=== PATIENT | male | born 1955 ===

== ENCOUNTER 2019-01-17 01:14 | Emergency (ER) | payer OTHER ==
--- NOTE | 2019-01-17 07:55 | RAD ---
EXAM: Chest PA and lateral: HISTORY: Cough COMPARISON: None FINDINGS: Sternotomy wires and vascular rings are noted. Heart: Normal cardiac silhouette Aorta: Unremarkable Pulmonary vessels: Normal Costophrenic angles: Costophrenic angles are clear. Lungs: No consolidation or masses. Pneumothorax: No pneumothorax Osseous structures: No osseous abnormalities IMPRESSION: No acute cardiopulmonary process.
== END 2019-01-17 02:23 | disposition home or self-care (01) ==
LOC: ERS 01:14
DX: R05 Cough (principal); E11.9 Type 2 diabetes mellitus without complications; Z79.4 Long term (current) use of insulin
CPT/HCPCS: 71046

== ENCOUNTER 2019-12-24 13:56 | Inpatient (IN) | payer MEDICARE, OTHER ==
[2019-12-24] MEDS ORDERED: Cefepime 2 GM VIAL ONE (14:29)
[2019-12-24] MEDS ORDERED: Piperacillin/Tazobactam 4.5 GM VIAL ONE ×2 (14:29→15:07)
[2019-12-24] MEDS ORDERED: Ibuprofen 600 MG TAB PO SCH (14:33)
[2019-12-24] MEDS ORDERED: Acetaminophen 500 MG TAB PO SCH (14:33)
[2019-12-24] MEDS ORDERED: Piperacillin/Tazobactam 4.5 GM in Sodium Chloride 0.9% 100 ML IVPB SCH (15:00)
[2019-12-24] MEDS ORDERED: Acetaminophen 500 MG TAB ONE (15:07)
[2019-12-24] MEDS ORDERED: Ibuprofen 200 MG TAB ONE (15:07)
[2019-12-24] MEDS ORDERED: Vancomycin 1 GM/200 ML BAG ONE (15:07)
[2019-12-24] MEDS ORDERED: Sodium Chloride 0.9% 2,000 ML IV SCH (15:15)
[2019-12-24 15:30] LABS: #Basophils 0.1 thou/uL (0.0-0.2); #Lymphocytes 1.4 thou/uL (1.20-3.40); #Monocytes 1.5 thou/uL (0.11-0.59); #Neutrophils 12.8 thou/uL (1.40-6.50); %Basophils 0.4 % (0.0-1.0); %Eosinophils 0.2 % (0.0-10.0); %Lymphocytes 8.7 % (21.0-51.0); %Monocytes 9.4 % (0.0-10.0); %Neutrophils 81.3 % (42.0-75.0); Hemoglobin 12.7 g/dL (14.0-18.0); Mean Corpuscular HGB CONC 31.8 g/dL (32.0-36.0); Mean Corpuscular Hemoglobin 28.9 pg (27.0-31.0); Mean Corpuscular Volume 90.7 fL (78.0-98.0); Mean Platelet Volume 7.3 fL (7.4-10.4); Platelet Count 387 thou/uL (130-400); RBC Distribution Width 11.7 % (11.5-14.5); Red Blood Cell (RBC) Count 4.41 mill/uL (4.70-6.10); White Blood Cell (WBC) Count 15.7 thou/uL (4.8-10.8)
--- NOTE | 2019-12-24 15:37 | RAD ---
Exam: Chest one view HISTORY:Hyperglycemia Comparison: 01/17/2019 FINDINGS: Cardiac silhouette:Normal cardiac silhouette. Stable epicardial pacer leads, vascular rings and landry otomy wires Aorta: Unremarkable Pulmonary vessels: Normal Costophrenic angles: Clear LUNGS: No masses or consolidation. Pneumothorax: None Osseous abnormalities: None IMPRESSION: No acute cardiopulmonary process.
[2019-12-24 15:49] LABS: ALT (SGPT) 10 U/L (8-55); AST (SGOT) 12 U/L (5-34); Albumin 2.9 g/dL (3.4-4.8); Alkaline Phosphatase 388 U/L (40-110); Anion Gap 16 mmol/L (10-20); BUN (Urea Nitrogen) 35 mg/dL (8.4-25.7); Bilirubin, Total 0.4 mg/dL (0.2-1.2); Calc. Creatinine Clearance 0 mL/min (70-130); Calcium 9.1 mg/dL (7.8-10.44); Carbon Dioxide 26 mmol/L (23-31); Chloride 90 mmol/L (98-107); Estimated GFR-MDRD 30; Globulin 4.2 g/dL (2.4-3.5); Lipase 81 U/L (8-78); Potassium 5.5 mmol/L (3.5-5.1); Protein, Total 7.1 g/dL (5.8-8.1); Sodium 126 mmol/L (136-145)
[2019-12-24 15:50] LABS: Hemoglobin A1c Greater than 14.0 % (4.0-6.0)
[2019-12-24 15:57] LABS: Glucose 869 mg/dL (80-115)
[2019-12-24 16:18] LABS: CKMB 1.8 ng/mL (0-6.6)
[2019-12-24] MEDS ORDERED: Senokot S 8.6-50 MG TAB PO PRN (16:36)
[2019-12-24] MEDS ORDERED: Bisacodyl 5 MG TAB PO PRN (16:36)
[2019-12-24] MEDS ORDERED: INSULIN REGULAR IN 0.9 % NACL 100 UNIT/100 ML BAG ONE (16:36)
[2019-12-24] MEDS ORDERED: Dextrose 5% in Water 1,000 ML IV PRN (16:41)
[2019-12-24] MEDS ORDERED: Dextrose 50% Abboject 50 ML SYRINGE SLOW IVP PRN (16:41)
--- NOTE | 2019-12-24 16:49 | PDOC.HHP ---
Hospitalist HPI - History of Present Illness Left foot pain History of Present Illness: The patient is a pleasant 64 years old gentleman who has significant past medical history of uncontrolled diabetes, CAD with history of CABG x4, who presented to ED with complaint of generalized fatigue, left foot pain. He was found to have a fever of 100.3. He is satting in low 90s on room air. Apparently his has been dealing with Covid for the past weeks. He also endorsed some nonproductive cough. Initial work-up in the ED, found the patient had a blood glucose of greater than 800. His white count was elevated. His lactic acid was normal. His hemoglobin A1c was greater than 14. Anion gap within normal limit, his bicarb was normal. His beta hydroxybutyric acid was elevated. Hospitalist was asked to admit the patient for DKA, and sepsis. However, it does not appear to be patient in full-blown DKA as his bicarb and anion gap were normal. No chest pain or sob. Hospitalist ROS - Review of Systems Other: Complete review of systems have been assessed and discussed with the patient. Negative and positive pertinent symptoms noted in the HPI; ALL other systems are reviewed and negative. Hospitalist History - Past Medical History Cardiac: reports: CAD, HTN Endocrine: reports: Diabetes - Past Surgical History Past Surgical History: reports: Cholecystectomy, CABG - Family History Family History: reports: cardiac disorder - Social History Alcohol: reports: None Living Situation: Alone Domestic Violence: Negative Activity level: uses cane/walker - Exam General Appearance: NAD Eye: PERRL ENT: normocephalic atraumatic Neck: supple Heart: RRR, no murmur Respiratory: CTAB, no wheezes Gastrointestinal: soft, non-tender Extremities: no cyanosis, no clubbing, no edema, 1+ LE edema Extremities - other findings: diabetic foot ulcer, medial aspect of left metatarsal. erythema. no draing Neurological: cranial nerve grossly intact Musculoskeletal: normal tone Psychiatric: normal affect, normal behavior, A&O x 3 Hospitalist Results - Labs Result Diagrams: 12/24/19 15:06 12/24/19 15:07 Lab results: WBC 15.7 thou/uL (4.8-10.8) H 12/24/19 15:06 Hgb 12.7 g/dL (14.0-18.0) L 12/24/19 15:06 Hct 40.0 % (42.0-52.0) L 12/24/19 15:06 MCV 90.7 fL (78.0-98.0) 12/24/19 15:06 Plt Count 387 thou/uL (130-400) 12/24/19 15:06 Neutrophils % 81.3 % (42.0-75.0) H 12/24/19 15:06 Sodium 126 mmol/L (136-145) L 12/24/19 15:07 Potassium 5.5 mmol/L (3.5-5.1) H 12/24/19 15:07 Chloride 90 mmol/L (98-107) L 12/24/19 15:07 Carbon Dioxide 26 mmol/L (23-31) 12/24/19 15:07 BUN 35 mg/dL (8.4-25.7) H 12/24/19 15:07 Creatinine 2.21 mg/dL (0.7-1.3) H 12/24/19 15:07 Glucose 869 mg/dL (80-115) H* 12/24/19 15:07 Lactic Acid 2.2 mmol/L (0.5-2.2) 12/24/19 15:06 Calcium 9.1 mg/dL (7.8-10.44) 12/24/19 15:07 Total Bilirubin 0.4 mg/dL (0.2-1.2) 12/24/19 15:07 AST 12 U/L (5-34) 12/24/19 15:07 ALT 10 U/L (8-55) 12/24/19 15:07 Alkaline Phosphatase 388 U/L (40-110) H 12/24/19 15:07 CK-MB (CK-2) 1.8 ng/mL (0-6.6) 12/24/19 15:22 Troponin I 0.048 ng/mL (< 0.028) H 12/24/19 15:22 B-Natriuretic Peptide 77.0 pg/mL (0-100) 12/24/19 15:22 Serum Total Protein 7.1 g/dL (5.8-8.1) 12/24/19 15:07 Albumin 2.9 g/dL (3.4-4.8) L 12/24/19 15:07 Lipase 81 U/L (8-78) H 12/24/19 15:07 - EKG Interpretation EKG: EKG reviewed by me, normal sinus rhythm. No ST changes or T wave inversion. Exam: Chest one view HISTORY:Hyperglycemia Comparison: 01/17/2019 FINDINGS: Cardiac silhouette:Normal cardiac silhouette. Stable epicardial pacer leads, vas cular rings and landry otomy wires Aorta: Unremarkable Pulmonary vessels: Normal Costophrenic angles: Clear LUNGS: No masses or consolidation. Pneumothorax: None Osseous abnormalities: None IMPRESSION: No acute cardiopulmonary process. Hospitalist H&P A/P - Plan Plan: This is a pleasant 64 years old gentleman who has significant past medical history of uncontrolled hypertension, CAD with history of CABG, who presented to the ED with 1-2 weeks history of generalized weakness, and left foot pain. Sepsis, present on admission - suspect left foot as possible source of infection --Patient is currently hemodynamically stable. Will admit him to telemetry for further management. --Continue broad-spectrum IV antibiotic with Zosyn, and vancomycin. Will request pharmacy to dose --Follow cultures Diabetes type 2, uncontrolled with hyperglycemia, A1C >14 --Does not appeared patient is in DKA, as his anion gap, and bicarb were within normal limits --We will continue with aggressive IV fluid hydration, insulin drip, will get his blood glucose under control. --Add insulin sliding scale Left diabetic foot ulcer with acute cellulitis - concerning for possible osteomyelitis --We will obtain left foot x-ray, may need MRI of his right left foot. --Empiric IV antibiotic as above CAD with history of CABG --Currently is no chest pain. Awaiting for his home medication Cough with history of Covid exposure --Since patient has had fevers on admission, and history of Covid exposure. Will keep patient in isolation, while waiting for Covid PCR --CXR reviewed, unremarkable DVT ppx: Lovenox GI ppx: Pepcid Code Status: Full code Anticipated Dispo: Home when medically stable
[2019-12-24] MEDS ORDERED: Piperacillin/Tazobactam 2.25 GM in Sodium Chloride 0.9% 100 ML IVPB SCH ×2 (17:00→18:00)
[2019-12-24] MEDS ORDERED: Vancomycin 1 GM in Premix Bag 1 BAG IVPB SCH (17:00)
[2019-12-24 18:05] LABS: Bacteria/HPF None Seen HPF (None Seen); Bilirubin Negative (Negative); Blood, Urine 1+ (Negative); Clarity Clear (Clear); Glucose, Urine (Dipstick) Greater than 1000 mg/dL (Negative); Ketone, Urine 20 mg/dL (Negative); Leukocyte Negative Leu/uL (Negative); Nitrite Negative (Negative); Protein, Urine (Dipstick) 100 mg/dL (Neg-Trace); RBC/HPF 0-3 HPF (0-3); Specific Gravity, Urine 1.027 (1.002-1.036); Squamous Epithelial None Seen HPF (0-3); Urobilinogen Normal mg/dL (Less than 2); WBC/HPF 0-3 HPF (0-3); pH, Urine 5.5 (5.0-9.0)
[2019-12-24 18:12] LABS: Lactic Acid 1.2 mmol/L (0.5-2.2)
[2019-12-24 18:41] LABS: Glucose 750 mg/dL (80-115)
[2019-12-24] MEDS: Sodium Chloride 0.9% 1,000 ML IV SCH ×2 (20:41→23:59)
[2019-12-24] MEDS: Famotidine 20 MG TAB PO SCH (20:57)
[2019-12-24] MEDS: HumaLOG 300 UNITS/3 ML VIAL SC PRN ×2 (20:58→22:37)
[2019-12-24 22:19] VITALS: BMI 36.6
[2019-12-24] MEDS ORDERED: HUMULIN R 100 UNITS in Sodium Chloride 0.9% 100 ML IVPB SCH (23:30)
[2019-12-24 23:48] LABS: Anion Gap 13 mmol/L (10-20); BUN (Urea Nitrogen) 33 mg/dL (8.4-25.7); Calc. Creatinine Clearance 68 mL/min (70-130); Carbon Dioxide 23 mmol/L (23-31); Chloride 100 mmol/L (98-107); Estimated GFR-MDRD 42; Sodium 132 mmol/L (136-145)
[2019-12-24 23:53] LABS: Troponin I 0.046 ng/mL (< 0.028)
[2019-12-24 23:56] LABS: Glucose 582 mg/dL (80-115)
[2019-12-25 04:21] LABS: Anion Gap 17 mmol/L (10-20); BUN (Urea Nitrogen) 31 mg/dL (8.4-25.7); Calc. Creatinine Clearance 76 mL/min (70-130); Calcium 8.8 mg/dL (7.8-10.44); Carbon Dioxide 21 mmol/L (23-31); Chloride 102 mmol/L (98-107); Estimated GFR-MDRD 48; Glucose 247 mg/dL (80-115); Potassium 4.2 mmol/L (3.5-5.1); Sodium 136 mmol/L (136-145)
[2019-12-25 04:44] LABS: #Eosinphils 0.1 thou/uL (0.0-0.7); #Lymphocytes 2.2 thou/uL (1.20-3.40); #Monocytes 1.1 thou/uL (0.11-0.59); #Neutrophils 10.2 thou/uL (1.40-6.50); %Basophils 0.3 % (0.0-1.0); %Eosinophils 0.7 % (0.0-10.0); %Monocytes 8.3 % (0.0-10.0); %Neutrophils 74.7 % (42.0-75.0); Hemoglobin 11.9 g/dL (14.0-18.0); Mean Corpuscular HGB CONC 34.4 g/dL (32.0-36.0); Mean Corpuscular Hemoglobin 29.9 pg (27.0-31.0); Mean Corpuscular Volume 87.1 fL (78.0-98.0); Platelet Count 332 thou/uL (130-400); RBC Distribution Width 11.6 % (11.5-14.5); Red Blood Cell (RBC) Count 3.97 mill/uL (4.70-6.10); White Blood Cell (WBC) Count 13.6 thou/uL (4.8-10.8)
[2019-12-25] MEDS: Enoxaparin Sodium 30 MG/0.3 ML SYRINGE SC SCH (07:54)
[2019-12-25] MEDS: Sodium Chloride 0.9% 1,000 ML IV SCH ×3 (07:54→21:46)
[2019-12-25] MEDS: Famotidine 20 MG TAB PO SCH ×2 (07:54→21:41)
[2019-12-25 08:14] LABS: Anion Gap 12 mmol/L (10-20); BUN (Urea Nitrogen) 31 mg/dL (8.4-25.7); Calc. Creatinine Clearance 83 mL/min (70-130); Calcium 8.4 mg/dL (7.8-10.44); Carbon Dioxide 26 mmol/L (23-31); Chloride 103 mmol/L (98-107); Estimated GFR-MDRD 52; Glucose 223 mg/dL (80-115); Potassium 4.2 mmol/L (3.5-5.1); Sodium 137 mmol/L (136-145)
--- NOTE | 2019-12-25 10:45 | RAD ---
Radiograph left foot 3 views: 12/25/2019 HISTORY: 64-year-old male with diabetic foot ulcer. Concern for osteomyelitis. COMPARISON: None FINDINGS: There is subcutaneous emphysema in the dorsum of the foot, overlying the third, fourth, and fifth met atarsals, from the shafts to the heads, and in the spaces between them. Numerous reticular lucencies overlying these portions of the bones, as well as bases of the corresponding proximal phala nges, could represent just the overlying soft tissue gas, on the AP and oblique views, although it is difficult to completely rule out permeative lesions involving these bones. No periostitis. No frac ture or dislocation. IMPRESSION: 1.) Subcutaneous emphysema of the left foot dorsal and deep soft tissues: Evidence for gangrene. 2) indeterminate for osteomyelitis.
[2019-12-25] MEDS ORDERED: Ondansetron PF 4 MG/2 ML Vial IVP PRN (10:46)
[2019-12-25] MEDS: HYDROcodone/Acetaminophen 5/325 mg Tablet PO PRN (11:42)
[2019-12-25 11:46] LABS: Anion Gap 13 mmol/L (10-20); BUN (Urea Nitrogen) 31 mg/dL (8.4-25.7); Calc. Creatinine Clearance 77 mL/min (70-130); Calcium 7.8 mg/dL (7.8-10.44); Carbon Dioxide 23 mmol/L (23-31); Chloride 104 mmol/L (98-107); Estimated GFR-MDRD 48; Glucose 286 mg/dL (80-115); Potassium 3.8 mmol/L (3.5-5.1); Sodium 136 mmol/L (136-145)
[2019-12-25 12:50] LABS: SARS-CoV-2 MS2 Positive; SARS-CoV-2 N Gene Negative; SARS-CoV-2 S Gene Negative; SARS-CoV-2 by NAA Not Detected (NotDetected); SARS-CoV-2 orf1ab Negative
--- NOTE | 2019-12-25 16:01 | PDOC.HOSPP ---
- Subjective Subjective: Patient was seen examined at bedside. Patient stated he is feeling a lot better. His blood sugar has been well controlled. Renal functions improve. Blood culture came back positive for gram-positive cocci's on preliminary report. He is currently is on empiric IV antibiotic with Zosyn and vancomycin. X-rays of the left foot is indeterminate, will obtain MRI - Objective Vital Signs & Weight: Vital Signs (12 hours) Temp Pulse Ox 12/25/19 08:00 101.3 F H 98 Weight Admit Weight 233 lb 8 oz Weight 233 lb 8 oz I&O: 12/24/19 12/25/19 12/26/19 06:59 06:59 06:59 Intake Total 1980 Output Total 800 Balance 1180 Result Diagrams: 12/25/19 03:40 12/25/19 11:13 Additional Labs: Accuchecks 12/25/19 12/25/19 12/25/19 11:39 10:05 09:22 POC Glucose 250 H 251 H 102 H 12/25/19 12/25/19 12/25/19 05:10 04:16 03:41 POC Glucose 189 H 172 H 226 H 12/25/19 01:40 POC Glucose 286 H Radiology Reviewed by me: Yes EKG Reviewed by me: Yes Hospitalist ROS - Medication Medications: Active Medications Generic Name Dose Route Start Last Admin Trade Name Freq PRN Reason Stop Dose Admin Hydrocodone Bitart/Acetaminophen 1 tab 12/24/19 16:36 12/25/19 11:42 Hydrocodone/Acetaminophen 5/325 Mg Tablet PO 1 tab Q4H PRN Administration Moderate Pain (4-6) Enoxaparin Sodium 30 mg 12/25/19 09:00 12/25/19 07:54 Enoxaparin Sodium 30 Mg/0.3 Ml Syringe SC 30 mg 0900 MASSIEL Administration Famotidine 20 mg 12/24/19 21:00 12/25/19 07:54 Famotidine 20 Mg Tab PO 20 mg BID MASSIEL Administration Insulin Human Lispro 0 units 12/24/19 16:41 12/24/19 20:58 Humalog 300 Units/3 Ml Vial SC 13 unit .AGGRESSIVE SLIDING PRN Administration Aggressive Correctional Scale Ondansetron HCl 4 mg 12/25/19 10:46 12/25/19 11:42 Ondansetron Pf 4 Mg/2 Ml Vial IVP 4 mg Q6H PRN Administration Nausea/Vomiting Sodium Chloride 10 ml 12/25/19 09:00 12/25/19 07:54 Flush - Normal Saline 10 Ml Syringe IVF 10 ml Q12HR MASSIEL Administration - Exam General Appearance: NAD Eye: PERRL ENT: normocephalic atraumatic Neck: supple Heart: RRR Respiratory: CTAB, no wheezes Gastrointestinal: soft Extremities: no cyanosis Extremities - other findings: left foot ulcer with gangrene and erythema Skin: normal turgor Neurological: cranial nerve grossly intact Musculoskeletal: normal tone Psychiatric: normal affect Hosp A/P - Plan This is a pleasant 64 years old gentleman who has significant past medical history of uncontrolled hypertension, CAD with history of CABG, who presented to the ED with 1-2 weeks history of generalized weakness, and left foot pain. Sepsis, present on admission - suspect left foot as possible source of infection --Patient is currently hemodynamically stable. --Continue broad-spectrum IV antibiotic with Zosyn, and vancomycin. Pharmacy is dosing vanc --Follow cultures GPC Bacteremia - on prelim culture reports --cont IV abx, follow sensitivity Left diabetic foot ulcer with acute cellulitis - concerning for possible osteomyelitis --XR inderminate, check MRI of his right left foot. --cont local wound --Surgery consult --cont IV abx as above Diabetes type 2, uncontrolled with hyperglycemia, A1C >14 --d/c insulin gtt, transition to SQ, monitor BG and adjust prn CAD with history of CABG --Currently is no chest pain. Resumed home meds Cough with history of Covid exposure --Since patient has had fevers on admission, and history of Covid exposure. Will keep patient in isolation, while waiting for Covid PCR - pending --CXR reviewed, unremarkable TOSHIA on CKD3 --suspect Cr probably at baseline --Monitor, avoid nephrotoxic agent DVT ppx: Lovenox GI ppx: Pepcid Code Status: Full code Anticipated Dispo: Home when medically stable
[2019-12-25] MEDS: HumaLOG 300 UNITS/3 ML VIAL SC PRN ×2 (17:21→21:46)
[2019-12-25] MEDS ORDERED: FLU VACC QS2020-21(6MOS UP)/PF 60 MCG/0.5 ML SYRINGE IM ONE (21:00)
[2019-12-25] MEDS ORDERED: Atorvastatin Calcium 40 MG TAB PO SCH (21:00)
[2019-12-25] MEDS ORDERED: Gabapentin 100 MG CAP PO SCH (21:00)
[2019-12-25] MEDS ORDERED: Carvedilol 6.25 MG TAB PO SCH (21:00)
[2019-12-25] MEDS ORDERED: Insulin Glargine 25 UNITS in Pre-Filled Syringe 1 EACH SC SCH (21:00)
[2019-12-25] MEDS ORDERED: Non-Formulary Item 1 EACH (Fluticasone Propionate [Flonase Allergy Relief] 9.9 ML Bottle) INH SCH (21:00)
[2019-12-25] MEDS: traMADol HCl 50 MG TAB PO PRN (21:40)
[2019-12-25] MEDS: Gabapentin 300 MG CAP PO SCH (21:41)
[2019-12-25] MEDS: Acetaminophen 500 MG TAB PO PRN (21:42)
[2019-12-25] MEDS: Gabapentin 100 MG CAP PO SCH (21:42)
[2019-12-25] MEDS: Carvedilol 6.25 MG TAB PO SCH (21:42)
[2019-12-25] MEDS: Atorvastatin Calcium 40 MG TAB PO SCH (21:42)
--- NOTE | 2019-12-26 01:02 | CON ---
DATE OF CONSULTATION: HISTORY OF PRESENT ILLNESS: Khanh Ross is a 64-year-old male, obese, 5 feet 7 inches, 233 pounds, 36 BMI, diabetic; has 3 weeks of left foot problems, progressive. He was admitted by the hospitalist. His white count is 13,000 , hemoglobin 11.9. BUN is slightly elevated. Glucose is elevated. Hemoglobin A1c of 14. I have been asked to see him regarding his left foot. He has x-rays of his left foot performed revealing questionable changes of osteomyelitis and some subcutaneous gas. The patient has cellulitis of his left foot to the ankle. He has necrotic skin in the lateral aspect of the dorsum of his foot proximally. He has purulent blistering of the distal dorsum of the foot. He has a wound over his metatarsophalangeal joint of his right foot with 3 cm diameter eschar. He has a small wound over the medial aspect of his metatarsophalangeal joint of the right great toe medially without cellulitis. There is some thickened skin here without evidence of , although some slight redness. The patient has palpable popliteal pulses. I cannot feel pulses in his foot. He has a remote history of smoking. Recommendation at this time is guillotine amputation of left lower leg tomorrow. He understands risks and benefits. We will then plan formal left BKA early next week. He will need rehab postoperatively for transfers and mobility next week. ALLERGIES: LISTED CODEINE. THIS CAUSES GI UPSET WITHOUT ANY ALLERGIC REACTIONS. SOCIAL HISTORY: Tobacco cessation many years ago. Alcohol rarely. MEDICATIONS: At home: 1. Bilberry. 2. Potassium. 3. Metformin. 4. Gabapentin. 5. Plavix. 6. Lipitor. 7. Benadryl. 8. Coreg. 9. Aspirin. 10. Insulin. PAST SURGICAL HISTORY: Laparoscopic cholecystectomy; coronary artery bypass grafting in [place] 5 years ago, has not seen a stator tester since. PAST MEDICAL HISTORY: Diabetes mellitus, stable coronary artery disease, hypertension, COVID negative. The patient lives with his . His is not in good health. MRI scan ordered for the left foot pending. Job ID: [id number]
[2019-12-26 03:52] LABS: #Basophils 0.1 thou/uL (0.0-0.2); #Eosinphils 0.1 thou/uL (0.0-0.7); #Lymphocytes 3.2 thou/uL (1.20-3.40); #Monocytes 1.5 thou/uL (0.11-0.59); #Neutrophils 7.9 thou/uL (1.40-6.50); %Basophils 0.6 % (0.0-1.0); %Eosinophils 0.5 % (0.0-10.0); %Lymphocytes 24.8 % (21.0-51.0); %Monocytes 11.8 % (0.0-10.0); %Neutrophils 62.3 % (42.0-75.0); Hemoglobin 10.1 g/dL (14.0-18.0); Mean Corpuscular HGB CONC 33.3 g/dL (32.0-36.0); Mean Corpuscular Hemoglobin 29.4 pg (27.0-31.0); Mean Corpuscular Volume 88.3 fL (78.0-98.0); Mean Platelet Volume 7.3 fL (7.4-10.4); Platelet Count 317 thou/uL (130-400); RBC Distribution Width 11.7 % (11.5-14.5); Red Blood Cell (RBC) Count 3.45 mill/uL (4.70-6.10); White Blood Cell (WBC) Count 12.7 thou/uL (4.8-10.8)
[2019-12-26 04:14] LABS: Anion Gap 14 mmol/L (10-20); BUN (Urea Nitrogen) 29 mg/dL (8.4-25.7); Calc. Creatinine Clearance 64 mL/min (70-130); Calcium 7.8 mg/dL (7.8-10.44); Carbon Dioxide 19 mmol/L (23-31); Chloride 103 mmol/L (98-107); Estimated GFR-MDRD 39; Glucose 445 mg/dL (80-115); Potassium 4.3 mmol/L (3.5-5.1); Sodium 132 mmol/L (136-145)
[2019-12-26] MEDS: traMADol HCl 50 MG TAB PO PRN ×3 (05:26→23:50)
[2019-12-26] MEDS: Fluticasone Propionate Nasal Spray 16 gm Bottle NASAL SCH ×2 (05:30→17:33)
[2019-12-26] MEDS: HumaLOG 300 UNITS/3 ML VIAL SC PRN ×4 (06:17→23:56)
[2019-12-26] MEDS: Enoxaparin Sodium 30 MG/0.3 ML SYRINGE SC SCH (08:33)
[2019-12-26] MEDS: Aspirin Chewable 81 MG TAB PO SCH (08:33)
[2019-12-26] MEDS: Gabapentin 300 MG CAP PO SCH ×3 (08:34→21:06)
[2019-12-26] MEDS: Famotidine 20 MG TAB PO SCH ×2 (08:34→21:07)
--- NOTE | 2019-12-26 08:56 | RAD ---
RIGHT FOOT 3 VIEWS: Date: 12/26/2019 HISTORY: Right great toe metatarsophalangeal ulcer. FINDINGS: Mild osteoarthrosis and degenerative change. Bandage material over the great toe. No focal bony erosi ve or destructive changes. Evidence for vascular calcifications. Minimal soft tissue swelling of the forefoot and great toe. IMPRESSION: Minimal nonspecific soft tissue swelling of the great toe and forefoot. No over bony erosive or destr uctive changes. If there is concern for osteomyelitis, follow-up MRI suggested. POS: RRE
[2019-12-26] MEDS ORDERED: Insulin Glargine 25 UNITS in Pre-Filled Syringe 1 EACH SC SCH (09:00)
[2019-12-26] MEDS ORDERED: Aspirin Chewable 81 MG TAB PO SCH (09:00)
[2019-12-26] MEDS ORDERED: Fentanyl 100 MCG/2 ML VIAL ONE ×2 (12:06→13:45)
[2019-12-26] MEDS ORDERED: Insulin Regular 300 UNITS/3 ML VIAL ONE (12:06)
[2019-12-26] MEDS ORDERED: PROPOFOL 200 MG/20 ML VIAL ONE (12:09)
[2019-12-26] MEDS ORDERED: Lidocaine 1% PF 5 ML VIAL ONE (12:09)
[2019-12-26] MEDS ORDERED: Ondansetron PF 4 MG/2 ML Vial ONE (12:09)
[2019-12-26] MEDS ORDERED: Promethazine HCl 25 MG/ML VIAL IM PRN (13:04)
[2019-12-26] MEDS ORDERED: Promethazine HCl 25 MG/ML VIAL SLOW IVP PRN (13:04)
[2019-12-26] MEDS ORDERED: Ondansetron HCl/PF 4 MG/2 ML Vial IVP PRN (13:04)
[2019-12-26] MEDS ORDERED: Acetaminophen 500 MG TAB PO PRN (13:26)
[2019-12-26] MEDS: Sodium Chloride 0.9% 1,000 ML IV SCH (15:49)
--- NOTE | 2019-12-26 17:24 | OP ---
DATE OF PROCEDURE: 12/26/2019 PREOPERATIVE DIAGNOSES: Diabetic gangrene and gas gangrene, left foot; septic foot, neglected for 3 weeks; peripheral artery disease. POSTOPERATIVE DIAGNOSES: Diabetic gangrene and gas gangrene, left foot; septic foot, neglected for 3 weeks; peripheral artery disease. PROCEDURE PERFORMED: Left leg amputation guillotine above the ankle, very little bleeding. ANESTHESIA: General. DESCRIPTION OF PROCEDURE: The patient was taken to the operating room, where under general anesthesia, the left lower extremity was prepared with Betadine and draped in routine fashion. Circumferential incision was made above the ankle, carried down skin and subcutaneous tissue, connective tissue to the bone, transecting the bone with a Gigli saw, and gained hemostasis with cautery. Anterior tibial vascular complex ligated with 2-0 silk ties. It had some venous bleeding, but no arterial. There was only small vessel bleeding. No large major vessel bleeding. The patient tolerated the procedure well. PLAN: Return to the operating room next week for formal BKA. Job ID: [id number]
[2019-12-26] MEDS: Piperacillin/Tazobactam 2.25 GM in Sodium Chloride 0.9% 100 ML IVPB SCH ×2 (17:35→23:49)
--- NOTE | 2019-12-26 17:57 | PDOC.HOSPP ---
- Subjective Subjective: s/p left leg guillotine above ankle, somnolent. d/w Dr. Vega back to OR for formal BKA on Sunday - Objective Vital Signs & Weight: Vital Signs (12 hours) Temp Pulse Ox 12/26/19 15:30 98.2 F 12/26/19 08:00 92 L 12/26/19 07:16 97.7 F Weight Admit Weight 233 lb 8 oz Weight 233 lb 8 oz Most Recent Monitor Data Heart Rate from ECG 87 NIBP 154/84 NIBP BP-Mean 107 Respiration from ECG 20 SpO2 96 I&O: 12/25/19 12/26/19 12/27/19 06:59 06:59 06:59 Intake Total 1980 2820 Output Total 800 950 Balance 1180 1870 Result Diagrams: 12/26/19 03:22 12/26/19 03:22 Additional Labs: Accuchecks 12/26/19 12/26/19 12/26/19 17:19 13:08 11:05 POC Glucose 335 H 288 H 317 H 12/26/19 12/25/19 12/25/19 05:51 21:45 08:10 POC Glucose 400 H 298 H 203 H 12/25/19 12/24/19 12/24/19 06:25 22:17 20:06 POC Glucose 218 H Greater than 500 H Greater than 500 H 12/24/19 12/24/19 12/24/19 18:36 17:24 14:12 POC Glucose Greater than 500 H Greater than 500 H Greater than 500 H Radiology Reviewed by me: Yes EKG Reviewed by me: Yes Hospitalist ROS - Medication Medications: Active Medications Generic Name Dose Route Start Last Admin Trade Name Freq PRN Reason Stop Dose Admin Acetaminophen 1,000 mg 12/25/19 19:08 12/25/19 21:42 Acetaminophen 500 Mg Tab PO 1,000 mg Q6H PRN Administration Moderate to Severe Pain (6-10) Hydrocodone Bitart/Acetaminophen 1 tab 12/24/19 16:36 12/25/19 11:42 Hydrocodone/Acetaminophen 5/325 Mg Tablet PO 1 tab Q4H PRN Administration Moderate Pain (4-6) Aspirin 81 mg 12/26/19 09:00 12/26/19 08:33 Aspirin Chewable 81 Mg Tab PO Not Given DAILY MASSIEL Atorvastatin Calcium 40 mg 12/25/19 21:00 12/25/19 21:42 Atorvastatin Calcium 40 Mg Tab PO 40 mg HS MASSIEL Administration Carvedilol 6.25 mg 12/25/19 21:00 12/25/19 21:42 Carvedilol 6.25 Mg Tab PO 6.25 mg HS MASSIEL Administration Enoxaparin Sodium 30 mg 12/25/19 09:00 12/26/19 08:33 Enoxaparin Sodium 30 Mg/0.3 Ml Syringe SC Not Given 0900 MASSIEL Famotidine 20 mg 12/24/19 21:00 12/26/19 08:34 Famotidine 20 Mg Tab PO Not Given BID MASSIEL Fluticasone Propionate 0 gm 12/26/19 06:30 12/26/19 17:33 Fluticasone Propionate Nasal Briggs 16 Gm Bottle NASAL 1 spr BID-RT MASSIEL Administration Gabapentin 100 mg 12/25/19 21:00 12/25/19 21:42 Gabapentin 100 Mg Cap PO 100 mg HS MASSIEL Administration Gabapentin 300 mg 12/25/19 21:00 12/26/19 15:45 Gabapentin 300 Mg Cap PO 300 mg TID MASSIEL Administration Sodium Chloride 1,000 mls @ 75 mls/hr 12/25/19 12:42 12/26/19 15:49 Normal Saline 0.9% IV 1,000 mls .[id number] MASSIEL Administration Insulin Glargine 25 units/ 0.25 mls @ 0 mls/hr 12/25/19 21:00 12/25/19 21:43 Miscellaneous Medication SC 0.25 mls HS MASSIEL Administration Insulin Glargine 25 units/ 0.25 mls @ 0 mls/hr 12/26/19 09:00 12/26/19 08:34 Miscellaneous Medication SC Not Given QAM MASSIEL Piperacillin Sod/Tazobactam 100 mls @ 200 mls/hr 12/26/19 16:00 12/26/19 17:35 Sod 2.25 gm/ Sodium Chloride IVPB 100 mls 0800,1600,2359 MASSIEL Administration Insulin Human Lispro 0 units 12/24/19 16:41 12/26/19 17:37 Humalog 300 Units/3 Ml Vial SC 11 unit .AGGRESSIVE SLIDING PRN Administration Aggressive Correctional Scale Insulin Human Lispro 0 units 12/25/19 20:33 10/15/20 21:46 Humalog 300 Units/3 Ml Vial SC 3 unit .BEDTIME SLIDING SC PRN Administration Bedtime Correctional Scale Ondansetron HCl 4 mg 12/25/19 10:46 12/25/19 11:42 Ondansetron Pf 4 Mg/2 Ml Vial IVP 4 mg Q6H PRN Administration Nausea/Vomiting Sertraline HCl 25 mg 12/25/19 21:00 12/26/19 08:34 Sertraline Hcl 25 Mg Tab PO Not Given BID MASSIEL Sodium Chloride 10 ml 12/25/19 09:00 12/26/19 08:41 Flush - Normal Saline 10 Ml Syringe IVF 10 ml Q12HR MASSIEL Administration Tramadol HCl 50 mg 12/25/19 19:08 12/26/19 15:45 Tramadol Hcl 50 Mg Tab PO 50 mg Q4H PRN Administration Mild Pain (1-3) - Exam General Appearance: NAD Eye: PERRL, anicteric sclera ENT: normocephalic atraumatic Neck: supple, symmetric, no JVD Heart: RRR, no murmur Respiratory: CTAB, no wheezes Gastrointestinal: soft, non-tender Extremities - other findings: s/p left above ankle amputation-dressing intact Skin: normal turgor Neurological: cranial nerve grossly intact Musculoskeletal: normal tone Psychiatric: somnolent Hosp A/P - Plan This is a pleasant 64 years old gentleman who has significant past medical history of uncontrolled hypertension, CAD with history of CABG, who presented to the ED with 1-2 weeks history of generalized weakness, and left foot pain. Sepsis, present on admission - secondary to left foot infection --Patient is currently hemodynamically stable. --Continue broad-spectrum IV antibiotic with Zosyn, and vancomycin. Pharmacy is dosing vanc --Follow cultures GPC Bacteremia - on prelim culture reports --cont IV abx, follow sensitivity Left diabetic foot ulcer with acute cellulitis - concerning for possible osteomyelitis --s/p left leg guillotine amputation above ankle --cont IV abx over the weekend --back to OR on Sunday for formal left BKA Diabetes type 2, uncontrolled with hyperglycemia, A1C >14 --d/c insulin gtt, transitioned to SQ, dose adjusted, monitor BG and adjust prn CAD with history of CABG --Currently is no chest pain. Resumed home meds Cough with history of Covid exposure --Since patient has had fevers on admission, and history of Covid exposure. Will keep patient in isolation, while waiting for Covid PCR - pending --CXR reviewed, unremarkable TOSHIA on CKD3 --suspect Cr probably at baseline --Monitor, avoid nephrotoxic agent DVT ppx: Lovenox GI ppx: Pepcid Code Status: Full code Anticipated Dispo: Home when medically stable
[2019-12-26] MEDS: Gabapentin 100 MG CAP PO SCH (21:06)
[2019-12-26] MEDS: Carvedilol 6.25 MG TAB PO SCH (21:07)
[2019-12-26] MEDS: Atorvastatin Calcium 40 MG TAB PO SCH (21:08)
[2019-12-26] MEDS: Insulin Glargine 40 UNITS in Pre-Filled Syringe SC SCH (21:10)
[2019-12-27 04:18] LABS: Anion Gap 13 mmol/L (10-20); BUN (Urea Nitrogen) 32 mg/dL (8.4-25.7); Calc. Creatinine Clearance 61 mL/min (70-130); Calcium 7.4 mg/dL (7.8-10.44); Carbon Dioxide 18 mmol/L (23-31); Chloride 107 mmol/L (98-107); Estimated GFR-MDRD 37; Glucose 293 mg/dL (80-115); Potassium 4.5 mmol/L (3.5-5.1); Sodium 133 mmol/L (136-145)
[2019-12-27] MEDS: Sodium Chloride 0.9% 1,000 ML IV SCH ×3 (04:18→23:26)
[2019-12-27] MEDS: HumaLOG 300 UNITS/3 ML VIAL SC PRN ×4 (05:58→21:04)
[2019-12-27] MEDS: Fluticasone Propionate Nasal Spray 16 gm Bottle NASAL SCH ×2 (05:58→20:56)
[2019-12-27 07:31] LABS: Hemoglobin 11.3 g/dL (14.0-18.0); Mean Corpuscular HGB CONC 32.9 g/dL (32.0-36.0); Mean Corpuscular Hemoglobin 29.5 pg (27.0-31.0); Mean Corpuscular Volume 89.9 fL (78.0-98.0); RBC Distribution Width 11.9 % (11.5-14.5); Red Blood Cell (RBC) Count 3.83 mill/uL (4.70-6.10)
[2019-12-27 08:38] LABS: #Basophils 0.1 thou/uL (0.0-0.2); #Eosinphils 0.3 thou/uL (0.0-0.7); #Lymphocytes 4.4 thou/uL (1.20-3.40); #Monocytes 1.2 thou/uL (0.11-0.59); #Neutrophils 6.7 thou/uL (1.40-6.50); %Basophils 0.6 % (0.0-1.0); %Eosinophils 2.5 % (0.0-10.0); %Lymphocytes 34.8 % (21.0-51.0); %Monocytes 9.3 % (0.0-10.0); %Neutrophils 52.7 % (42.0-75.0); Mean Platelet Volume 8.1 fL (7.4-10.4); Platelet Count 237 thou/uL (130-400); Platelet Morphology Comment PLT clumps seen-ADEQ; White Blood Cell (WBC) Count 12.8 thou/uL (4.8-10.8)
[2019-12-27] MEDS: Clopidogrel Bisulfate 75 MG TAB PO SCH (08:57)
[2019-12-27] MEDS: Famotidine 20 MG TAB PO SCH ×2 (08:57→20:53)
[2019-12-27] MEDS: Enoxaparin Sodium 30 MG/0.3 ML SYRINGE SC SCH (08:57)
[2019-12-27] MEDS: Gabapentin 300 MG CAP PO SCH ×3 (08:58→20:52)
[2019-12-27] MEDS: Aspirin Chewable 81 MG TAB PO SCH (08:58)
[2019-12-27] MEDS: Piperacillin/Tazobactam 2.25 GM in Sodium Chloride 0.9% 100 ML IVPB SCH ×3 (08:58→23:25)
[2019-12-27] MEDS: Insulin Glargine 40 UNITS in Pre-Filled Syringe SC SCH ×2 (09:01→20:55)
[2019-12-27] MEDS: Vancomycin 1.5 GRAM/300 ML BAG 1.5 GM in Premix Bag 1 BAG IVPB SCH (09:01)
--- NOTE | 2019-12-27 15:40 | PDOC.HOSPP ---
- Subjective Encounter Date: 12/27/19 Subjective: The patient was seen and examined. He appears to be comfortable and did not complain of any excessive pain today. - Objective Vital Signs & Weight: Vital Signs (12 hours) Temp Pulse Ox 12/27/19 12:00 97.4 F L 12/27/19 07:33 98 12/27/19 07:28 97.6 F 12/27/19 03:48 97.0 F L Weight Admit Weight 233 lb 8 oz Weight 233 lb 8 oz Most Recent Monitor Data Heart Rate from ECG 75 NIBP 124/73 NIBP BP-Mean 90 Respiration from ECG 23 SpO2 93 I&O: 12/26/19 12/27/19 12/28/19 06:59 06:59 06:59 Intake Total 2820 2356 240 Output Total 950 451 Balance 1870 1905 240 Result Diagrams: 12/27/19 06:57 12/27/19 03:27 Additional Labs: Accuchecks 12/27/19 12/27/19 12/26/19 10:57 05:54 23:56 POC Glucose 280 H 296 H 375 H 12/26/19 12/26/19 20:44 17:19 POC Glucose 454 H 335 H Hospitalist ROS - Medication Medications: Active Medications Generic Name Dose Route Start Last Admin Trade Name Freq PRN Reason Stop Dose Admin Acetaminophen 1,000 mg 12/25/19 19:08 12/25/19 21:42 Acetaminophen 500 Mg Tab PO 1,000 mg Q6H PRN Administration Moderate to Severe Pain (6-10) Hydrocodone Bitart/Acetaminophen 1 tab 12/24/19 16:36 12/25/19 11:42 Hydrocodone/Acetaminophen 5/325 Mg Tablet PO 1 tab Q4H PRN Administration Moderate Pain (4-6) Aspirin 81 mg 12/26/19 09:00 12/27/19 08:58 Aspirin Chewable 81 Mg Tab PO 81 mg DAILY MASSIEL Administration Atorvastatin Calcium 40 mg 12/25/19 21:00 12/26/19 21:08 Atorvastatin Calcium 40 Mg Tab PO 40 mg HS MASSIEL Administration Carvedilol 6.25 mg 12/25/19 21:00 12/26/19 21:07 Carvedilol 6.25 Mg Tab PO 6.25 mg HS MASSIEL Administration Clopidogrel Bisulfate 75 mg 12/27/19 09:00 12/27/19 08:57 Clopidogrel Bisulfate 75 Mg Tab PO 75 mg DAILY MASSIEL Administration Enoxaparin Sodium 30 mg 12/25/19 09:00 12/27/19 08:57 Enoxaparin Sodium 30 Mg/0.3 Ml Syringe SC 30 mg 0900 MASSIEL Administration Famotidine 20 mg 12/24/19 21:00 12/27/19 08:57 Famotidine 20 Mg Tab PO 20 mg BID MASSIEL Administration Fluticasone Propionate 0 gm 12/26/19 06:30 12/27/19 05:58 Fluticasone Propionate Nasal [place] 16 Gm Bottle NASAL 1 spr BID-RT MASSIEL Administration Gabapentin 100 mg 12/25/19 21:00 12/26/19 21:06 Gabapentin 100 Mg Cap PO 100 mg HS MASSIEL Administration Gabapentin 300 mg 12/25/19 21:00 12/27/19 08:58 Gabapentin 300 Mg Cap PO 300 mg TID MASSIEL Administration Sodium Chloride 1,000 mls @ 75 mls/hr 12/25/19 12:42 12/27/19 04:18 Normal Saline 0.9% IV 1,000 mls .[id number] MASSIEL Administration Vancomycin HCl 1.5 gm/ Device 300 mls @ 200 mls/hr 12/27/19 09:00 12/27/19 09:01 IVPB 300 mls 0900 MASSIEL Administration Piperacillin Sod/Tazobactam 100 mls @ 200 mls/hr 12/26/19 16:00 12/27/19 08:58 Sod 2.25 gm/ Sodium Chloride IVPB 100 mls 0800,1600,2359 MASSIEL Administration Insulin Glargine 40 units/ 0.4 mls @ 0 mls/hr 12/26/19 21:00 12/26/19 21:10 Miscellaneous Medication SC 0.4 mls HS MASSIEL Administration Insulin Glargine 40 units/ 0.4 mls @ 0 mls/hr 12/27/19 09:00 12/27/19 09:01 Miscellaneous Medication SC 0.4 mls QAM MASSIEL Administration Insulin Human Lispro 0 units 12/24/19 16:41 12/27/19 11:58 Humalog 300 Units/3 Ml Vial SC 9 unit .AGGRESSIVE SLIDING PRN Administration Aggressive Correctional Scale Insulin Human Lispro 0 units 12/25/19 20:33 12/26/19 23:56 Humalog 300 Units/3 Ml Vial SC 5 unit .BEDTIME SLIDING SC PRN Administration Bedtime Correctional Scale Ondansetron HCl 4 mg 12/25/19 10:46 12/25/19 11:42 Ondansetron Pf 4 Mg/2 Ml Vial IVP 4 mg Q6H PRN Administration Nausea/Vomiting Sertraline HCl 25 mg 12/25/19 21:00 12/27/19 08:58 Sertraline Hcl 25 Mg Tab PO 25 mg BID MASSIEL Administration Sodium Chloride 10 ml 12/25/19 09:00 12/27/19 09:01 Flush - Normal Saline 10 Ml Syringe IVF 10 ml Q12HR MASSIEL Administration Tramadol HCl 50 mg 12/25/19 19:08 12/26/19 23:50 Tramadol Hcl 50 Mg Tab PO 50 mg Q4H PRN Administration Mild Pain (1-3) - Exam General Appearance: awake alert ENT: normocephalic atraumatic Neck: supple, no JVD Heart: RRR, no murmur, no gallops, no rubs Respiratory: normal chest expansion, no tachypnea Extremities: no cyanosis, no clubbing Neurological: cranial nerve grossly intact, no new deficit Hosp A/P - Plan 12/25: This is a pleasant 64 years old gentleman who has significant past medical history of uncontrolled hypertension, CAD with history of CABG, who p resented to the ED with 1-2 weeks history of generalized weakness, and left foot pain. Sepsis, present on admission - secondary to left foot infection --Patient is currently hemodynamically stable. --Continue broad-spectrum IV antibiotic with Zosyn, and vancomycin. Pharmacy is dosing vanc --Follow cultures GPC Bacteremia - on prelim culture reports --cont IV abx, follow sensitivity Left diabetic foot ulcer with acute cellulitis - concerning for possible osteomyelitis --s/p left leg guillotine amputation above ankle --cont IV abx over the weekend --back to OR on Sunday for formal left BKA Diabetes type 2, uncontrolled with hyperglycemia, A1C >14 --d/c insulin gtt, transitioned to SQ, dose adjusted, monitor BG and adjust prn CAD with history of CABG --Currently is no chest pain. Resumed home meds Cough with history of Covid exposure --Since patient has had fevers on admission, and history of Covid exposure. Will keep patient in isolation, while waiting for Covid PCR - pending --CXR reviewed, unremarkable TOSHIA on CKD3 --suspect Cr probably at baseline --Monitor, avoid nephrotoxic agent DVT ppx: Lovenox GI ppx: Pepcid Code Status: Full code Anticipated Dispo: Home when medically stable 12/26: The patient is clinically stable. Remains on broad-spectrum antibiotics. Plan for BKA on Sunday. Sugar levels are better controlled since Lantus dosage was increased yesterday. Continue to monitor.
[2019-12-27] MEDS: Gabapentin 100 MG CAP PO SCH (20:52)
[2019-12-27] MEDS: Carvedilol 6.25 MG TAB PO SCH (20:54)
[2019-12-27] MEDS: Atorvastatin Calcium 40 MG TAB PO SCH (20:54)
[2019-12-27] MEDS: HYDROcodone/Acetaminophen 5/325 mg Tablet PO PRN (23:33)
[2019-12-27] MEDS: traMADol HCl 50 MG TAB PO PRN (23:38)
[2019-12-28 04:01] LABS: #Basophils 0.1 thou/uL (0.0-0.2); #Eosinphils 0.3 thou/uL (0.0-0.7); #Lymphocytes 3.7 thou/uL (1.20-3.40); #Monocytes 0.9 thou/uL (0.11-0.59); #Neutrophils 4.8 thou/uL (1.40-6.50); %Basophils 1.3 % (0.0-1.0); %Eosinophils 2.8 % (0.0-10.0); %Lymphocytes 38.1 % (21.0-51.0); %Monocytes 8.8 % (0.0-10.0); Hemoglobin 9.9 g/dL (14.0-18.0); Mean Corpuscular HGB CONC 33.5 g/dL (32.0-36.0); Mean Corpuscular Hemoglobin 29.3 pg (27.0-31.0); Mean Corpuscular Volume 87.5 fL (78.0-98.0); Mean Platelet Volume 7.2 fL (7.4-10.4); Platelet Count 316 thou/uL (130-400); RBC Distribution Width 11.8 % (11.5-14.5); Red Blood Cell (RBC) Count 3.37 mill/uL (4.70-6.10); White Blood Cell (WBC) Count 9.7 thou/uL (4.8-10.8)
[2019-12-28 04:18] LABS: Anion Gap 12 mmol/L (10-20); BUN (Urea Nitrogen) 33 mg/dL (8.4-25.7); Calc. Creatinine Clearance 62 mL/min (70-130); Calcium 7.1 mg/dL (7.8-10.44); Carbon Dioxide 20 mmol/L (23-31); Chloride 106 mmol/L (98-107); Estimated GFR-MDRD 38; Glucose 380 mg/dL (80-115); Potassium 3.8 mmol/L (3.5-5.1); Sodium 134 mmol/L (136-145)
[2019-12-28] MEDS: Fluticasone Propionate Nasal Spray 16 gm Bottle NASAL SCH ×2 (05:07→16:55)
[2019-12-28] MEDS: HumaLOG 300 UNITS/3 ML VIAL SC PRN ×2 (06:04→11:58)
[2019-12-28] MEDS: Aspirin Chewable 81 MG TAB PO SCH (07:49)
[2019-12-28] MEDS: Piperacillin/Tazobactam 2.25 GM in Sodium Chloride 0.9% 100 ML IVPB SCH ×2 (07:49→16:54)
[2019-12-28] MEDS: traMADol HCl 50 MG TAB PO PRN ×3 (07:50→16:57)
[2019-12-28] MEDS: Famotidine 20 MG TAB PO SCH ×2 (07:51→21:07)
[2019-12-28] MEDS: Enoxaparin Sodium 30 MG/0.3 ML SYRINGE SC SCH (07:51)
[2019-12-28] MEDS: Clopidogrel Bisulfate 75 MG TAB PO SCH (07:51)
[2019-12-28] MEDS: Vancomycin 1.5 GRAM/300 ML BAG 1.5 GM in Premix Bag 1 BAG IVPB SCH (07:52)
[2019-12-28] MEDS: Gabapentin 300 MG CAP PO SCH ×3 (07:52→21:07)
[2019-12-28] MEDS: Insulin Glargine 40 UNITS in Pre-Filled Syringe SC SCH (07:52)
[2019-12-28 08:40] LABS: Vancomycin, Trough 18.5 ug/mL
[2019-12-28] MEDS ORDERED: Tamsulosin HCl 0.4 MG CAP PO SCH (10:40)
--- NOTE | 2019-12-28 13:48 | PDOC.HOSPP ---
- Subjective Encounter Date: 12/28/19 Subjective: Patient complained of uncontrolled leg pain today. - Objective Vital Signs & Weight: Vital Signs (12 hours) Temp Pulse Ox 12/28/19 11:56 97.2 F L 12/28/19 08:00 97 12/28/19 07:02 97.0 F L 12/28/19 04:00 98.0 F Weight Admit Weight 233 lb 8 oz Weight 233 lb 8 oz Most Recent Monitor Data Heart Rate from ECG 78 NIBP 152/73 NIBP BP-Mean 99 Respiration from ECG 14 SpO2 99 I&O: 12/27/19 12/28/19 12/29/19 06:59 06:59 06:59 Intake Total 2356 2840 Output Total 451 Balance 1905 2840 Result Diagrams: 12/28/19 03:22 12/28/19 03:22 Additional Labs: Accuchecks 12/28/19 12/28/19 12/27/19 11:14 05:31 21:00 POC Glucose 202 H 301 H 307 H 12/27/19 17:21 POC Glucose 302 H Hospitalist ROS - Medication Medications: Active Medications Generic Name Dose Route Start Last Admin Trade Name Freq PRN Reason Stop Dose Admin Acetaminophen 1,000 mg 12/25/19 19:08 12/25/19 21:42 Acetaminophen 500 Mg Tab PO 1,000 mg Q6H PRN Administration Moderate to Severe Pain (6-10) Hydrocodone Bitart/Acetaminophen 1 tab 12/24/19 16:36 12/25/19 11:42 Hydrocodone/Acetaminophen 5/325 Mg Tablet PO 1 tab Q4H PRN Administration Moderate Pain (4-6) Aspirin 81 mg 12/26/19 09:00 12/28/19 07:49 Aspirin Chewable 81 Mg Tab PO 81 mg DAILY MASSIEL Administration Atorvastatin Calcium 40 mg 12/25/19 21:00 12/27/19 20:54 Atorvastatin Calcium 40 Mg Tab PO 40 mg HS MASSIEL Administration Carvedilol 6.25 mg 12/25/19 21:00 12/27/19 20:54 Carvedilol 6.25 Mg Tab PO 6.25 mg HS MASSIEL Administration Clopidogrel Bisulfate 75 mg 12/27/19 09:00 12/28/19 07:51 Clopidogrel Bisulfate 75 Mg Tab PO 75 mg DAILY MASSIEL Administration Enoxaparin Sodium 30 mg 12/25/19 09:00 12/28/19 07:51 Enoxaparin Sodium 30 Mg/0.3 Ml Syringe SC 30 mg 0900 MASSIEL Administration Famotidine 20 mg 12/24/19 21:00 12/28/19 07:51 Famotidine 20 Mg Tab PO 20 mg BID MASSIEL Administration Fluticasone Propionate 0 gm 12/26/19 06:30 12/28/19 05:07 Fluticasone Propionate Nasal [place] 16 Gm Bottle NASAL 1 spr BID-RT MASSIEL Administration Gabapentin 100 mg 12/25/19 21:00 12/27/19 20:52 Gabapentin 100 Mg Cap PO 100 mg HS MASSIEL Administration Gabapentin 300 mg 12/25/19 21:00 12/28/19 07:52 Gabapentin 300 Mg Cap PO 300 mg TID MASSIEL Administration Sodium Chloride 1,000 mls @ 75 mls/hr 12/25/19 12:42 12/27/19 23:26 Normal Saline 0.9% IV 1,000 mls .[id number] MASSIEL Administration Vancomycin HCl 1.5 gm/ Device 300 mls @ 200 mls/hr 12/27/19 09:00 12/28/19 07:52 IVPB 300 mls 0900 MASSIEL Administration Piperacillin Sod/Tazobactam 100 mls @ 200 mls/hr 12/26/19 16:00 12/28/19 07:49 Sod 2.25 gm/ Sodium Chloride IVPB 100 mls 0800,1600,2359 MASSIEL Administration Insulin Glargine 40 units/ 0.4 mls @ 0 mls/hr 12/26/19 21:00 12/27/19 20:55 Miscellaneous Medication SC 0.4 mls HS MASSIEL Administration Insulin Glargine 40 units/ 0.4 mls @ 0 mls/hr 12/27/19 09:00 12/28/19 07:52 Miscellaneous Medication SC 0.4 mls QAM MASSIEL Administration Insulin Human Lispro 0 units 12/24/19 16:41 12/28/19 11:58 Humalog 300 Units/3 Ml Vial SC 6 unit .AGGRESSIVE SLIDING PRN Administration Aggressive Correctional Scale Insulin Human Lispro 0 units 12/25/19 20:33 12/27/19 21:04 Humalog 300 Units/3 Ml Vial SC 4 unit .BEDTIME SLIDING SC PRN Administration Bedtime Correctional Scale Ondansetron HCl 4 mg 12/25/19 10:46 12/25/19 11:42 Ondansetron Pf 4 Mg/2 Ml Vial IVP 4 mg Q6H PRN Administration Nausea/Vomiting Sertraline HCl 25 mg 12/25/19 21:00 12/28/19 07:52 Sertraline Hcl 25 Mg Tab PO 25 mg BID MASSIEL Administration Sodium Chloride 10 ml 12/25/19 09:00 12/28/19 07:52 Flush - Normal Saline 10 Ml Syringe IVF 10 ml Q12HR MASSIEL Administration Tramadol HCl 50 mg 12/25/19 19:08 12/28/19 11:57 Tramadol Hcl 50 Mg Tab PO 50 mg Q4H PRN Administration Mild Pain (1-3) - Exam General Appearance: awake alert ENT: normocephalic atraumatic Neck: supple, no JVD Respiratory: normal chest expansion, no tachypnea Gastrointestinal: soft, non-tender, non-distended, normal bowel sounds Neurological: cranial nerve grossly intact, no focal deficits Hosp A/P - Plan This is a pleasant 64 years old gentleman who has significant past medical history of uncontrolled hypertension, CAD with history of CABG, who presented to the ED with 1-2 weeks history of generalized weakness, and left foot pain. Sepsis, present on admission - secondary to left foot infection --Patient is currently hemodynamically stable. --Continue broad-spectrum IV antibiotic with Zosyn, and vancomycin. Pharmacy is dosing vanc --Initial culture showing growth of Streptococcus agalactiae sensitive to current antibiotics. Left diabetic foot ulcer with acute cellulitis - concerning for possible osteomyelitis --s/p left leg guillotine amputation above ankle --cont IV abx. Plan to go back to OR on Sunday for formal left BKA Diabetes type 2, uncontrolled with hyperglycemia, A1C >14 Sugar levels are uncontrolled. Continue Lantus 40 units in the morning and add 10 units at night. . CAD with history of CABG --Currently is no chest pain. Resumed home meds Cough with history of Covid exposure --Since patient has had fevers on admission, and history of Covid exposure. Will keep patient in isolation, while waiting for Covid PCR - pending --CXR reviewed, unremarkable TOSHIA on CKD3 --suspect Cr probably at baseline --Monitor, avoid nephrotoxic agent DVT ppx: Lovenox GI ppx: Pepcid Code Status: Full code Anticipated Dispo: Home when medically stable
--- NOTE | 2019-12-28 20:56 | PRG ---
DATE OF SERVICE: 12/28/2019 SUBJECTIVE: Mr. Ross is doing well today. OBJECTIVE: GENERAL: He is stable. VITAL SIGNS: Temperature 97 degrees, heart rate 99. LABORATORY DATA: His hemoglobin is 9, white count 9.7. Basic metabolic profile normal. Mild chronic kidney disease, 33 and 1.83 of BUN and creatinine. Cultures, blood culture, Streptococcus, one of two. ASSESSMENT: Gangrene, left lower extremity. PLAN: Formal amputation closure. BKA tomorrow. Questions answered. The patient ambulates poorly, shuffles, probably is not a candidate for a prosthesis, but would benefit from rehab and have asked their evaluation to consider rehab transfer, strengthening, mobility, transfers, mid week. Job ID: [id number]
[2019-12-28] MEDS: Atorvastatin Calcium 40 MG TAB PO SCH (21:08)
[2019-12-28] MEDS: Carvedilol 6.25 MG TAB PO SCH (21:08)
[2019-12-28] MEDS: Gabapentin 100 MG CAP PO SCH (21:08)
[2019-12-28] MEDS: Insulin Glargine 10 UNITS in Pre-Filled Syringe 1 EACH SC SCH (21:08)
[2019-12-29] MEDS: Piperacillin/Tazobactam 2.25 GM in Sodium Chloride 0.9% 100 ML IVPB SCH ×4 (00:12→22:48)
[2019-12-29] MEDS: Sodium Chloride 0.9% 1,000 ML IV SCH ×3 (01:48→23:06)
[2019-12-29 03:43] LABS: #Basophils 0.1 thou/uL (0.0-0.2); #Eosinphils 0.3 thou/uL (0.0-0.7); #Lymphocytes 4.4 thou/uL (1.20-3.40); #Neutrophils 4.6 thou/uL (1.40-6.50); %Basophils 0.8 % (0.0-1.0); %Eosinophils 2.8 % (0.0-10.0); %Lymphocytes 42.4 % (21.0-51.0); %Monocytes 9.6 % (0.0-10.0); %Neutrophils 44.4 % (42.0-75.0); Mean Corpuscular HGB CONC 34.3 g/dL (32.0-36.0); Mean Corpuscular Hemoglobin 29.7 pg (27.0-31.0); Mean Corpuscular Volume 86.4 fL (78.0-98.0); Mean Platelet Volume 6.6 fL (7.4-10.4); Platelet Count 346 thou/uL (130-400); RBC Distribution Width 11.7 % (11.5-14.5); Red Blood Cell (RBC) Count 3.36 mill/uL (4.70-6.10); White Blood Cell (WBC) Count 10.3 thou/uL (4.8-10.8)
[2019-12-29 04:00] LABS: Anion Gap 12 mmol/L (10-20); BUN (Urea Nitrogen) 28 mg/dL (8.4-25.7); Calc. Creatinine Clearance 72 mL/min (70-130); Calcium 7.2 mg/dL (7.8-10.44); Carbon Dioxide 21 mmol/L (23-31); Chloride 109 mmol/L (98-107); Estimated GFR-MDRD 45; Glucose 134 mg/dL (80-115); Potassium 3.5 mmol/L (3.5-5.1); Sodium 138 mmol/L (136-145)
[2019-12-29] MEDS: traMADol HCl 50 MG TAB PO PRN (04:22)
[2019-12-29] MEDS: Fluticasone Propionate Nasal Spray 16 gm Bottle NASAL SCH ×3 (06:24→23:06)
[2019-12-29] MEDS ORDERED: Vancomycin 1.5 GRAM/300 ML BAG ONE (07:14)
[2019-12-29] MEDS ORDERED: Midazolam HCl 2 mg/2 ml Vial ONE ×2 (07:43→07:47)
[2019-12-29] MEDS ORDERED: Fentanyl 100 MCG/2 ML VIAL ONE ×2 (07:43→07:47)
[2019-12-29] MEDS ORDERED: Zolpidem Tartrate 5 MG TAB PO PRN (10:18)
[2019-12-29] MEDS ORDERED: diphenhydrAMINE 25 MG CAP PO PRN (10:18)
[2019-12-29] MEDS ORDERED: Promethazine HCl 25 MG/ML VIAL IM PRN ×2 (10:18)
[2019-12-29] MEDS ORDERED: PACU-Morphine 4MG/ML VIAL SLOW IVP PRN (10:18)
[2019-12-29] MEDS ORDERED: Naloxone HCl 0.4 mg/ml Vial IV PRN (10:18)
[2019-12-29] MEDS ORDERED: Ondansetron HCl/PF 4 MG/2 ML Vial IVP PRN (10:18)
[2019-12-29] MEDS ORDERED: Ondansetron PF 4 MG/2 ML Vial IVP PRN (10:18)
[2019-12-29] MEDS ORDERED: HYDROmorphone 2 MG/ML VIAL SLOW IVP PRN (10:18)
[2019-12-29] MEDS ORDERED: diphenhydrAMINE 50 MG/ML VIAL IM PRN (10:18)
[2019-12-29] MEDS ORDERED: fentaNYL Citrate/PF 2,000 MCG in Sodium Chloride 0.9% 60 ML IV PRN (10:18)
[2019-12-29] MEDS ORDERED: Promethazine HCl 25 MG/ML VIAL SLOW IVP PRN (10:18)
[2019-12-29] MEDS ORDERED: diphenhydrAMINE 50 MG/ML VIAL IVP PRN (10:18)
[2019-12-29] MEDS ORDERED: Communication Order-Pharmacy FS SCH (10:30)
--- NOTE | 2019-12-29 10:34 | OP ---
DATE OF PROCEDURE: 12/29/2019 PREOPERATIVE DIAGNOSES: Poorly controlled diabetes, hemoglobin A1c of 14, peripheral arterial disease, diabetic gangrene, gas gangrene of left foot, status post guillotine amputation. POSTOPERATIVE DIAGNOSES: Poorly controlled diabetes, hemoglobin A1c of 14, peripheral arterial disease, diabetic gangrene, gas gangrene of left foot, status post guillotine amputation. PROCEDURE PERFORMED: Left below-knee amputation closure. ANESTHESIA: Regional and general. ESTIMATED BLOOD LOSS: 150 mL. DESCRIPTION OF PROCEDURE: The patient was taken to the operating room, where under single-shot regional anesthesia and general anesthesia, left lower extremity was prepared with Betadine and draped in routine fashion. Incision was made for a long posterior flap below-knee amputation and carried down to skin subcutaneous tissue, fascia, dividing muscle with cautery and vascular bundles between clamps and ligated with 2-0 silk ties. Tibia cleared the periosteum proximally, transected with a Gigli saw, bevelling the anterior edge cephalad, smoothing the edges with a rasp. Fibula cut an inch above the cut edge of the tibia. Wound irrigated. Hemostasis obtained with cautery and 2-0 Vicryl. Fascia approximated with 2-0 Vicryl, skin with edgardo. Sterile dressing applied. Job ID: [id number]
--- NOTE | 2019-12-29 13:40 | PDOC.HOSPP ---
- Subjective Encounter Date: 12/29/19 Subjective: No new events overnight. - Objective Vital Signs & Weight: Vital Signs (12 hours) Temp 12/29/19 03:54 97.6 F Weight Admit Weight 233 lb 8 oz Weight 233 lb 8 oz Most Recent Monitor Data Heart Rate from ECG 73 NIBP 161/80 NIBP BP-Mean 107 Respiration from ECG 14 SpO2 93 I&O: 12/28/19 12/29/19 12/30/19 06:59 06:59 06:59 Intake Total 2840 3310 Output Total 1300 Balance 2840 2009 Result Diagrams: 12/29/19 03:30 12/29/19 03:30 Additional Labs: Accuchecks 12/29/19 12/29/19 12/28/19 12:36 06:13 20:33 POC Glucose 135 H 115 H 115 H 12/28/19 16:43 POC Glucose 129 H Hospitalist ROS - Medication Medications: Active Medications Generic Name Dose Route Start Last Admin Trade Name Freq PRN Reason Stop Dose Admin Acetaminophen 1,000 mg 12/25/19 19:08 12/25/19 21:42 Acetaminophen 500 Mg Tab PO 1,000 mg Q6H PRN Administration Moderate to Severe Pain (6-10) Aspirin 81 mg 12/26/19 09:00 12/28/19 07:49 Aspirin Chewable 81 Mg Tab PO 81 mg DAILY MASSIEL Administration Atorvastatin Calcium 40 mg 12/25/19 21:00 12/28/19 21:08 Atorvastatin Calcium 40 Mg Tab PO 40 mg HS MASSIEL Administration Carvedilol 6.25 mg 12/25/19 21:00 12/28/19 21:08 Carvedilol 6.25 Mg Tab PO 6.25 mg HS MASSIEL Administration Clopidogrel Bisulfate 75 mg 12/27/19 09:00 12/28/19 07:51 Clopidogrel Bisulfate 75 Mg Tab PO 75 mg DAILY MASSIEL Administration Enoxaparin Sodium 30 mg 12/25/19 09:00 12/28/19 07:51 Enoxaparin Sodium 30 Mg/0.3 Ml Syringe SC 30 mg 0900 MASSIEL Administration Famotidine 20 mg 12/24/19 21:00 12/28/19 21:07 Famotidine 20 Mg Tab PO 20 mg BID MASSIEL Administration Gabapentin 100 mg 12/25/19 21:00 12/28/19 21:08 Gabapentin 100 Mg Cap PO 100 mg HS MASSIEL Administration Gabapentin 300 mg 10/15/20 21:00 12/28/19 21:07 Gabapentin 300 Mg Cap PO 300 mg TID MASSIEL Administration Sodium Chloride 1,000 mls @ 75 mls/hr 12/25/19 12:42 12/29/19 01:48 Normal Saline 0.9% IV Not Given .[id number] MASSIEL Vancomycin HCl 1.5 gm/ Device 300 mls @ 200 mls/hr 12/27/19 09:00 12/28/19 07:52 IVPB 12/30/19 08:00 300 mls 0900 MASSIEL Administration Piperacillin Sod/Tazobactam 100 mls @ 200 mls/hr 12/26/19 16:00 12/29/19 13:31 Sod 2.25 gm/ Sodium Chloride IVPB 12/30/19 08:00 Not Given 0800,1600,2359 MASSIEL Insulin Glargine 40 units/ 0.4 mls @ 0 mls/hr 12/27/19 09:00 12/28/19 07:52 Miscellaneous Medication SC 0.4 mls QAM MASSIEL Administration Insulin Glargine 10 units/ 0.1 mls @ 0 mls/hr 12/28/19 21:00 12/28/19 21:08 Miscellaneous Medication SC 0.1 mls HS MASSIEL Administration Insulin Human Lispro 0 units 12/24/19 16:41 12/28/19 11:58 Humalog 300 Units/3 Ml Vial SC 6 unit .AGGRESSIVE SLIDING PRN Administration Aggressive Correctional Scale Insulin Human Lispro 0 units 12/25/19 20:33 12/27/19 21:04 Humalog 300 Units/3 Ml Vial SC 4 unit .BEDTIME SLIDING SC PRN Administration Bedtime Correctional Scale Sertraline HCl 25 mg 12/25/19 21:00 12/28/19 21:07 Sertraline Hcl 25 Mg Tab PO 25 mg BID MASSIEL Administration Sodium Chloride 10 ml 12/25/19 09:00 12/28/19 21:09 Flush - Normal Saline 10 Ml Syringe IVF 10 ml Q12HR MASSIEL Administration Hosp A/P - Plan This is a pleasant 64 years old gentleman who has significant past medical history of uncontrolled hypertension, CAD with history of CABG, who presented to the ED with 1-2 weeks history of generalized weakness, and left foot pain. Sepsis, present on admission - secondary to left foot infection --Patient is currently hemodynamically stable. --Continue broad-spectrum IV antibiotic with Zosyn, and vancomycin. Pharmacy is dosing vanc --Initial culture showing growth of Streptococcus agalactiae sensitive to current antibiotics. Left diabetic foot ulcer with acute cellulitis - concerning for possible osteomyelitis --s/p left leg guillotine amputation above ankle --Continue IV antibiotics. Plan for below-knee amputation today. Diabetes type 2, uncontrolled with hyperglycemia, A1C >14 Sugar levels are uncontrolled. Continue Lantus 40 units in the morning and add 10 units at night. . CAD with history of CABG --Currently is no chest pain. Resumed home meds Cough with history of Covid exposure --Since patient has had fevers on admission, and history of Covid exposure. Will keep patient in isolation, while waiting for Covid PCR - pending --CXR reviewed, unremarkable TOSHIA on CKD3 --suspect Cr probably at baseline --Monitor, avoid nephrotoxic agent DVT ppx: Lovenox GI ppx: Pepcid Code Status: Full code Anticipated Dispo: Home when medically stable
[2019-12-29] MEDS: Famotidine 20 MG TAB PO SCH ×3 (14:15→19:53)
[2019-12-29] MEDS: Aspirin Chewable 81 MG TAB PO SCH (14:15)
[2019-12-29] MEDS ORDERED: EPHEDRINE 25 MG/5 ML SYRINGE ONE (14:16)
[2019-12-29] MEDS: Insulin Glargine 40 UNITS in Pre-Filled Syringe SC SCH (14:16)
[2019-12-29] MEDS ORDERED: Lidocaine 1% PF 5 ML VIAL ONE (14:16)
[2019-12-29] MEDS ORDERED: Ondansetron PF 4 MG/2 ML Vial ONE (14:16)
[2019-12-29] MEDS ORDERED: PROPOFOL 200 MG/20 ML VIAL ONE (14:16)
[2019-12-29] MEDS: Gabapentin 300 MG CAP PO SCH ×3 (14:16→19:51)
[2019-12-29] MEDS ORDERED: Bupivacaine HCl 0.5%/Epinephrine 1:200,000/PF 30 ml Vial ONE (14:16)
[2019-12-29] MEDS ORDERED: PHENYLEPHRINE-NS 100 MCG/ML 10 ML SYRINGE ONE (14:16)
[2019-12-29] MEDS: Clopidogrel Bisulfate 75 MG TAB PO SCH (15:16)
[2019-12-29] MEDS: Enoxaparin Sodium 30 MG/0.3 ML SYRINGE SC SCH (15:16)
[2019-12-29] MEDS: HumaLOG 300 UNITS/3 ML VIAL SC PRN (15:29)
[2019-12-29] MEDS: Vancomycin 1.5 GRAM/300 ML BAG 1.5 GM in Premix Bag 1 BAG IVPB SCH (16:57)
[2019-12-29] MEDS ORDERED: Vancomycin 1.5 GRAM/300 ML BAG 1.5 GM in Premix Bag 1 BAG IVPB SCH (17:00)
[2019-12-29] MEDS: Acetaminophen 500 MG TAB PO PRN (17:00)
[2019-12-29] MEDS: Carvedilol 6.25 MG TAB PO SCH (19:52)
[2019-12-29] MEDS: Gabapentin 100 MG CAP PO SCH (19:54)
[2019-12-29] MEDS: Insulin Glargine 10 UNITS in Pre-Filled Syringe 1 EACH SC SCH (22:49)
[2019-12-29] MEDS: Atorvastatin Calcium 40 MG TAB PO SCH (22:54)
[2019-12-30 05:37] LABS: #Basophils 0.1 thou/uL (0.0-0.2); #Eosinphils 0.2 thou/uL (0.0-0.7); #Monocytes 1.8 thou/uL (0.11-0.59); #Neutrophils 6.8 thou/uL (1.40-6.50); %Basophils 0.5 % (0.0-1.0); %Eosinophils 1.6 % (0.0-10.0); %Monocytes 14.1 % (0.0-10.0); %Neutrophils 52.7 % (42.0-75.0); Hemoglobin 7.7 g/dL (14.0-18.0); Mean Corpuscular HGB CONC 33.1 g/dL (32.0-36.0); Mean Corpuscular Hemoglobin 29.1 pg (27.0-31.0); Mean Corpuscular Volume 87.9 fL (78.0-98.0); Mean Platelet Volume 6.8 fL (7.4-10.4); Platelet Count 361 thou/uL (130-400); Red Blood Cell (RBC) Count 2.65 mill/uL (4.70-6.10); White Blood Cell (WBC) Count 12.9 thou/uL (4.8-10.8)
[2019-12-30 05:59] LABS: Anion Gap 13 mmol/L (10-20); BUN (Urea Nitrogen) 30 mg/dL (8.4-25.7); Calc. Creatinine Clearance 53 mL/min (70-130); Calcium 6.5 mg/dL (7.8-10.44); Carbon Dioxide 18 mmol/L (23-31); Chloride 111 mmol/L (98-107); Estimated GFR-MDRD 32; Glucose 276 mg/dL (80-115); Potassium 3.8 mmol/L (3.5-5.1); Sodium 138 mmol/L (136-145)
[2019-12-30] MEDS: HumaLOG 300 UNITS/3 ML VIAL SC PRN ×2 (06:16→13:02)
[2019-12-30] MEDS: Enoxaparin Sodium 30 MG/0.3 ML SYRINGE SC SCH (09:00)
[2019-12-30] MEDS: Piperacillin/Tazobactam 2.25 GM in Sodium Chloride 0.9% 100 ML IVPB SCH (09:00)
[2019-12-30] MEDS: Insulin Glargine 40 UNITS in Pre-Filled Syringe SC SCH (09:00)
[2019-12-30] MEDS: Aspirin Chewable 81 MG TAB PO SCH (09:01)
[2019-12-30] MEDS: Gabapentin 300 MG CAP PO SCH ×3 (09:02→20:57)
[2019-12-30] MEDS: Fluticasone Propionate Nasal Spray 16 gm Bottle NASAL SCH ×2 (09:03→20:58)
[2019-12-30] MEDS: Clopidogrel Bisulfate 75 MG TAB PO SCH (09:04)
[2019-12-30] MEDS: Sodium Chloride 0.9% 1,000 ML IV SCH (11:17)
--- NOTE | 2019-12-30 14:56 | PDOC.HOSPP ---
- Subjective Encounter Date: 12/30/19 Subjective: The patient's pain is controlled today. Denies chest pain, shortness of breath, palpitations, or dizziness. - Objective Vital Signs & Weight: Vital Signs (12 hours) Temp Pulse Pulse Resp BP BP Pulse Ox 12/30/19 14:03 99.1 F 84 16 144/73 H 98 12/30/19 10:10 99.1 F 86 14 133/77 12/30/19 09:56 98 F 89 16 118/70 97 12/30/19 08:15 96 12/30/19 07:24 98.3 F 87 18 126/70 91 L 12/30/19 03:09 97.7 F 82 16 124/67 95 Weight Admit Weight 233 lb 8 oz Weight 233 lb 8 oz Most Recent Monitor Data Heart Rate from ECG 73 NIBP 161/80 NIBP BP-Mean 107 Respiration from ECG 14 SpO2 93 I&O: 12/29/19 12/30/19 12/31/19 06:59 06:59 06:59 Intake Total 3310 2074 590 Output Total 1300 Balance 2009 Result Diagrams: 12/30/19 05:20 12/30/19 05:20 Additional Labs: Accuchecks 12/30/19 12/29/19 12/29/19 11:26 21:00 15:24 POC Glucose 155 H 287 H 177 H Hospitalist ROS - Medication Medications: Active Medications Generic Name Dose Route Start Last Admin Trade Name Freq PRN Reason Stop Dose Admin Acetaminophen 1,000 mg 12/25/19 19:08 12/29/19 17:00 Acetaminophen 500 Mg Tab PO 1,000 mg Q6H PRN Administration Moderate to Severe Pain (6-10) Aspirin 81 mg 12/26/19 09:00 12/30/19 09:01 Aspirin Chewable 81 Mg Tab PO 81 mg DAILY MASSIEL Administration Atorvastatin Calcium 40 mg 12/25/19 21:00 12/29/19 22:54 Atorvastatin Calcium 40 Mg Tab PO Not Given HS MASSIEL Carvedilol 6.25 mg 12/25/19 21:00 12/29/19 19:52 Carvedilol 6.25 Mg Tab PO 6.25 mg HS MASSIEL Administration Clopidogrel Bisulfate 75 mg 12/27/19 09:00 12/30/19 09:04 Clopidogrel Bisulfate 75 Mg Tab PO 75 mg DAILY MASSIEL Administration Enoxaparin Sodium 30 mg 12/25/19 09:00 12/30/19 09:00 Enoxaparin Sodium 30 Mg/0.3 Ml Syringe SC 30 mg 0900 MASSIEL Administration Famotidine 20 mg 12/24/19 21:00 12/29/19 19:53 Famotidine 20 Mg Tab PO 20 mg BID MASSIEL Administration Fluticasone Propionate 0 gm 12/29/19 09:00 12/30/19 09:03 Fluticasone Propionate Nasal [place] 16 Gm Bottle NASAL 1 spr BID MASSIEL Administration Gabapentin 100 mg 12/25/19 21:00 12/29/19 19:54 Gabapentin 100 Mg Cap PO 100 mg HS MASSIEL Administration Gabapentin 300 mg 12/25/19 21:00 12/30/19 09:02 Gabapentin 300 Mg Cap PO 300 mg TID MASSIEL Administration Sodium Chloride 1,000 mls @ 75 mls/hr 12/25/19 12:42 12/30/19 11:17 Normal Saline 0.9% IV Not Given .[id number] MASSIEL Insulin Glargine 40 units/ 0.4 mls @ 0 mls/hr 12/27/19 09:00 12/30/19 09:00 Miscellaneous Medication SC 0.4 mls QAM MASSIEL Administration Insulin Glargine 10 units/ 0.1 mls @ 0 mls/hr 12/28/19 21:00 12/29/19 22:49 Miscellaneous Medication SC 0.1 mls HS MASSIEL Administration Insulin Human Lispro 0 units 12/24/19 16:41 12/30/19 13:02 Humalog 300 Units/3 Ml Vial SC 3 unit .AGGRESSIVE SLIDING PRN Administration Aggressive Correctional Scale Insulin Human Lispro 0 units 12/25/19 20:33 12/27/19 21:04 Humalog 300 Units/3 Ml Vial SC 4 unit .BEDTIME SLIDING SC PRN Administration Bedtime Correctional Scale Sertraline HCl 25 mg 12/25/19 21:00 12/30/19 09:02 Sertraline Hcl 25 Mg Tab PO 25 mg BID MASSIEL Administration Sodium Chloride 10 ml 12/25/19 09:00 12/30/19 09:03 Flush - Normal Saline 10 Ml Syringe IVF 10 ml Q12HR MASSIEL Administration - Exam General Appearance: awake alert ENT: normocephalic atraumatic Neck: supple, no JVD Heart: RRR Respiratory: normal chest expansion, no tachypnea Extremities: no cyanosis, no clubbing Neurological: cranial nerve grossly intact Hosp A/P - Plan This is a pleasant 64 years old gentleman who has significant past medical history of uncontrolled hypertension, CAD with history of CABG, who presented to the ED with 1-2 weeks history of generalized weakness, and left foot pain. Sepsis, present on admission - secondary to left foot infection --Patient is currently hemodynamically stable. --Continue broad-spectrum IV antibiotic with Zosyn, and vancomycin. Pharmacy is dosing vanc --Initial culture showing growth of Streptococcus agalactiae sensitive to current antibiotics. Left diabetic foot ulcer with acute cellulitis - concerning for possible osteomyelitis --s/p left leg guillotine amputation above ankle --Continue IV antibiotics. --Status post left BKA. --PT and OT evaluation. Postoperative anemia --Transfuse 1 unit of packed RBCs. --Check CBC in the morning. Diabetes type 2, uncontrolled with hyperglycemia, A1C >14 Sugar levels are uncontrolled. Continue Lantus 40 units in the morning and add 10 units at night. . CAD with history of CABG --Currently is no chest pain. Resumed home meds Cough with history of Covid exposure --Since patient has had fevers on admission, and history of Covid exposure. Will keep patient in isolation, while waiting for Covid PCR - pending --CXR reviewed, unremarkable TOSHIA on CKD3 --suspect Cr probably at baseline --Monitor, avoid nephrotoxic agent DVT ppx: Lovenox GI ppx: Pepcid Code Status: Full code Anticipated Dispo: Home when medically stable
--- NOTE | 2019-12-30 15:21 | PRG ---
DATE OF SERVICE: 12/30/2019 SUBJECTIVE: Khanh Ross is doing well today. Hemoglobin is 9.4. He has been given 1 unit of blood. The patient states that he feels pretty well. OBJECTIVE: VITAL SIGNS: Temperature 99.1 degrees, respirations 16, blood pressure 144/73. LUNGS: Clear to auscultation. CARDIAC: Regular rate and rhythm without murmur or gallop. ABDOMEN: Soft, nontender. Dressing is dry. ASSESSMENT AND PLAN: Below-knee amputation. Plan to remove dressing tomorrow. Can transfer to rehab at any time. Physical Therapy is working with him on transfers. We would recommend after dressing is removed, washing the stump with soap and water and apply antibiotic ointment, Telfa, and stump regulatory specialist. Job ID: [id number]
[2019-12-30] MEDS: Famotidine 20 MG TAB PO SCH (20:57)
[2019-12-30] MEDS: Gabapentin 100 MG CAP PO SCH (20:57)
[2019-12-30] MEDS: Atorvastatin Calcium 40 MG TAB PO SCH (20:57)
[2019-12-30] MEDS: Carvedilol 6.25 MG TAB PO SCH (20:58)
[2019-12-30] MEDS: Insulin Glargine 10 UNITS in Pre-Filled Syringe 1 EACH SC SCH (20:58)
[2019-12-31] MEDS: Sodium Chloride 0.9% 1,000 ML IV SCH (01:42)
[2019-12-31] MEDS: Clopidogrel Bisulfate 75 MG TAB PO SCH (09:02)
[2019-12-31] MEDS: Gabapentin 300 MG CAP PO SCH ×3 (09:02→20:13)
[2019-12-31] MEDS: Fluticasone Propionate Nasal Spray 16 gm Bottle NASAL SCH ×2 (09:02→20:12)
[2019-12-31] MEDS: Aspirin Chewable 81 MG TAB PO SCH (09:02)
[2019-12-31] MEDS: Acetaminophen 500 MG TAB PO PRN ×2 (09:02→15:19)
[2019-12-31] MEDS: Famotidine 20 MG TAB PO SCH ×2 (09:02→20:13)
[2019-12-31] MEDS: Enoxaparin Sodium 30 MG/0.3 ML SYRINGE SC SCH (09:18)
[2019-12-31] MEDS ORDERED: HYDROcodone/Acetaminophen 5/325 mg Tablet PO PRN (09:34)
[2019-12-31 09:39] LABS: #Basophils 0.1 thou/uL (0.0-0.2); #Eosinphils 0.2 thou/uL (0.0-0.7); #Lymphocytes 3.8 thou/uL (1.20-3.40); #Monocytes 1.7 thou/uL (0.11-0.59); #Neutrophils 7.6 thou/uL (1.40-6.50); %Basophils 0.4 % (0.0-1.0); %Eosinophils 1.7 % (0.0-10.0); %Lymphocytes 28.3 % (21.0-51.0); %Monocytes 12.5 % (0.0-10.0); %Neutrophils 57.1 % (42.0-75.0); Hemoglobin 9.4 g/dL (14.0-18.0); Mean Corpuscular HGB CONC 32.4 g/dL (32.0-36.0); Mean Corpuscular Hemoglobin 29.2 pg (27.0-31.0); Mean Corpuscular Volume 90.2 fL (78.0-98.0); Mean Platelet Volume 6.6 fL (7.4-10.4); Platelet Count 374 thou/uL (130-400); RBC Distribution Width 12.5 % (11.5-14.5); Red Blood Cell (RBC) Count 3.22 mill/uL (4.70-6.10); White Blood Cell (WBC) Count 13.3 thou/uL (4.8-10.8)
[2019-12-31] MEDS: Insulin Glargine 40 UNITS in Pre-Filled Syringe SC SCH (09:43)
--- NOTE | 2019-12-31 09:50 | PRG ---
DATE OF SERVICE: 12/31/2019 SUBJECTIVE: Khanh Ross is doing well today. He feels much better after transfusion of blood. Although his vital signs were stable and his heart rate was normal yesterday, he felt very weak. After the 1 unit of blood transfusion for hemoglobin of 7.4, he feels much better. As a baseline at home, the patient shovels and has poor balance and tendency to fall, he probably will. He may not be a good candidate for a prosthesis up the road, but hopefully he will benefit from therapy to learn how to transfer or mobilize. OBJECTIVE: VITAL SIGNS: Temperature 98.6 degrees, pulse 79, blood pressure 143/76. LUNGS: Clear to auscultation. CARDIAC: Regular rate and rhythm. No murmur or gallop. ABDOMEN: Soft. EXTREMITIES: Left BKA stump well healed. No wound problems. LABORATORY DATA: Laboratories this morning are pending. ASSESSMENT AND PLAN: Status post [id number]. Plan, washing the stump daily with soap and water and apply an antibiotic ointment and a stump it systems analyst. The patient will be transferred to rehab at any time. Antibiotics can be discontinued. I will see him in the office in 2 to 3 weeks to remove his edgardo. I will see him this hospitalization as indicated or requested. Job ID: [id number]
[2019-12-31 09:56] LABS: Anion Gap 15 mmol/L (10-20); BUN (Urea Nitrogen) 22 mg/dL (8.4-25.7); Calc. Creatinine Clearance 86 mL/min (70-130); Calcium 6.9 mg/dL (7.8-10.44); Carbon Dioxide 18 mmol/L (23-31); Chloride 113 mmol/L (98-107); Estimated GFR-MDRD 55; Glucose 105 mg/dL (80-115); Potassium 3.6 mmol/L (3.5-5.1); Sodium 142 mmol/L (136-145)
--- NOTE | 2019-12-31 17:18 | PDOC.HOSPP ---
- Subjective Encounter Date: 12/31/19 Subjective: The patient had no new complaints this morning. - Objective Vital Signs & Weight: Vital Signs (12 hours) Temp Pulse Resp BP Pulse Ox 12/31/19 16:05 95 12/31/19 15:44 98.5 F 78 18 149/74 H 98 12/31/19 11:40 98 F 79 18 110/60 94 L 12/31/19 08:55 99 12/31/19 07:44 98.6 F 79 16 143/76 H 93 L Weight Admit Weight 233 lb 8 oz Weight 233 lb 8 oz Most Recent Monitor Data Heart Rate from ECG 73 NIBP 161/80 NIBP BP-Mean 107 Respiration from ECG 14 SpO2 93 I&O: 12/30/19 12/31/19 01/01/20 06:59 06:59 06:59 Intake Total 2074 3110 400 Output Total 1950 Balance 2074 1160 400 Result Diagrams: 12/31/19 09:16 12/31/19 09:16 Additional Labs: Accuchecks 12/31/19 12/31/19 12/31/19 15:44 11:41 05:51 POC Glucose 128 H 136 H 87 12/30/19 12/30/19 23:19 20:22 POC Glucose 102 H 69 L Hospitalist ROS - Medication Medications: Active Medications Generic Name Dose Route Start Last Admin Trade Name Freq PRN Reason Stop Dose Admin Acetaminophen 1,000 mg 12/25/19 19:08 12/31/19 15:19 Acetaminophen 500 Mg Tab PO 1,000 mg Q6H PRN Administration Moderate to Severe Pain (6-10) Aspirin 81 mg 12/26/19 09:00 12/31/19 09:02 Aspirin Chewable 81 Mg Tab PO 81 mg DAILY MASSIEL Administration Atorvastatin Calcium 40 mg 12/25/19 21:00 12/30/19 20:57 Atorvastatin Calcium 40 Mg Tab PO 40 mg HS MASSIEL Administration Carvedilol 6.25 mg 12/25/19 21:00 12/30/19 20:58 Carvedilol 6.25 Mg Tab PO 6.25 mg HS MASSIEL Administration Clopidogrel Bisulfate 75 mg 12/27/19 09:00 12/31/19 09:02 Clopidogrel Bisulfate 75 Mg Tab PO 75 mg DAILY MASSIEL Administration Enoxaparin Sodium 30 mg 12/25/19 09:00 12/31/19 09:18 Enoxaparin Sodium 30 Mg/0.3 Ml Syringe SC 30 mg 0900 MASSIEL Administration Famotidine 20 mg 12/24/19 21:00 12/31/19 09:02 Famotidine 20 Mg Tab PO 20 mg BID MASSIEL Administration Fluticasone Propionate 0 gm 12/29/19 09:00 12/31/19 09:02 Fluticasone Propionate Nasal [place] 16 Gm Bottle NASAL 1 spr BID MASSIEL Administration Gabapentin 100 mg 12/25/19 21:00 12/30/19 20:57 Gabapentin 100 Mg Cap PO 100 mg HS MASSIEL Administration Gabapentin 300 mg 12/25/19 21:00 12/31/19 15:19 Gabapentin 300 Mg Cap PO 300 mg TID MASSIEL Administration Insulin Glargine 40 units/ 0.4 mls @ 0 mls/hr 12/27/19 09:00 12/31/19 09:43 Miscellaneous Medication SC Not Given QAM MASSIEL Insulin Glargine 10 units/ 0.1 mls @ 0 mls/hr 12/28/19 21:00 12/30/19 20:58 Miscellaneous Medication SC Not Given HS MASSIEL Insulin Human Lispro 0 units 12/24/19 16:41 12/30/19 13:02 Humalog 300 Units/3 Ml Vial SC 3 unit .AGGRESSIVE SLIDING PRN Administration Aggressive Correctional Scale Insulin Human Lispro 0 units 12/25/19 20:33 12/27/19 21:04 Humalog 300 Units/3 Ml Vial SC 4 unit .BEDTIME SLIDING SC PRN Administration Bedtime Correctional Scale Sertraline HCl 25 mg 12/25/19 21:00 12/31/19 09:02 Sertraline Hcl 25 Mg Tab PO 25 mg BID MASSIEL Administration Sodium Chloride 10 ml 12/25/19 09:00 12/31/19 09:05 Flush - Normal Saline 10 Ml Syringe IVF 10 ml Q12HR MASSIEL Administration - Exam General Appearance: awake alert ENT: normocephalic atraumatic Neck: supple, no JVD Heart: RRR, no murmur, no gallops, no rubs Respiratory: CTAB, no wheezes, no rales, no ronchi Hosp A/P - Plan This is a pleasant 64 years old gentleman who has significant past medical history of uncontrolled hypertension, CAD with history of CABG, who presented to the ED with 1-2 weeks history of generalized weakness, and left foot pain. Sepsis, present on admission - secondary to left foot infection --Patient is currently hemodynamically stable. --We will discontinue IV antibiotics since the patient has underwent successful BKA. --Initial culture showing growth of Streptococcus agalactiae sensitive to current antibiotics. Left diabetic foot ulcer with acute cellulitis - concerning for possible osteomyelitis --s/p left leg guillotine amputation above ankle --Continue IV antibiotics. --Status post left BKA. --Case management consulted for postacute placement Postoperative anemia --Transfuse 1 unit of packed RBCs. --Check CBC in the morning. Diabetes type 2, uncontrolled with hyperglycemia, A1C >14 Sugar levels are uncontrolled. Continue Lantus 40 units in the morning and add 10 units at night. . CAD with history of CABG --Currently is no chest pain. Resumed home meds Cough with history of Covid exposure --Since patient has had fevers on admission, and history of Covid exposure. Will keep patient in isolation, while waiting for Covid PCR - pending --CXR reviewed, unremarkable TOSHIA on CKD3 --suspect Cr probably at baseline --Monitor, avoid nephrotoxic agent DVT ppx: Lovenox GI ppx: Pepcid Code Status: Full code Anticipated Dispo: Home when medically stable
[2019-12-31] MEDS: Gabapentin 100 MG CAP PO SCH (20:13)
[2019-12-31] MEDS: Atorvastatin Calcium 40 MG TAB PO SCH (20:13)
[2019-12-31] MEDS: Carvedilol 6.25 MG TAB PO SCH (20:13)
[2019-12-31] MEDS: HYDROcodone/Acetaminophen 5/325 mg Tablet PO PRN (20:16)
[2019-12-31] MEDS: Insulin Glargine 10 UNITS in Pre-Filled Syringe 1 EACH SC SCH (21:32)
[2020-01-01] MEDS: HYDROcodone/Acetaminophen 5/325 mg Tablet PO PRN ×3 (03:21→12:09)
[2020-01-01] MEDS: Aspirin Chewable 81 MG TAB PO SCH (08:07)
[2020-01-01] MEDS: Gabapentin 300 MG CAP PO SCH ×2 (08:07→14:50)
[2020-01-01] MEDS: Famotidine 20 MG TAB PO SCH (08:07)
[2020-01-01] MEDS: Clopidogrel Bisulfate 75 MG TAB PO SCH (08:07)
[2020-01-01] MEDS: Fluticasone Propionate Nasal Spray 16 gm Bottle NASAL SCH (08:08)
[2020-01-01] MEDS: Enoxaparin Sodium 30 MG/0.3 ML SYRINGE SC SCH (08:08)
[2020-01-01] MEDS: Insulin Glargine 40 UNITS in Pre-Filled Syringe SC SCH (08:08)
[2020-01-01] MEDS ORDERED: Polyethylene Glycol 3350 17 GM Packet PO SCH (09:00)
[2020-01-01] MEDS ORDERED: Triple Antibiotic Oint 1 GM Packet TOP SCH (09:00)
[2020-01-01] MEDS ORDERED: traMADol HCl 50 MG TAB PO PRN ×2 (10:51)
[2020-01-01] MEDS: HumaLOG 300 UNITS/3 ML VIAL SC PRN (10:59)
[2020-01-01 18:37] VITALS: BP 145/75; TEMP 98.4
== END 2020-01-01 18:35 | disposition home or self-care (01) | DRG 853 ==
LOC: ERS 13:56 → IMCU/EMU 19:35 → SURG A 12-29 09:35 → SJJU 12-29 12:10
PROVIDERS: ADMIT Family Medicine; ATTEND Family Medicine
PROC: 8E0ZXY6 Isolation (ICD-10-PCS; 2019-12-24)
PROC: 0Y6J0Z3 Detachment at Left Lower Leg, Low, Open Approach (ICD-10-PCS; 2019-12-26)
PROC: 0Y6J0Z1 Detachment at Left Lower Leg, High, Open Approach (ICD-10-PCS; principal; 2019-12-29)
PROC: 30233N1 Transfusion of Nonautologous Red Blood Cells into Peripheral Vein, Percutaneous Approach (ICD-10-PCS; 2019-12-30)
DX: A40.1 Sepsis due to streptococcus, group B (principal); A48.0 Gas gangrene; M86.8X7 Other osteomyelitis, ankle and foot; L03.116 Cellulitis of left lower limb; N17.9 Acute kidney failure, unspecified; E11.52 Type 2 diabetes mellitus with diabetic peripheral angiopathy with gangrene; Z20.828 Contact with and (suspected) exposure to other viral communicable diseases; E11.621 Type 2 diabetes mellitus with foot ulcer; L97.529 Non-pressure chronic ulcer of other part of left foot with unspecified severity; E11.69 Type 2 diabetes mellitus with other specified complication; E11.628 Type 2 diabetes mellitus with other skin complications; N18.30 Chronic kidney disease, stage 3 unspecified; I10 Essential (primary) hypertension; E66.9 Obesity, unspecified; E11.65 Type 2 diabetes mellitus with hyperglycemia; R05 Cough; I25.10 Atherosclerotic heart disease of native coronary artery without angina pectoris; D64.9 Anemia, unspecified; Z95.1 Presence of aortocoronary bypass graft; Z90.49 Acquired absence of other specified parts of digestive tract; Z88.5 Allergy status to narcotic agent; Z68.36 Body mass index [BMI] 36.0-36.9, adult
CPT/HCPCS: 36415; 36416; 36430; 51701; 71045; 80048; 80053; 80202; 81003; 81015; 82010; 82553; 83036; 83605; 83690; 83880; 84484; 85025; 86850; 86900; 86901; 87040; 87077; 87086; 87149; 87186; 87635; 88305; 88307; 88311; 93005; 96361; 96365; 96366; 96367; J0692; J1650; J1815; J2250; J2405; J2543; J2704; J3010; J3370; J3490; J7030; P9016; U0003

== ENCOUNTER 2020-05-25 16:08 | Inpatient (IN) | payer MEDICARE ==
[~2020-05-25 16:08] MED LIST: Iopamidol-370 76% 500 ML 1 ML ONE
[2020-05-25] MEDS ORDERED: Aspirin Chewable 81 MG TAB ONE (16:52)
[2020-05-25 17:21] LABS: Hemoglobin 9.1 g/dL (14.0-18.0); Mean Corpuscular HGB CONC 32.3 g/dL (32.0-36.0); Mean Corpuscular Volume 86.6 fL (78.0-98.0); Mean Platelet Volume 7.6 fL (7.4-10.4); Platelet Count 211 thou/uL (130-400); RBC Distribution Width 14.1 % (11.5-14.5); Red Blood Cell (RBC) Count 3.24 mill/uL (4.70-6.10); White Blood Cell (WBC) Count 5.2 thou/uL (4.8-10.8)
[2020-05-25 17:24] LABS: Actual Bicarbonate (HCO3v) 22 mEq/L (22-28); Analyzer IN Cardio ER; Calcium, Ionized (venous) 0.96 mmol/L (1.16-1.32); Chloride (VBG) 110 mmol/L (98-106); Hemoglobin (Hb) 10.4 g/dL (13.1-17.2); Potassium (VBG) 3.94 mmol/L (3.70-5.30); Sodium 134.8 mmol/L (133-146); pH (venous) 7.55 (7.32-7.43)
[2020-05-25 17:41] LABS: ALT (SGPT) 18 U/L (8-55); AST (SGOT) 25 U/L (5-34); Albumin 3.2 g/dL (3.4-4.8); Alkaline Phosphatase 243 U/L (40-110); Anion Gap 15 mmol/L (10-20); BUN (Urea Nitrogen) 25 mg/dL (8.4-25.7); Bilirubin, Total 0.5 mg/dL (0.2-1.2); Calc. Creatinine Clearance 0 mL/min (70-130); Calcium 7.9 mg/dL (7.8-10.44); Carbon Dioxide 21 mmol/L (23-31); Chloride 109 mmol/L (98-107); Globulin 2.7 g/dL (2.4-3.5); Protein, Total 5.9 g/dL (5.8-8.1); Sodium 141 mmol/L (136-145)
[2020-05-25] MEDS ORDERED: cefTRIAXone\\ROCEPHIN 2 GM VIAL ONE (17:41)
[2020-05-25 17:45] LABS: Band 15 % (5-11); Lymphocytes 26 % (21-51); MDiff Complete? YES; Monocytes 13 % (0-10); Neutrophil 42 % (42-75); Platelet Morphology Comment Appears Adequate; RBC Morphology Normal; Reactive Lymphocytes 3 % (0-10)
[2020-05-25 17:51] LABS: Glucose 58 mg/dL (80-115)
[2020-05-25 17:55] LABS: CKMB 1.3 ng/mL (0-6.6)
[2020-05-25] MEDS ORDERED: VANCOMYCIN 2 GRAM/400 ML BAG 2 GM in Premix Bag 1 BAG IVPB SCH (18:15)
[2020-05-25 18:24] LABS: SARS-CoV-2 NAA Rapid Test DETECTED (NotDetected)
[2020-05-25] MEDS ORDERED: Dexamethasone 4 mg/ml Vial ONE (18:35)
[2020-05-25] MEDS ORDERED: Enoxaparin Sodium 30 MG/0.3 ML SYRINGE ONE (19:00)
[2020-05-25] MEDS ORDERED: Enoxaparin Sodium 100 MG/ML SYRINGE ONE (19:00)
[2020-05-25] MEDS ORDERED: Enoxaparin Sodium 40 MG/0.4 ML SYRINGE ONE (19:02)
[2020-05-25] MEDS ORDERED: Enoxaparin Sodium 60 MG/0.6 ML SYRINGE ONE (19:02)
[2020-05-25] MEDS ORDERED: Furosemide 40 MG/4 ML VIAL ONE (19:30)
[2020-05-25 19:36] LABS: Troponin I 0.046 ng/mL (< 0.028)
[2020-05-25] MEDS ORDERED: Acetaminophen 325 MG TAB PO PRN (20:54)
[2020-05-25] MEDS ORDERED: Ondansetron ODT 4 MG TAB PO PRN (20:54)
[2020-05-25] MEDS ORDERED: Calcium Carbonate 500 MG ChewTAB PO PRN (20:54)
[2020-05-25] MEDS ORDERED: Dextrose 5% in Water 1,000 ML IV PRN (20:54)
[2020-05-25 21:57] LABS: INR-International Normal Ratio 1.2; Prothrombin Time 15.7 sec (12.0-14.7)
[2020-05-25 21:58] LABS: PTT 55.2 sec (22.9-36.1)
[2020-05-25 22:17] LABS: Troponin I 0.059 ng/mL (< 0.028)
[2020-05-26] MEDS ORDERED: HumaLOG 300 UNITS/3 ML VIAL SC PRN ×2 (01:05)
[2020-05-26 01:25] LABS: Troponin I 0.066 ng/mL (< 0.028)
[2020-05-26] MEDS ORDERED: HYDROcodone/Acetaminophen 5/325 mg Tablet PO PRN (01:46)
[2020-05-26] MEDS: traMADol HCl 50 MG TAB PO PRN ×2 (03:14→16:05)
[2020-05-26 05:40] LABS: #Lymphocytes 0.7 thou/uL (1.20-3.40); #Monocytes 0.2 thou/uL (0.11-0.59); #Neutrophils 1.5 thou/uL (1.40-6.50); %Eosinophils 0.1 % (0.0-10.0); %Lymphocytes 27.6 % (21.0-51.0); %Monocytes 8.3 % (0.0-10.0); %Neutrophils 64.1 % (42.0-75.0); Hemoglobin 8.2 g/dL (14.0-18.0); Mean Corpuscular HGB CONC 33.1 g/dL (32.0-36.0); Mean Corpuscular Volume 87.5 fL (78.0-98.0); Mean Platelet Volume 7.7 fL (7.4-10.4); Platelet Count 174 thou/uL (130-400); RBC Distribution Width 13.8 % (11.5-14.5); Red Blood Cell (RBC) Count 2.82 mill/uL (4.70-6.10); White Blood Cell (WBC) Count 2.4 thou/uL (4.8-10.8)
[2020-05-26 05:58] LABS: Iron 13 ug/dL (65-175); Iron Binding Capacity, Total 179 mcg/dL (261-462)
[2020-05-26 06:00] LABS: ALT (SGPT) 25 U/L (8-55); AST (SGOT) 38 U/L (5-34); Albumin 2.7 g/dL (3.4-4.8); Alkaline Phosphatase 259 U/L (40-110); Anion Gap 17 mmol/L (10-20); BUN (Urea Nitrogen) 27 mg/dL (8.4-25.7); Bilirubin, Total 0.4 mg/dL (0.2-1.2); Calc. Creatinine Clearance 80 mL/min (70-130); Calcium 7.6 mg/dL (7.8-10.44); Carbon Dioxide 18 mmol/L (23-31); Chloride 107 mmol/L (98-107); Globulin 2.8 g/dL (2.4-3.5); Glucose 186 mg/dL (80-115); Potassium 4.1 mmol/L (3.5-5.1); Protein, Total 5.5 g/dL (5.8-8.1); Sodium 138 mmol/L (136-145)
[2020-05-26 06:02] LABS: Troponin I 0.048 ng/mL (< 0.028)
[2020-05-26] MEDS: HumaLOG 300 UNITS/3 ML VIAL SC PRN ×3 (06:31→17:26)
[2020-05-26] MEDS: Lisinopril 20 MG TAB PO SCH (08:46)
[2020-05-26] MEDS: Dexamethasone 4 MG TAB PO SCH (08:47)
[2020-05-26] MEDS: Aspirin Chewable 81 MG TAB PO SCH (08:47)
[2020-05-26] MEDS: Ascorbic Acid 500 mg Chewable Tablet PO SCH (08:47)
[2020-05-26] MEDS: Carvedilol 6.25 MG TAB PO SCH ×3 (08:48→20:11)
[2020-05-26] MEDS: Azelastine 137 MCG/Spray 30 ML NS SCH ×2 (08:48→20:10)
[2020-05-26] MEDS: Cholecalciferol (Vitamin D3) 400 UNITS TAB PO SCH (08:49)
[2020-05-26] MEDS: Fluticasone Propionate Nasal Spray 16 gm Bottle NASAL SCH ×2 (08:49→20:11)
[2020-05-26] MEDS: Clopidogrel Bisulfate 75 MG TAB PO SCH (08:49)
[2020-05-26] MEDS: Enoxaparin Sodium 40 MG/0.4 ML SYRINGE SC SCH (08:49)
[2020-05-26] MEDS: HumuLIN 70/30 (300 UNITS/3 ML VIAL) SC SCH ×2 (08:52→20:14)
[2020-05-26] MEDS: metFORMIN 500 MG TAB PO SCH ×2 (08:54→20:13)
[2020-05-26] MEDS: Potassium Chloride 8 MEQ TAB PO SCH (08:56)
[2020-05-26] MEDS: Niacin 500 MG TAB PO SCH ×2 (08:56→20:13)
[2020-05-26] MEDS: Zinc Sulfate 220 MG CAP PO SCH (08:57)
[2020-05-26] MEDS ORDERED: Dexamethasone 4 mg/ml Vial IM SCH ×2 (09:00)
[2020-05-26] MEDS ORDERED: Iron Sucrose Complex 200 MG in Sodium Chloride 0.9% 100 ML IVPB SCH (09:45)
[2020-05-26] MEDS ORDERED: Furosemide 40 MG/4 ML VIAL SLOW IVP SCH (09:45)
[2020-05-26] MEDS: Mometasone 100 MCG/Formoterol 5 MCG 120 PUFF INHALER INH SCH ×4 (10:30→17:24)
[2020-05-26 11:37] LABS: Iron 15 ug/dL (65-175); Iron Binding Capacity, Total 176 mcg/dL (261-462)
[2020-05-26] MEDS: Atorvastatin Calcium 40 MG TAB PO SCH (20:11)
[2020-05-26] MEDS: Gabapentin 100 MG CAP PO SCH (20:12)
[2020-05-26] MEDS ORDERED: BILBERRY FRUIT EXTRACT PO SCH (21:00)
[2020-05-27 07:48] LABS: #Lymphocytes 1.6 thou/uL (1.20-3.40); #Monocytes 0.6 thou/uL (0.11-0.59); %Basophils 0.2 % (0.0-1.0); %Eosinophils 0.1 % (0.0-10.0); %Lymphocytes 37.7 % (21.0-51.0); %Monocytes 14.7 % (0.0-10.0); %Neutrophils 47.3 % (42.0-75.0); Hemoglobin 8.4 g/dL (14.0-18.0); Mean Corpuscular HGB CONC 33.2 g/dL (32.0-36.0); Mean Corpuscular Hemoglobin 29.1 pg (27.0-31.0); Mean Corpuscular Volume 87.7 fL (78.0-98.0); Mean Platelet Volume 7.9 fL (7.4-10.4); Platelet Count 198 thou/uL (130-400); RBC Distribution Width 13.8 % (11.5-14.5); Red Blood Cell (RBC) Count 2.89 mill/uL (4.70-6.10); White Blood Cell (WBC) Count 4.3 thou/uL (4.8-10.8)
[2020-05-27 08:05] LABS: ALT (SGPT) 20 U/L (8-55); AST (SGOT) 23 U/L (5-34); Albumin 2.7 g/dL (3.4-4.8); Alkaline Phosphatase 240 U/L (40-110); Anion Gap 13 mmol/L (10-20); BUN (Urea Nitrogen) 34 mg/dL (8.4-25.7); Bilirubin, Total 0.3 mg/dL (0.2-1.2); Calc. Creatinine Clearance 75 mL/min (70-130); Calcium 7.5 mg/dL (7.8-10.44); Carbon Dioxide 22 mmol/L (23-31); Chloride 108 mmol/L (98-107); Globulin 2.6 g/dL (2.4-3.5); Glucose 162 mg/dL (80-115); Potassium 4.2 mmol/L (3.5-5.1); Protein, Total 5.3 g/dL (5.8-8.1); Sodium 139 mmol/L (136-145)
[2020-05-27] MEDS: Lisinopril 20 MG TAB PO SCH (08:32)
[2020-05-27] MEDS: Dexamethasone 4 MG TAB PO SCH (08:33)
[2020-05-27] MEDS: Ascorbic Acid 500 mg Chewable Tablet PO SCH (08:33)
[2020-05-27] MEDS: Clopidogrel Bisulfate 75 MG TAB PO SCH (08:34)
[2020-05-27] MEDS: Azelastine 137 MCG/Spray 30 ML NS SCH ×2 (08:34→22:10)
[2020-05-27] MEDS: Aspirin Chewable 81 MG TAB PO SCH (08:34)
[2020-05-27] MEDS: Carvedilol 6.25 MG TAB PO SCH ×3 (08:34→22:08)
[2020-05-27] MEDS: Enoxaparin Sodium 40 MG/0.4 ML SYRINGE SC SCH (08:35)
[2020-05-27] MEDS: metFORMIN 500 MG TAB PO SCH ×2 (08:36→22:08)
[2020-05-27] MEDS: Potassium Chloride 8 MEQ TAB PO SCH (08:37)
[2020-05-27] MEDS: Zinc Sulfate 220 MG CAP PO SCH (08:38)
[2020-05-27] MEDS: Mometasone 100 MCG/Formoterol 5 MCG 120 PUFF INHALER INH SCH (08:38)
[2020-05-27] MEDS: HumuLIN 70/30 (300 UNITS/3 ML VIAL) SC SCH ×2 (08:39→21:50)
[2020-05-27] MEDS: Cholecalciferol (Vitamin D3) 400 UNITS TAB PO SCH (08:39)
[2020-05-27] MEDS: Niacin 500 MG TAB PO SCH ×2 (08:43→22:09)
[2020-05-27] MEDS: Fluticasone Propionate Nasal Spray 16 gm Bottle NASAL SCH ×2 (09:16→22:10)
[2020-05-27] MEDS: Ferrous Fumarate 324 MG TAB PO SCH (09:16)
[2020-05-27] MEDS ORDERED: Furosemide 20 MG/2 ML VIAL SLOW IVP SCH (09:30)
[2020-05-27] MEDS: HumaLOG 300 UNITS/3 ML VIAL SC PRN ×2 (12:06→17:20)
[2020-05-27] MEDS: Atorvastatin Calcium 40 MG TAB PO SCH (22:08)
[2020-05-27] MEDS: Gabapentin 100 MG CAP PO SCH (22:08)
[2020-05-27] MEDS: traMADol HCl 50 MG TAB PO PRN (22:37)
[2020-05-28 05:27] LABS: #Lymphocytes 2.2 thou/uL (1.20-3.40); #Monocytes 0.7 thou/uL (0.11-0.59); #Neutrophils 3.2 thou/uL (1.40-6.50); %Basophils 0.6 % (0.0-1.0); %Eosinophils 0.1 % (0.0-10.0); %Lymphocytes 36.1 % (21.0-51.0); %Monocytes 10.8 % (0.0-10.0); %Neutrophils 52.4 % (42.0-75.0); Hemoglobin 8.9 g/dL (14.0-18.0); Mean Corpuscular HGB CONC 32.7 g/dL (32.0-36.0); Mean Corpuscular Hemoglobin 28.5 pg (27.0-31.0); Mean Corpuscular Volume 87.1 fL (78.0-98.0); Mean Platelet Volume 7.9 fL (7.4-10.4); Platelet Count 232 thou/uL (130-400); RBC Distribution Width 14.1 % (11.5-14.5); Red Blood Cell (RBC) Count 3.14 mill/uL (4.70-6.10); White Blood Cell (WBC) Count 6.1 thou/uL (4.8-10.8)
[2020-05-28 05:40] LABS: ALT (SGPT) 17 U/L (8-55); AST (SGOT) 21 U/L (5-34); Albumin 2.8 g/dL (3.4-4.8); Alkaline Phosphatase 236 U/L (40-110); Anion Gap 15 mmol/L (10-20); BUN (Urea Nitrogen) 40 mg/dL (8.4-25.7); Bilirubin, Total 0.3 mg/dL (0.2-1.2); Calc. Creatinine Clearance 75 mL/min (70-130); Calcium 7.7 mg/dL (7.8-10.44); Carbon Dioxide 22 mmol/L (23-31); Chloride 108 mmol/L (98-107); Globulin 2.9 g/dL (2.4-3.5); Glucose 138 mg/dL (80-115); Potassium 4.1 mmol/L (3.5-5.1); Protein, Total 5.7 g/dL (5.8-8.1); Sodium 141 mmol/L (136-145)
[2020-05-28] MEDS: Mometasone 100 MCG/Formoterol 5 MCG 120 PUFF INHALER INH SCH ×2 (06:23→18:19)
[2020-05-28] MEDS ORDERED: Amlodipine 5 MG TAB PO SCH (09:00)
[2020-05-28] MEDS ORDERED: Furosemide 20 MG/2 ML VIAL SLOW IVP SCH (09:15)
[2020-05-28] MEDS: Cholecalciferol (Vitamin D3) 400 UNITS TAB PO SCH (09:49)
[2020-05-28] MEDS: Aspirin Chewable 81 MG TAB PO SCH (09:49)
[2020-05-28] MEDS: Amlodipine 10 MG TAB PO SCH (09:50)
[2020-05-28] MEDS: Clopidogrel Bisulfate 75 MG TAB PO SCH (09:50)
[2020-05-28] MEDS: Carvedilol 6.25 MG TAB PO SCH (09:50)
[2020-05-28] MEDS: Ferrous Fumarate 324 MG TAB PO SCH (09:50)
[2020-05-28] MEDS: Ascorbic Acid 500 mg Chewable Tablet PO SCH (09:51)
[2020-05-28] MEDS: Zinc Sulfate 220 MG CAP PO SCH (09:51)
[2020-05-28] MEDS: Potassium Chloride 8 MEQ TAB PO SCH (09:51)
[2020-05-28] MEDS: Enoxaparin Sodium 40 MG/0.4 ML SYRINGE SC SCH (09:51)
[2020-05-28] MEDS: HumuLIN 70/30 (300 UNITS/3 ML VIAL) SC SCH ×2 (09:52→23:32)
[2020-05-28] MEDS: Fluticasone Propionate Nasal Spray 16 gm Bottle NASAL SCH ×2 (09:52→23:30)
[2020-05-28] MEDS: Azelastine 137 MCG/Spray 30 ML NS SCH ×2 (09:53→23:27)
[2020-05-28] MEDS: Niacin 500 MG TAB PO SCH (09:59)
[2020-05-28] MEDS: traMADol HCl 50 MG TAB PO PRN (14:24)
[2020-05-28] MEDS ORDERED: Carvedilol 6.25 MG TAB PO SCH (21:00)
[2020-05-28] MEDS: Dextrose 50% Abboject 50 ML SYRINGE SLOW IVP PRN (23:20)
[2020-05-28] MEDS: Atorvastatin Calcium 40 MG TAB PO SCH (23:27)
[2020-05-28] MEDS: Carvedilol 25 MG TAB PO SCH (23:27)
[2020-05-28] MEDS: Gabapentin 100 MG CAP PO SCH (23:27)
[2020-05-28] MEDS: guaiFENesin ER 600 MG TAB PO SCH (23:30)
[2020-05-29 05:18] LABS: #Lymphocytes 1.6 thou/uL (1.20-3.40); #Monocytes 0.5 thou/uL (0.11-0.59); #Neutrophils 2.4 thou/uL (1.40-6.50); %Basophils 0.3 % (0.0-1.0); %Eosinophils 0.2 % (0.0-10.0); %Lymphocytes 35.1 % (21.0-51.0); %Monocytes 11.2 % (0.0-10.0); %Neutrophils 53.2 % (42.0-75.0); Hemoglobin 8.3 g/dL (14.0-18.0); Mean Corpuscular HGB CONC 31.4 g/dL (32.0-36.0); Mean Corpuscular Hemoglobin 27.2 pg (27.0-31.0); Mean Corpuscular Volume 86.5 fL (78.0-98.0); Mean Platelet Volume 7.5 fL (7.4-10.4); Platelet Count 205 thou/uL (130-400); Red Blood Cell (RBC) Count 3.05 mill/uL (4.70-6.10); White Blood Cell (WBC) Count 4.6 thou/uL (4.8-10.8)
[2020-05-29 05:41] LABS: ALT (SGPT) 16 U/L (8-55); AST (SGOT) 22 U/L (5-34); Albumin 2.5 g/dL (3.4-4.8); Alkaline Phosphatase 218 U/L (40-110); Anion Gap 12 mmol/L (10-20); BUN (Urea Nitrogen) 40 mg/dL (8.4-25.7); Bilirubin, Total 0.3 mg/dL (0.2-1.2); Calc. Creatinine Clearance 72 mL/min (70-130); Calcium 7.3 mg/dL (7.8-10.44); Carbon Dioxide 22 mmol/L (23-31); Chloride 108 mmol/L (98-107); Globulin 2.8 g/dL (2.4-3.5); Glucose 101 mg/dL (80-115); Potassium 4.1 mmol/L (3.5-5.1); Protein, Total 5.3 g/dL (5.8-8.1); Sodium 138 mmol/L (136-145)
[2020-05-29] MEDS: Mometasone 100 MCG/Formoterol 5 MCG 120 PUFF INHALER INH SCH ×2 (06:11→19:03)
[2020-05-29] MEDS: Cholecalciferol (Vitamin D3) 400 UNITS TAB PO SCH (09:46)
[2020-05-29] MEDS: Carvedilol 25 MG TAB PO SCH ×2 (09:47→21:31)
[2020-05-29] MEDS: guaiFENesin ER 600 MG TAB PO SCH ×2 (09:47→21:31)
[2020-05-29] MEDS: Ascorbic Acid 500 mg Chewable Tablet PO SCH (09:47)
[2020-05-29] MEDS: Amlodipine 10 MG TAB PO SCH (09:47)
[2020-05-29] MEDS: Aspirin Chewable 81 MG TAB PO SCH (09:47)
[2020-05-29] MEDS: Zinc Sulfate 220 MG CAP PO SCH (09:47)
[2020-05-29] MEDS: Clopidogrel Bisulfate 75 MG TAB PO SCH (09:47)
[2020-05-29] MEDS: Potassium Chloride 8 MEQ TAB PO SCH (09:47)
[2020-05-29] MEDS: Ferrous Fumarate 324 MG TAB PO SCH (09:48)
[2020-05-29] MEDS: HumuLIN 70/30 (300 UNITS/3 ML VIAL) SC SCH ×2 (09:49→19:16)
[2020-05-29] MEDS: Fluticasone Propionate Nasal Spray 16 gm Bottle NASAL SCH (09:52)
[2020-05-29] MEDS: Azelastine 137 MCG/Spray 30 ML NS SCH ×2 (09:52→21:37)
[2020-05-29] MEDS: Enoxaparin Sodium 40 MG/0.4 ML SYRINGE SC SCH (09:52)
[2020-05-29] MEDS ORDERED: Dexamethasone 4 MG TAB PO SCH (12:45)
[2020-05-29] MEDS: Ondansetron PF 4 MG/2 ML Vial IVP PRN (13:50)
[2020-05-29] MEDS: Atorvastatin Calcium 40 MG TAB PO SCH (21:31)
[2020-05-29] MEDS: Gabapentin 100 MG CAP PO SCH (21:31)
[2020-05-30] MEDS: Fluticasone Propionate Nasal Spray 16 gm Bottle NASAL SCH ×3 (02:19→20:47)
[2020-05-30 07:00] LABS: #Lymphocytes 0.6 thou/uL (1.20-3.40); #Monocytes 0.3 thou/uL (0.11-0.59); #Neutrophils 1.1 thou/uL (1.40-6.50); %Basophils 0.6 % (0.0-1.0); %Eosinophils 0.6 % (0.0-10.0); %Lymphocytes 31.1 % (21.0-51.0); %Monocytes 12.6 % (0.0-10.0); Hemoglobin 8.7 g/dL (14.0-18.0); Mean Corpuscular Hemoglobin 28.8 pg (27.0-31.0); Mean Corpuscular Volume 87.1 fL (78.0-98.0); Mean Platelet Volume 7.8 fL (7.4-10.4); Platelet Count 196 thou/uL (130-400); RBC Distribution Width 13.9 % (11.5-14.5); Red Blood Cell (RBC) Count 3.01 mill/uL (4.70-6.10)
[2020-05-30 07:18] LABS: ALT (SGPT) 20 U/L (8-55); AST (SGOT) 28 U/L (5-34); Albumin 2.6 g/dL (3.4-4.8); Alkaline Phosphatase 264 U/L (40-110); Anion Gap 17 mmol/L (10-20); BUN (Urea Nitrogen) 50 mg/dL (8.4-25.7); Bilirubin, Total 0.3 mg/dL (0.2-1.2); Calc. Creatinine Clearance 62 mL/min (70-130); Calcium 7.2 mg/dL (7.8-10.44); Carbon Dioxide 18 mmol/L (23-31); Chloride 108 mmol/L (98-107); Globulin 2.7 g/dL (2.4-3.5); Glucose 186 mg/dL (80-115); Potassium 4.9 mmol/L (3.5-5.1); Protein, Total 5.3 g/dL (5.8-8.1); Sodium 138 mmol/L (136-145)
[2020-05-30] MEDS ORDERED: Furosemide 20 MG/2 ML VIAL SLOW IVP SCH (08:45)
[2020-05-30] MEDS: HumuLIN 70/30 (300 UNITS/3 ML VIAL) SC SCH ×2 (09:52→17:28)
[2020-05-30] MEDS: Enoxaparin Sodium 40 MG/0.4 ML SYRINGE SC SCH (09:55)
[2020-05-30] MEDS: Cholecalciferol (Vitamin D3) 400 UNITS TAB PO SCH (09:55)
[2020-05-30] MEDS: Aspirin Chewable 81 MG TAB PO SCH (09:55)
[2020-05-30] MEDS: Zinc Sulfate 220 MG CAP PO SCH (09:55)
[2020-05-30] MEDS: Potassium Chloride 8 MEQ TAB PO SCH (09:56)
[2020-05-30] MEDS: Ascorbic Acid 500 mg Chewable Tablet PO SCH (09:56)
[2020-05-30] MEDS: Amlodipine 10 MG TAB PO SCH (09:56)
[2020-05-30] MEDS: Clopidogrel Bisulfate 75 MG TAB PO SCH (09:57)
[2020-05-30] MEDS: Dexamethasone 4 MG TAB PO SCH (09:57)
[2020-05-30] MEDS: guaiFENesin ER 600 MG TAB PO SCH ×2 (09:57→20:22)
[2020-05-30] MEDS: Carvedilol 25 MG TAB PO SCH ×2 (09:57→20:22)
[2020-05-30] MEDS: Ferrous Fumarate 324 MG TAB PO SCH (09:58)
[2020-05-30] MEDS: Azelastine 137 MCG/Spray 30 ML NS SCH ×2 (10:14→20:47)
[2020-05-30] MEDS: Mometasone 100 MCG/Formoterol 5 MCG 120 PUFF INHALER INH SCH ×2 (10:15→17:33)
[2020-05-30] MEDS: traMADol HCl 50 MG TAB PO PRN (11:55)
[2020-05-30] MEDS: Atorvastatin Calcium 40 MG TAB PO SCH (20:22)
[2020-05-30] MEDS: Gabapentin 100 MG CAP PO SCH (20:23)
[2020-05-30] MEDS: HumaLOG 300 UNITS/3 ML VIAL SC PRN (20:49)
[2020-05-31 05:24] LABS: #Lymphocytes 0.9 thou/uL (1.20-3.40); #Monocytes 0.3 thou/uL (0.11-0.59); #Neutrophils 1.8 thou/uL (1.40-6.50); %Eosinophils 0.1 % (0.0-10.0); %Lymphocytes 29.6 % (21.0-51.0); %Monocytes 9.9 % (0.0-10.0); %Neutrophils 59.5 % (42.0-75.0); Hemoglobin 8.7 g/dL (14.0-18.0); Mean Corpuscular HGB CONC 32.4 g/dL (32.0-36.0); Mean Corpuscular Hemoglobin 27.9 pg (27.0-31.0); Mean Corpuscular Volume 85.9 fL (78.0-98.0); Mean Platelet Volume 7.9 fL (7.4-10.4); Platelet Count 238 thou/uL (130-400); RBC Distribution Width 14.1 % (11.5-14.5); Red Blood Cell (RBC) Count 3.11 mill/uL (4.70-6.10); White Blood Cell (WBC) Count 3.1 thou/uL (4.8-10.8)
[2020-05-31 05:47] LABS: ALT (SGPT) 17 U/L (8-55); AST (SGOT) 26 U/L (5-34); Albumin 2.7 g/dL (3.4-4.8); Alkaline Phosphatase 239 U/L (40-110); Anion Gap 14 mmol/L (10-20); BUN (Urea Nitrogen) 66 mg/dL (8.4-25.7); Bilirubin, Total 0.3 mg/dL (0.2-1.2); Calc. Creatinine Clearance 59 mL/min (70-130); Calcium 7.2 mg/dL (7.8-10.44); Carbon Dioxide 22 mmol/L (23-31); Chloride 106 mmol/L (98-107); Globulin 2.9 g/dL (2.4-3.5); Glucose 319 mg/dL (80-115); Potassium 5.2 mmol/L (3.5-5.1); Protein, Total 5.6 g/dL (5.8-8.1); Sodium 137 mmol/L (136-145)
[2020-05-31] MEDS: Mometasone 100 MCG/Formoterol 5 MCG 120 PUFF INHALER INH SCH ×2 (07:46→17:56)
[2020-05-31] MEDS: Dexamethasone 4 MG TAB PO SCH (07:47)
[2020-05-31] MEDS: Ferrous Fumarate 324 MG TAB PO SCH (07:48)
[2020-05-31] MEDS: Ascorbic Acid 500 mg Chewable Tablet PO SCH (07:49)
[2020-05-31] MEDS: Amlodipine 10 MG TAB PO SCH (07:49)
[2020-05-31] MEDS: Azelastine 137 MCG/Spray 30 ML NS SCH (07:50)
[2020-05-31] MEDS: Carvedilol 25 MG TAB PO SCH (07:50)
[2020-05-31] MEDS: Aspirin Chewable 81 MG TAB PO SCH (07:50)
[2020-05-31] MEDS: Cholecalciferol (Vitamin D3) 400 UNITS TAB PO SCH (07:50)
[2020-05-31] MEDS: Clopidogrel Bisulfate 75 MG TAB PO SCH (07:51)
[2020-05-31] MEDS: Enoxaparin Sodium 40 MG/0.4 ML SYRINGE SC SCH (07:51)
[2020-05-31] MEDS: guaiFENesin ER 600 MG TAB PO SCH (07:52)
[2020-05-31] MEDS: Zinc Sulfate 220 MG CAP PO SCH (07:54)
[2020-05-31] MEDS: HumuLIN 70/30 (300 UNITS/3 ML VIAL) SC SCH (07:54)
[2020-05-31] MEDS ORDERED: Furosemide 20 MG/2 ML VIAL SLOW IVP SCH (10:00)
[2020-05-31] MEDS: Fluticasone Propionate Nasal Spray 16 gm Bottle NASAL SCH (10:10)
[2020-05-31] MEDS: Potassium Chloride 8 MEQ TAB PO SCH (11:24)
[2020-05-31] MEDS: HumaLOG 300 UNITS/3 ML VIAL SC PRN ×2 (11:25→17:57)
[2020-05-31 14:45] LABS: Anion Gap 15 mmol/L (10-20); BUN (Urea Nitrogen) 67 mg/dL (8.4-25.7); Calc. Creatinine Clearance 59 mL/min (70-130); Calcium 7.1 mg/dL (7.8-10.44); Carbon Dioxide 20 mmol/L (23-31); Chloride 106 mmol/L (98-107); Glucose 369 mg/dL (80-115); Potassium 5.2 mmol/L (3.5-5.1); Sodium 136 mmol/L (136-145)
[2020-05-31] MEDS: traMADol HCl 50 MG TAB PO PRN (18:10)
[2020-05-31] MEDS ORDERED: Insulin Glargine 15 UNITS in Pre-Filled Syringe 1 EACH SC SCH (21:00)
[2020-06-01] MEDS: guaiFENesin ER 600 MG TAB PO SCH ×3 (00:22→21:40)
[2020-06-01] MEDS: Gabapentin 100 MG CAP PO SCH ×2 (00:22→21:39)
[2020-06-01] MEDS: Atorvastatin Calcium 40 MG TAB PO SCH ×2 (00:22→21:38)
[2020-06-01] MEDS: Carvedilol 25 MG TAB PO SCH ×3 (00:24→21:39)
[2020-06-01] MEDS: Azelastine 137 MCG/Spray 30 ML NS SCH ×3 (00:25→21:38)
[2020-06-01] MEDS: HumaLOG 300 UNITS/3 ML VIAL SC PRN ×5 (00:27→18:05)
[2020-06-01] MEDS: Lantus 1000 UNITS/10 ML VIAL SC SCH ×2 (00:28→21:41)
[2020-06-01] MEDS: Fluticasone Propionate Nasal Spray 16 gm Bottle NASAL SCH ×3 (00:40→21:41)
[2020-06-01 05:16] LABS: #Lymphocytes 1.2 thou/uL (1.20-3.40); #Monocytes 0.4 thou/uL (0.11-0.59); #Neutrophils 3.8 thou/uL (1.40-6.50); %Basophils 0.3 % (0.0-1.0); %Eosinophils 0.2 % (0.0-10.0); %Lymphocytes 21.6 % (21.0-51.0); %Monocytes 7.8 % (0.0-10.0); %Neutrophils 70.1 % (42.0-75.0); Mean Corpuscular HGB CONC 32.7 g/dL (32.0-36.0); Mean Corpuscular Hemoglobin 28.1 pg (27.0-31.0); Mean Platelet Volume 7.9 fL (7.4-10.4); Platelet Count 278 thou/uL (130-400); RBC Distribution Width 14.2 % (11.5-14.5); White Blood Cell (WBC) Count 5.4 thou/uL (4.8-10.8)
[2020-06-01 05:42] LABS: ALT (SGPT) 18 U/L (8-55); AST (SGOT) 19 U/L (5-34); Albumin 2.6 g/dL (3.4-4.8); Alkaline Phosphatase 217 U/L (40-110); Anion Gap 14 mmol/L (10-20); BUN (Urea Nitrogen) 72 mg/dL (8.4-25.7); Bilirubin, Total 0.3 mg/dL (0.2-1.2); Calc. Creatinine Clearance 61 mL/min (70-130); Carbon Dioxide 21 mmol/L (23-31); Chloride 106 mmol/L (98-107); Globulin 2.7 g/dL (2.4-3.5); Glucose 367 mg/dL (80-115); Potassium 5.1 mmol/L (3.5-5.1); Protein, Total 5.3 g/dL (5.8-8.1); Sodium 136 mmol/L (136-145)
[2020-06-01] MEDS: Mometasone 100 MCG/Formoterol 5 MCG 120 PUFF INHALER INH SCH ×2 (07:41→16:53)
[2020-06-01] MEDS: Amlodipine 10 MG TAB PO SCH (08:16)
[2020-06-01] MEDS: Aspirin Chewable 81 MG TAB PO SCH (08:17)
[2020-06-01] MEDS: Cholecalciferol (Vitamin D3) 400 UNITS TAB PO SCH (08:17)
[2020-06-01] MEDS: Clopidogrel Bisulfate 75 MG TAB PO SCH (08:17)
[2020-06-01] MEDS: Ascorbic Acid 500 mg Chewable Tablet PO SCH (08:17)
[2020-06-01] MEDS: Enoxaparin Sodium 40 MG/0.4 ML SYRINGE SC SCH (08:18)
[2020-06-01] MEDS: Zinc Sulfate 220 MG CAP PO SCH (08:19)
[2020-06-01] MEDS: Potassium Chloride 8 MEQ TAB PO SCH (08:19)
[2020-06-01] MEDS: Ferrous Fumarate 324 MG TAB PO SCH (08:23)
[2020-06-01] MEDS ORDERED: Benzonatate 100 MG CAP PO PRN (15:27)
[2020-06-01] MEDS: traMADol HCl 50 MG TAB PO PRN (18:23)
[2020-06-02] MEDS: Azelastine 137 MCG/Spray 30 ML NS SCH ×3 (02:11→22:20)
[2020-06-02] MEDS: Fluticasone Propionate Nasal Spray 16 gm Bottle NASAL SCH ×3 (02:12→22:20)
[2020-06-02] MEDS: Mometasone 100 MCG/Formoterol 5 MCG 120 PUFF INHALER INH SCH ×2 (06:29→19:58)
[2020-06-02] MEDS: traMADol HCl 50 MG TAB PO PRN (06:30)
[2020-06-02] MEDS ORDERED: Furosemide 40 MG/4 ML VIAL SLOW IVP SCH ×2 (08:00→22:15)
[2020-06-02] MEDS ORDERED: HumaLOG 300 UNITS/3 ML VIAL SC SCH ×2 (08:00)
[2020-06-02 08:51] LABS: Anion Gap 15 mmol/L (10-20); BUN (Urea Nitrogen) 76 mg/dL (8.4-25.7); Calc. Creatinine Clearance 71 mL/min (70-130); Calcium 7.3 mg/dL (7.8-10.44); Carbon Dioxide 20 mmol/L (23-31); Chloride 110 mmol/L (98-107); Glucose 125 mg/dL (80-115); Potassium 4.6 mmol/L (3.5-5.1); Sodium 140 mmol/L (136-145)
[2020-06-02] MEDS: Clopidogrel Bisulfate 75 MG TAB PO SCH (09:03)
[2020-06-02] MEDS: Cholecalciferol (Vitamin D3) 400 UNITS TAB PO SCH (09:03)
[2020-06-02] MEDS: Carvedilol 25 MG TAB PO SCH ×2 (09:03→21:55)
[2020-06-02] MEDS: Zinc Sulfate 220 MG CAP PO SCH (09:03)
[2020-06-02] MEDS: Aspirin Chewable 81 MG TAB PO SCH (09:03)
[2020-06-02] MEDS: Potassium Chloride 8 MEQ TAB PO SCH (09:04)
[2020-06-02] MEDS: Enoxaparin Sodium 40 MG/0.4 ML SYRINGE SC SCH (09:04)
[2020-06-02] MEDS: guaiFENesin ER 600 MG TAB PO SCH ×2 (09:05→21:55)
[2020-06-02] MEDS: Ascorbic Acid 500 mg Chewable Tablet PO SCH (09:05)
[2020-06-02] MEDS: Amlodipine 10 MG TAB PO SCH (09:05)
[2020-06-02] MEDS: Ferrous Fumarate 324 MG TAB PO SCH (09:06)
[2020-06-02] MEDS ORDERED: Potassium Chloride 20 MEQ in Premix Bag 1 BAG IVPB SCH ×2 (10:15)
[2020-06-02] MEDS: Furosemide 40 MG/4 ML VIAL SLOW IVP SCH (17:09)
[2020-06-02] MEDS: Lantus 1000 UNITS/10 ML VIAL SC SCH (20:49)
[2020-06-02] MEDS ORDERED: Furosemide 40 MG/4 ML VIAL ONE (21:54)
[2020-06-02] MEDS: Atorvastatin Calcium 40 MG TAB PO SCH (21:56)
[2020-06-02] MEDS: Gabapentin 100 MG CAP PO SCH (21:56)
[2020-06-03] MEDS: Furosemide 40 MG/4 ML VIAL SLOW IVP SCH (05:05)
[2020-06-03] MEDS: Mometasone 100 MCG/Formoterol 5 MCG 120 PUFF INHALER INH SCH ×2 (05:06→18:05)
[2020-06-03] MEDS: Ondansetron PF 4 MG/2 ML Vial IVP PRN (06:46)
[2020-06-03] MEDS: Azelastine 137 MCG/Spray 30 ML NS SCH ×2 (07:55→21:04)
[2020-06-03] MEDS: Fluticasone Propionate Nasal Spray 16 gm Bottle NASAL SCH ×2 (07:55→21:04)
[2020-06-03] MEDS: Enoxaparin Sodium 40 MG/0.4 ML SYRINGE SC SCH (07:55)
[2020-06-03] MEDS: guaiFENesin ER 600 MG TAB PO SCH ×2 (07:56→20:37)
[2020-06-03] MEDS: Cholecalciferol (Vitamin D3) 400 UNITS TAB PO SCH (07:56)
[2020-06-03] MEDS: Aspirin Chewable 81 MG TAB PO SCH (07:56)
[2020-06-03] MEDS: Ascorbic Acid 500 mg Chewable Tablet PO SCH ×2 (07:56→20:35)
[2020-06-03] MEDS: Clopidogrel Bisulfate 75 MG TAB PO SCH (07:57)
[2020-06-03] MEDS: Amlodipine 10 MG TAB PO SCH (07:57)
[2020-06-03] MEDS: Potassium Chloride 8 MEQ TAB PO SCH (07:57)
[2020-06-03] MEDS: Zinc Sulfate 220 MG CAP PO SCH (07:58)
[2020-06-03] MEDS: Carvedilol 25 MG TAB PO SCH ×2 (07:58→20:36)
[2020-06-03] MEDS ORDERED: HumaLOG 300 UNITS/3 ML VIAL SC SCH (08:00)
[2020-06-03] MEDS: Ferrous Fumarate 324 MG TAB PO SCH (08:08)
[2020-06-03 09:56] LABS: Anion Gap 13 mmol/L (10-20); BUN (Urea Nitrogen) 70 mg/dL (8.4-25.7); Calc. Creatinine Clearance 71 mL/min (70-130); Calcium 7.6 mg/dL (7.8-10.44); Carbon Dioxide 23 mmol/L (23-31); Chloride 107 mmol/L (98-107); Glucose 157 mg/dL (80-115); Potassium 4.4 mmol/L (3.5-5.1); Sodium 139 mmol/L (136-145)
[2020-06-03 10:34] LABS: Actual Bicarbonate (HCO3a) 21.5 mEq/L (22-28); Base Excess (BEa) -2.5 mEq/L (-2.0 to +3.0); CO2 Tension 33.6 mmHg (35.0-45.0); Calcium, Ionized (arterial) 1.08 mmol/L (1.12-1.30); Carboxyhemoglobin (COHb) 0.3 gm% (0.0-3.0); Hemoglobin (Hb) 9.2 g/dL (14.0-18.0); O2 Tension (PaO2), arterial 84.2 mmHg (> 80.0); Potassium - ABG Lab 4.33 mmol/L (3.70-5.30); pH, Arterial 7.42 (7.35-7.45)
[2020-06-03 10:37] LABS: Puncture Site LRA
[2020-06-03] MEDS ORDERED: Furosemide 20 MG/2 ML VIAL SLOW IVP SCH (12:00)
[2020-06-03] MEDS ORDERED: Furosemide 40 MG/4 ML VIAL SLOW IVP SCH (16:00)
[2020-06-03] MEDS ORDERED: SODIUM CHLORIDE 0.45% IVPB SCH (18:00)
[2020-06-03] MEDS ORDERED: HYDROCORTISONE SOD SUCC IVPB SCH (18:00)
[2020-06-03] MEDS: Melatonin 3 MG TAB PO SCH (20:35)
[2020-06-03] MEDS: Gabapentin 100 MG CAP PO SCH (20:36)
[2020-06-03] MEDS: Atorvastatin Calcium 40 MG TAB PO SCH (20:36)
[2020-06-03] MEDS: Lantus 1000 UNITS/10 ML VIAL SC SCH (21:04)
[2020-06-04] MEDS: HumaLOG 300 UNITS/3 ML VIAL SC PRN ×4 (05:44→23:53)
[2020-06-04] MEDS ORDERED: Furosemide 100 MG/10 ML VIAL SLOW IVP SCH (06:00)
[2020-06-04] MEDS: Mometasone 100 MCG/Formoterol 5 MCG 120 PUFF INHALER INH SCH ×2 (06:40→19:16)
[2020-06-04 07:00] LABS: Anion Gap 25 mmol/L (10-20); BUN (Urea Nitrogen) 78 mg/dL (8.4-25.7); Calc. Creatinine Clearance 56 mL/min (70-130); Calcium 7.6 mg/dL (7.8-10.44); Carbon Dioxide 15 mmol/L (23-31); Chloride 107 mmol/L (98-107); Glucose 324 mg/dL (80-115); Sodium 142 mmol/L (136-145)
[2020-06-04] MEDS ORDERED: Potassium Chloride 10 MEQ TAB PO SCH (08:00)
[2020-06-04] MEDS ORDERED: Potassium Chloride 8 MEQ TAB PO SCH (09:00)
[2020-06-04] MEDS ORDERED: Lantus 1000 UNITS/10 ML VIAL SC SCH (09:00)
[2020-06-04] MEDS: Aspirin Chewable 81 MG TAB PO SCH (09:11)
[2020-06-04] MEDS: Amlodipine 10 MG TAB PO SCH (09:11)
[2020-06-04] MEDS: Clopidogrel Bisulfate 75 MG TAB PO SCH (09:11)
[2020-06-04] MEDS: Thiamine 100 MG TAB PO SCH (09:11)
[2020-06-04] MEDS: Ascorbic Acid 500 mg Chewable Tablet PO SCH ×2 (09:11→20:47)
[2020-06-04] MEDS: Zinc Sulfate 220 MG CAP PO SCH (09:11)
[2020-06-04] MEDS: Enoxaparin Sodium 40 MG/0.4 ML SYRINGE SC SCH (09:12)
[2020-06-04] MEDS: Cholecalciferol (Vitamin D3) 400 UNITS TAB PO SCH (09:12)
[2020-06-04] MEDS: guaiFENesin ER 600 MG TAB PO SCH ×2 (09:12→20:47)
[2020-06-04] MEDS: Carvedilol 25 MG TAB PO SCH ×2 (09:12→20:47)
[2020-06-04] MEDS: Ferrous Fumarate 324 MG TAB PO SCH (09:13)
[2020-06-04] MEDS: Azelastine 137 MCG/Spray 30 ML NS SCH ×2 (09:13→20:47)
[2020-06-04] MEDS: Fluticasone Propionate Nasal Spray 16 gm Bottle NASAL SCH ×2 (09:13→22:05)
[2020-06-04] MEDS: methylPREDNISolone Sod Succ/PF 110 MG in Sodium Chloride 0.9% 250 ML 250 ML IVPB SCH (14:30)
[2020-06-04] MEDS: Atorvastatin Calcium 40 MG TAB PO SCH (20:47)
[2020-06-04] MEDS: Gabapentin 100 MG CAP PO SCH (20:47)
[2020-06-04] MEDS: Melatonin 3 MG TAB PO SCH (20:47)
[2020-06-05 04:05] LABS: Anion Gap 17 mmol/L (10-20); BUN (Urea Nitrogen) 91 mg/dL (8.4-25.7); CRP (Inflammatory) 11.23 mg/dL (= or < 0.5); Calc. Creatinine Clearance 55 mL/min (70-130); Calcium 7.4 mg/dL (7.8-10.44); Carbon Dioxide 21 mmol/L (23-31); Chloride 108 mmol/L (98-107); Glucose 412 mg/dL (80-115); Potassium 4.6 mmol/L (3.5-5.1); Sodium 141 mmol/L (136-145)
[2020-06-05] MEDS: Lantus 1000 UNITS/10 ML VIAL SC SCH (05:30)
[2020-06-05] MEDS: HumaLOG 300 UNITS/3 ML VIAL SC PRN ×4 (05:54→16:15)
[2020-06-05] MEDS: Cholecalciferol (Vitamin D3) 400 UNITS TAB PO SCH (09:09)
[2020-06-05] MEDS: Enoxaparin Sodium 40 MG/0.4 ML SYRINGE SC SCH (09:09)
[2020-06-05] MEDS: Aspirin Chewable 81 MG TAB PO SCH (09:09)
[2020-06-05] MEDS: Zinc Sulfate 220 MG CAP PO SCH (09:10)
[2020-06-05] MEDS: Carvedilol 25 MG TAB PO SCH ×2 (09:10→20:20)
[2020-06-05] MEDS: Ascorbic Acid 500 mg Chewable Tablet PO SCH ×2 (09:10→20:19)
[2020-06-05] MEDS: guaiFENesin ER 600 MG TAB PO SCH ×2 (09:10→20:20)
[2020-06-05] MEDS: Ferrous Fumarate 324 MG TAB PO SCH (09:10)
[2020-06-05] MEDS: Clopidogrel Bisulfate 75 MG TAB PO SCH (09:10)
[2020-06-05] MEDS: Amlodipine 10 MG TAB PO SCH (09:10)
[2020-06-05] MEDS: Fluticasone Propionate Nasal Spray 16 gm Bottle NASAL SCH ×2 (09:11→21:37)
[2020-06-05] MEDS: Mometasone 100 MCG/Formoterol 5 MCG 120 PUFF INHALER INH SCH ×2 (09:11→18:11)
[2020-06-05] MEDS: Thiamine 100 MG TAB PO SCH (09:11)
[2020-06-05] MEDS: Azelastine 137 MCG/Spray 30 ML NS SCH ×2 (09:11→21:38)
[2020-06-05 13:15] LABS: #Lymphocytes 0.4 thou/uL (1.20-3.40); #Monocytes 0.3 thou/uL (0.11-0.59); #Neutrophils 7.1 thou/uL (1.40-6.50); %Lymphocytes 5.4 % (21.0-51.0); %Monocytes 3.6 % (0.0-10.0); %Neutrophils 90.9 % (42.0-75.0); Hemoglobin 8.9 g/dL (14.0-18.0); Mean Corpuscular HGB CONC 32.5 g/dL (32.0-36.0); Mean Corpuscular Hemoglobin 27.9 pg (27.0-31.0); Mean Platelet Volume 7.7 fL (7.4-10.4); Platelet Count 311 thou/uL (130-400); RBC Distribution Width 14.3 % (11.5-14.5); Red Blood Cell (RBC) Count 3.17 mill/uL (4.70-6.10); White Blood Cell (WBC) Count 7.8 thou/uL (4.8-10.8)
[2020-06-05] MEDS: methylPREDNISolone Sod Succ/PF 110 MG in Sodium Chloride 0.9% 250 ML 250 ML IVPB SCH (13:46)
[2020-06-05] MEDS: Melatonin 3 MG TAB PO SCH (20:19)
[2020-06-05] MEDS: Atorvastatin Calcium 40 MG TAB PO SCH (20:20)
[2020-06-05] MEDS: Gabapentin 100 MG CAP PO SCH (20:20)
[2020-06-06 04:18] LABS: Anion Gap 15 mmol/L (10-20); BUN (Urea Nitrogen) 97 mg/dL (8.4-25.7); CRP (Inflammatory) 6.18 mg/dL (= or < 0.5); Calc. Creatinine Clearance 61 mL/min (70-130); Calcium 7.7 mg/dL (7.8-10.44); Carbon Dioxide 23 mmol/L (23-31); Chloride 109 mmol/L (98-107); Glucose 212 mg/dL (80-115); Potassium 4.6 mmol/L (3.5-5.1); Sodium 142 mmol/L (136-145)
[2020-06-06] MEDS: Lantus 1000 UNITS/10 ML VIAL SC SCH (05:20)
[2020-06-06] MEDS ORDERED: traMADol HCl 50 MG TAB PO PRN (07:43)
[2020-06-06] MEDS ORDERED: HYDROcodone/Acetaminophen 5/325 mg Tablet PO PRN (07:45)
[2020-06-06] MEDS: Ascorbic Acid 500 mg Chewable Tablet PO SCH ×2 (08:53→20:53)
[2020-06-06] MEDS: Enoxaparin Sodium 40 MG/0.4 ML SYRINGE SC SCH (08:53)
[2020-06-06] MEDS: Cholecalciferol (Vitamin D3) 400 UNITS TAB PO SCH (08:54)
[2020-06-06] MEDS: Aspirin Chewable 81 MG TAB PO SCH (08:54)
[2020-06-06] MEDS: Ferrous Fumarate 324 MG TAB PO SCH (08:54)
[2020-06-06] MEDS: Thiamine 100 MG TAB PO SCH (08:54)
[2020-06-06] MEDS: Mometasone 100 MCG/Formoterol 5 MCG 120 PUFF INHALER INH SCH ×2 (08:54→18:13)
[2020-06-06] MEDS: Zinc Sulfate 220 MG CAP PO SCH (08:54)
[2020-06-06] MEDS: Clopidogrel Bisulfate 75 MG TAB PO SCH (08:54)
[2020-06-06] MEDS: guaiFENesin ER 600 MG TAB PO SCH ×2 (08:54→20:55)
[2020-06-06] MEDS: Amlodipine 10 MG TAB PO SCH (08:54)
[2020-06-06] MEDS: Azelastine 137 MCG/Spray 30 ML NS SCH ×2 (08:54→20:56)
[2020-06-06] MEDS: Carvedilol 25 MG TAB PO SCH ×2 (08:54→20:55)
[2020-06-06] MEDS: Fluticasone Propionate Nasal Spray 16 gm Bottle NASAL SCH ×2 (08:55→20:56)
[2020-06-06] MEDS: HumaLOG 300 UNITS/3 ML VIAL SC PRN ×2 (08:58→12:16)
[2020-06-06] MEDS: methylPREDNISolone Sod Succ/PF 110 MG in Sodium Chloride 0.9% 250 ML 250 ML IVPB SCH (15:11)
[2020-06-06] MEDS: Melatonin 3 MG TAB PO SCH (20:53)
[2020-06-06] MEDS: Atorvastatin Calcium 40 MG TAB PO SCH (20:55)
[2020-06-06] MEDS: Gabapentin 100 MG CAP PO SCH (20:55)
[2020-06-07] MEDS: Ascorbic Acid 500 mg Chewable Tablet PO SCH ×2 (08:10→20:25)
[2020-06-07] MEDS: Zinc Sulfate 220 MG CAP PO SCH (08:10)
[2020-06-07] MEDS: Aspirin Chewable 81 MG TAB PO SCH (08:10)
[2020-06-07] MEDS: Enoxaparin Sodium 40 MG/0.4 ML SYRINGE SC SCH (08:10)
[2020-06-07] MEDS: Cholecalciferol (Vitamin D3) 400 UNITS TAB PO SCH (08:10)
[2020-06-07] MEDS: Mometasone 100 MCG/Formoterol 5 MCG 120 PUFF INHALER INH SCH ×2 (08:10→17:57)
[2020-06-07] MEDS: Clopidogrel Bisulfate 75 MG TAB PO SCH (08:10)
[2020-06-07] MEDS: Ferrous Fumarate 324 MG TAB PO SCH (08:11)
[2020-06-07] MEDS: Fluticasone Propionate Nasal Spray 16 gm Bottle NASAL SCH ×2 (08:11→20:51)
[2020-06-07] MEDS: Carvedilol 25 MG TAB PO SCH ×2 (08:11→20:24)
[2020-06-07] MEDS: Azelastine 137 MCG/Spray 30 ML NS SCH ×2 (08:11→20:51)
[2020-06-07] MEDS: Amlodipine 10 MG TAB PO SCH (08:11)
[2020-06-07] MEDS: guaiFENesin ER 600 MG TAB PO SCH ×2 (08:11→20:26)
[2020-06-07] MEDS: Thiamine 100 MG TAB PO SCH (08:12)
[2020-06-07] MEDS: HumaLOG 300 UNITS/3 ML VIAL SC PRN (08:14)
[2020-06-07] MEDS ORDERED: Lantus 1000 UNITS/10 ML VIAL SC SCH (09:00)
[2020-06-07] MEDS ORDERED: Ivermectin 3 MG TAB PO SCH (09:15)
[2020-06-07 09:35] LABS: Anion Gap 15 mmol/L (10-20); Calcium 7.7 mg/dL (7.8-10.44); Carbon Dioxide 24 mmol/L (23-31); Chloride 114 mmol/L (98-107); Potassium 4.6 mmol/L (3.5-5.1); Sodium 148 mmol/L (136-145)
[2020-06-07 09:42] LABS: BUN (Urea Nitrogen) 97 mg/dL (8.4-25.7); Calc. Creatinine Clearance 66 mL/min (70-130); Glucose 193 mg/dL (80-115)
[2020-06-07] MEDS ORDERED: Sodium Chloride 0.9% 1,000 ML IV SCH (12:45)
[2020-06-07] MEDS: methylPREDNISolone Sod Succ/PF 110 MG in Sodium Chloride 0.9% 250 ML 250 ML IVPB SCH (15:08)
[2020-06-07] MEDS: Melatonin 3 MG TAB PO SCH (20:24)
[2020-06-07] MEDS: Gabapentin 100 MG CAP PO SCH (20:26)
[2020-06-07] MEDS: Atorvastatin Calcium 40 MG TAB PO SCH (20:26)
[2020-06-08 04:17] LABS: Anion Gap 12 mmol/L (10-20); BUN (Urea Nitrogen) 88 mg/dL (8.4-25.7); CRP (Inflammatory) 4.27 mg/dL (= or < 0.5); Calc. Creatinine Clearance 79 mL/min (70-130); Calcium 7.6 mg/dL (7.8-10.44); Carbon Dioxide 25 mmol/L (23-31); Chloride 118 mmol/L (98-107); Glucose 123 mg/dL (80-115); Potassium 4.1 mmol/L (3.5-5.1); Sodium 151 mmol/L (136-145)
[2020-06-08 06:54] LABS: Hemoglobin 8.7 g/dL (14.0-18.0); Mean Corpuscular HGB CONC 32.7 g/dL (32.0-36.0); Mean Corpuscular Volume 85.8 fL (78.0-98.0); Mean Platelet Volume 8.2 fL (7.4-10.4); Platelet Count 209 thou/uL (130-400); RBC Distribution Width 14.5 % (11.5-14.5); Red Blood Cell (RBC) Count 3.11 mill/uL (4.70-6.10); White Blood Cell (WBC) Count 3.1 thou/uL (4.8-10.8)
[2020-06-08 07:00] LABS: Band 5 % (5-11); Lymphocytes 23 % (21-51); MDiff Complete? YES; Monocytes 13 % (0-10); Neutrophil 59 % (42-75)
[2020-06-08] MEDS ORDERED: Sodium Chloride 0.45% 1,000 ML IV SCH (08:30)
[2020-06-08] MEDS: Ferrous Fumarate 324 MG TAB PO SCH (08:58)
[2020-06-08] MEDS: Carvedilol 25 MG TAB PO SCH ×2 (08:58→20:28)
[2020-06-08] MEDS: Thiamine 100 MG TAB PO SCH (08:58)
[2020-06-08] MEDS: guaiFENesin ER 600 MG TAB PO SCH ×2 (08:58→20:26)
[2020-06-08] MEDS: Aspirin Chewable 81 MG TAB PO SCH (08:58)
[2020-06-08] MEDS: Zinc Sulfate 220 MG CAP PO SCH (08:58)
[2020-06-08] MEDS: Cholecalciferol (Vitamin D3) 400 UNITS TAB PO SCH (08:58)
[2020-06-08] MEDS: Azelastine 137 MCG/Spray 30 ML NS SCH ×2 (08:59→20:28)
[2020-06-08] MEDS: Clopidogrel Bisulfate 75 MG TAB PO SCH (08:59)
[2020-06-08] MEDS: Amlodipine 10 MG TAB PO SCH (08:59)
[2020-06-08] MEDS: Ascorbic Acid 500 mg Chewable Tablet PO SCH ×2 (08:59→20:26)
[2020-06-08] MEDS: Fluticasone Propionate Nasal Spray 16 gm Bottle NASAL SCH ×2 (09:00→20:28)
[2020-06-08] MEDS ORDERED: Lantus 1000 UNITS/10 ML VIAL SC SCH (09:00)
[2020-06-08] MEDS: Enoxaparin Sodium 40 MG/0.4 ML SYRINGE SC SCH (09:00)
[2020-06-08] MEDS: Lantus 1000 UNITS/10 ML VIAL SC SCH (09:01)
[2020-06-08] MEDS: Mometasone 100 MCG/Formoterol 5 MCG 120 PUFF INHALER INH SCH ×2 (09:55→20:00)
[2020-06-08] MEDS: HumaLOG 300 UNITS/3 ML VIAL SC PRN ×2 (12:22→16:01)
[2020-06-08] MEDS: methylPREDNISolone Sod Succ/PF 110 MG in Sodium Chloride 0.9% 250 ML 250 ML IVPB SCH (15:42)
[2020-06-08] MEDS: Gabapentin 100 MG CAP PO SCH (20:27)
[2020-06-08] MEDS: Atorvastatin Calcium 40 MG TAB PO SCH (20:28)
[2020-06-08] MEDS: Melatonin 3 MG TAB PO SCH (20:28)
[2020-06-09 06:28] LABS: Anion Gap 12 mmol/L (10-20); BUN (Urea Nitrogen) 85 mg/dL (8.4-25.7); CRP (Inflammatory) 2.87 mg/dL (= or < 0.5); Calc. Creatinine Clearance 82 mL/min (70-130); Calcium 7.5 mg/dL (7.8-10.44); Carbon Dioxide 25 mmol/L (23-31); Chloride 117 mmol/L (98-107); Glucose 172 mg/dL (80-115); Potassium 4.1 mmol/L (3.5-5.1); Sodium 150 mmol/L (136-145)
[2020-06-09] MEDS: Mometasone 100 MCG/Formoterol 5 MCG 120 PUFF INHALER INH SCH ×2 (08:35→18:53)
[2020-06-09 10:17] LABS: Hemoglobin 8.9 g/dL (14.0-18.0); Mean Corpuscular HGB CONC 32.2 g/dL (32.0-36.0); Mean Corpuscular Hemoglobin 27.8 pg (27.0-31.0); Mean Corpuscular Volume 86.1 fL (78.0-98.0); Mean Platelet Volume 8.4 fL (7.4-10.4); Platelet Count 189 thou/uL (130-400); RBC Distribution Width 14.2 % (11.5-14.5); White Blood Cell (WBC) Count 4.4 thou/uL (4.8-10.8)
[2020-06-09] MEDS: Sodium Chloride 0.45% 1,000 ML IV SCH (10:17)
[2020-06-09] MEDS: Enoxaparin Sodium 40 MG/0.4 ML SYRINGE SC SCH (11:25)
[2020-06-09] MEDS: Cholecalciferol (Vitamin D3) 400 UNITS TAB PO SCH ×2 (11:26→13:33)
[2020-06-09] MEDS: guaiFENesin ER 600 MG TAB PO SCH ×3 (11:26→20:25)
[2020-06-09] MEDS: Ferrous Fumarate 324 MG TAB PO SCH ×2 (11:26→13:33)
[2020-06-09] MEDS: Zinc Sulfate 220 MG CAP PO SCH ×2 (11:26→13:34)
[2020-06-09] MEDS: Aspirin Chewable 81 MG TAB PO SCH ×2 (11:26→13:33)
[2020-06-09] MEDS: Thiamine 100 MG TAB PO SCH ×2 (11:26→13:33)
[2020-06-09] MEDS: Azelastine 137 MCG/Spray 30 ML NS SCH ×2 (11:27→21:21)
[2020-06-09] MEDS: Carvedilol 25 MG TAB PO SCH ×3 (11:27→21:17)
[2020-06-09] MEDS: Ascorbic Acid 500 mg Chewable Tablet PO SCH ×3 (11:27→21:16)
[2020-06-09] MEDS: Amlodipine 10 MG TAB PO SCH ×2 (11:27→13:33)
[2020-06-09] MEDS: Clopidogrel Bisulfate 75 MG TAB PO SCH ×2 (11:27→13:33)
[2020-06-09] MEDS: Fluticasone Propionate Nasal Spray 16 gm Bottle NASAL SCH ×2 (11:28→21:21)
[2020-06-09] MEDS: Lantus 1000 UNITS/10 ML VIAL SC SCH (11:30)
[2020-06-09 11:37] LABS: Band 14 % (5-11); Lymphocytes 15 % (21-51); MDiff Complete? YES; Monocytes 2 % (0-10); Neutrophil 65 % (42-75); Platelet Morphology Comment Appears Adequate; Polychromasia SLIGHT = 2-3 cells (100X) (0-2/hpf); Reactive Lymphocytes 4 % (0-10)
[2020-06-09] MEDS ORDERED: Propofol 1,000 MG/100 ML VIAL IV ONE (12:58)
[2020-06-09 13:23] LABS: Actual Bicarbonate (HCO3a) 22.5 mEq/L (22-28); Base Excess (BEa) -2.7 mEq/L (-2.0 to +3.0); CO2 Tension 40.5 mmHg (35.0-45.0); Carboxyhemoglobin (COHb) 0.7 gm% (0.0-3.0); Hemoglobin (Hb) 8.6 g/dL (14.0-18.0); O2 Tension (PaO2), arterial 91.9 mmHg (> 80.0); Potassium - ABG Lab 4.35 mmol/L (3.70-5.30); pH, Arterial 7.36 (7.35-7.45)
[2020-06-09 13:28] LABS: ALV-art Gradient 570.475 mmHg (0-20); Puncture Site RRA
[2020-06-09] MEDS ORDERED: Lorazepam 2 MG/ML VIAL ONE (13:48)
[2020-06-09] MEDS: Lorazepam 2 MG/ML VIAL SLOW IVP PRN (14:00)
[2020-06-09 14:37] LABS: Actual Bicarbonate (HCO3v) 20 mEq/L (22-28); Base Excess -5.1 mEq/L (-2.0 to +3.0); Calcium, Ionized (venous) 0.97 mmol/L (1.16-1.32); Chloride (VBG) 120 mmol/L (98-106); Hemoglobin (Hb) 6.2 g/dL (13.1-17.2); Potassium (VBG) 3.45 mmol/L (3.70-5.30); Sodium 157.2 mmol/L (133-146); pH (venous) 7.36 (7.32-7.43)
[2020-06-09] MEDS ORDERED: Fentanyl CADD 100 ML IV SCH (15:00)
[2020-06-09] MEDS ORDERED: Lorazepam 2 MG/ML VIAL SLOW IVP PRN (15:00)
[2020-06-09] MEDS ORDERED: Propofol 1,000 MG/100 ML VIAL IV PRN (15:00)
[2020-06-09] MEDS ORDERED: Propofol BOLUS 1,000 MG/100 ML VIAL IV PRN ×2 (15:00)
[2020-06-09] MEDS ORDERED: Fentanyl BOLUS 250 ML IVPB PRN ×2 (15:00)
[2020-06-09] MEDS ORDERED: DISCONTINUE PREVIOUS NARCOTIC PAIN MEDICATIONS AND BENZODIAZEPINES FS SCH ×2 (15:00)
[2020-06-09] MEDS ORDERED: Morphine 2 MG/ML VIAL SLOW IVP PRN ×2 (15:00)
[2020-06-09] MEDS ORDERED: Fentanyl CADD 100 ML ONE (15:05)
[2020-06-09] MEDS: Fentanyl CADD 100 ML IV SCH (15:09)
[2020-06-09] MEDS: methylPREDNISolone Sod Succ/PF 110 MG in Sodium Chloride 0.9% 250 ML 250 ML IVPB SCH ×2 (15:48→17:56)
[2020-06-09] MEDS: HumaLOG 300 UNITS/3 ML VIAL SC PRN ×2 (18:34→21:18)
[2020-06-09] MEDS ORDERED: Ventilator Sedation Protocol FS ONE (18:56)
[2020-06-09] MEDS ORDERED: Electrolyte Replacement Protocol FS SCH (18:56)
[2020-06-09] MEDS ORDERED: Sodium Chloride 0.45% 1,000 ML IV SCH (19:15)
[2020-06-09] MEDS: Melatonin 3 MG TAB PO SCH (20:25)
[2020-06-09] MEDS: Atorvastatin Calcium 40 MG TAB PO SCH (21:17)
[2020-06-09] MEDS: Gabapentin 100 MG CAP PO SCH (21:17)
[2020-06-10] MEDS: HumaLOG 300 UNITS/3 ML VIAL SC PRN (01:52)
[2020-06-10] MEDS: Propofol 1,000 MG/100 ML VIAL IV PRN ×2 (01:53→16:17)
[2020-06-10 04:51] LABS: Anion Gap 10 mmol/L (10-20); BUN (Urea Nitrogen) 84 mg/dL (8.4-25.7); CRP (Inflammatory) 2.55 mg/dL (= or < 0.5); Calc. Creatinine Clearance 78 mL/min (70-130); Calcium 6.9 mg/dL (7.8-10.44); Carbon Dioxide 25 mmol/L (23-31); Chloride 117 mmol/L (98-107); Glucose 155 mg/dL (80-115); Potassium 3.9 mmol/L (3.5-5.1); Sodium 148 mmol/L (136-145)
[2020-06-10] MEDS: Mometasone 100 MCG/Formoterol 5 MCG 120 PUFF INHALER INH SCH ×2 (07:39→18:36)
[2020-06-10] MEDS: Zinc Sulfate 220 MG CAP PER TUBE SCH (08:53)
[2020-06-10] MEDS: Cholecalciferol (Vitamin D3) 400 UNITS TAB PO SCH (08:53)
[2020-06-10] MEDS: Aspirin Chewable 81 MG TAB PO SCH (08:53)
[2020-06-10] MEDS: guaiFENesin ER 600 MG TAB PO SCH ×2 (08:53→20:45)
[2020-06-10] MEDS: MEROPENEM 1 GM/50 ML 1 GM in Premix Bag 1 BAG IVPB SCH ×2 (08:54→18:06)
[2020-06-10] MEDS: Ascorbic Acid 500 mg Chewable Tablet PER TUBE SCH ×2 (08:54→21:34)
[2020-06-10] MEDS: Thiamine 100 MG TAB PER TUBE SCH (08:54)
[2020-06-10] MEDS: Clopidogrel Bisulfate 75 MG TAB PER TUBE SCH (08:54)
[2020-06-10] MEDS: Enoxaparin Sodium 100 MG/ML SYRINGE SC SCH ×2 (08:54→21:45)
[2020-06-10] MEDS: Azelastine 137 MCG/Spray 30 ML NS SCH ×2 (08:55→20:44)
[2020-06-10] MEDS: Fluticasone Propionate Nasal Spray 16 gm Bottle NASAL SCH ×2 (08:55→20:46)
[2020-06-10] MEDS: Ferrous Fumarate 324 MG TAB PO SCH (08:59)
[2020-06-10] MEDS ORDERED: Famotidine 20 MG TAB PER TUBE SCH (09:00)
[2020-06-10] MEDS ORDERED: Vancomycin 1.5 GRAM/300 ML BAG 1.5 GM in Premix Bag 1 BAG IVPB SCH (09:00)
[2020-06-10] MEDS ORDERED: Fentanyl CADD 100 ML ONE (09:30)
[2020-06-10] MEDS ORDERED: Famotidine/PF 20 mg/2ml Vial SLOW IVP SCH (10:00)
[2020-06-10 10:09] LABS: #Lymphocytes 0.6 thou/uL (1.20-3.40); #Monocytes 0.6 thou/uL (0.11-0.59); #Neutrophils 4.9 thou/uL (1.40-6.50); %Basophils 0.4 % (0.0-1.0); %Eosinophils 0.1 % (0.0-10.0); %Lymphocytes 9.2 % (21.0-51.0); %Monocytes 9.1 % (0.0-10.0); %Neutrophils 81.3 % (42.0-75.0); Hemoglobin 6.8 g/dL (14.0-18.0); Mean Corpuscular HGB CONC 31.4 g/dL (32.0-36.0); Mean Corpuscular Hemoglobin 27.1 pg (27.0-31.0); Mean Corpuscular Volume 86.3 fL (78.0-98.0); Mean Platelet Volume 8.7 fL (7.4-10.4); Platelet Count 185 thou/uL (130-400); RBC Distribution Width 14.5 % (11.5-14.5); Red Blood Cell (RBC) Count 2.52 mill/uL (4.70-6.10)
[2020-06-10] MEDS: Lantus 1000 UNITS/10 ML VIAL SC SCH (10:42)
[2020-06-10] MEDS: Ivermectin 3 MG TAB PO SCH (10:43)
[2020-06-10] MEDS: VANCOMYCIN 1.75 GM/350 ML BAG 1.75 GM in Premix Bag 1 BAG IVPB SCH (10:43)
[2020-06-10 10:49] LABS: CKMB 4.9 ng/mL (0-6.6)
[2020-06-10] MEDS ORDERED: Norepinephrine 8 MG/0.9% NS 250 ML IVPB SCH (12:15)
[2020-06-10 12:33] LABS: INR-International Normal Ratio 1.4; PTT 37.9 sec (22.9-36.1); Prothrombin Time 17.1 sec (12.0-14.7)
[2020-06-10 12:53] LABS: Hemoglobin 6.8 g/dL (14.0-18.0); Mean Corpuscular HGB CONC 32.4 g/dL (32.0-36.0); Mean Corpuscular Hemoglobin 28.1 pg (27.0-31.0); Mean Corpuscular Volume 86.7 fL (78.0-98.0); Mean Platelet Volume 8.5 fL (7.4-10.4); Platelet Count 178 thou/uL (130-400); RBC Distribution Width 14.5 % (11.5-14.5); Red Blood Cell (RBC) Count 2.42 mill/uL (4.70-6.10); White Blood Cell (WBC) Count 8.6 thou/uL (4.8-10.8)
[2020-06-10 13:22] LABS: Band 17 % (5-11); Elliptocytes SLIGHT = 2-5 cells (100X) (0-1/hpf); Lymphocytes 9 % (21-51); MDiff Complete? YES; Monocytes 4 % (0-10); Neutrophil 70 % (42-75); Platelet Morphology Comment Appears Adequate; Poikilocytosis SLIGHT = 6-15 cells (100X) (0-5/hpf); Schistocytes SLIGHT = 2-5 cells (100X) (0-1/hpf); Tear Drops SLIGHT = 2-5 cells (100X) (0-1/hpf)
[2020-06-10] MEDS: methylPREDNISolone Sod Succ/PF 110 MG in Sodium Chloride 0.9% 250 ML 250 ML IVPB SCH (15:51)
[2020-06-10] MEDS: Dextrose 50% Abboject 50 ML SYRINGE SLOW IVP PRN (15:56)
[2020-06-10] MEDS: Dextrose 5 %-0.45 % NaCl 1,000 ML IV SCH (16:42)
[2020-06-10] MEDS: Atorvastatin Calcium 40 MG TAB PER TUBE SCH (21:35)
[2020-06-10] MEDS: Famotidine/PF 20 mg/2ml Vial SLOW IVP SCH (21:35)
[2020-06-11] MEDS: MEROPENEM 1 GM/50 ML 1 GM in Premix Bag 1 BAG IVPB SCH ×3 (01:25→18:32)
[2020-06-11 05:17] LABS: Hemoglobin 7.6 g/dL (14.0-18.0); Mean Corpuscular HGB CONC 32.8 g/dL (32.0-36.0); Mean Corpuscular Hemoglobin 28.7 pg (27.0-31.0); Mean Corpuscular Volume 87.5 fL (78.0-98.0); Mean Platelet Volume 9.2 fL (7.4-10.4); Platelet Count 143 thou/uL (130-400); RBC Distribution Width 14.3 % (11.5-14.5); Red Blood Cell (RBC) Count 2.63 mill/uL (4.70-6.10); White Blood Cell (WBC) Count 15.7 thou/uL (4.8-10.8)
[2020-06-11] MEDS: Dextrose 5 %-0.45 % NaCl 1,000 ML IV SCH (05:24)
[2020-06-11] MEDS: Lorazepam 2 MG/ML VIAL SLOW IVP PRN (05:24)
[2020-06-11 05:30] LABS: Anion Gap 14 mmol/L (10-20); BUN (Urea Nitrogen) 97 mg/dL (8.4-25.7); Calc. Creatinine Clearance 53 mL/min (70-130); Calcium 6.6 mg/dL (7.8-10.44); Carbon Dioxide 20 mmol/L (23-31); Chloride 117 mmol/L (98-107); Glucose 180 mg/dL (80-115); Potassium 3.7 mmol/L (3.5-5.1); Sodium 147 mmol/L (136-145)
[2020-06-11 05:35] LABS: Band 4 % (5-11); Lymphocytes 12 % (21-51); MDiff Complete? YES; Metamyelocyte 1 % (0-0); Monocytes 3 % (0-10); Neutrophil 80 % (42-75); Platelet Morphology Comment Appears Adequate
[2020-06-11] MEDS ORDERED: Fentanyl CADD 100 ML ONE (05:45)
[2020-06-11] MEDS: Fentanyl CADD 100 ML IV SCH (05:49)
[2020-06-11] MEDS ORDERED: Calcium Gluconate 4.6 MEQ in Sodium Chloride 0.9% 100 ML IVPB SCH (07:22)
[2020-06-11] MEDS ORDERED: Acetaminophen 325 MG TAB PER TUBE PRN (07:25)
[2020-06-11] MEDS: Mometasone 100 MCG/Formoterol 5 MCG 120 PUFF INHALER INH SCH ×2 (07:50→19:01)
[2020-06-11] MEDS: Ivermectin 3 MG TAB PO SCH (09:08)
[2020-06-11] MEDS: Thiamine 100 MG TAB PER TUBE SCH (09:09)
[2020-06-11] MEDS: Ascorbic Acid 500 mg Chewable Tablet PER TUBE SCH (09:09)
[2020-06-11] MEDS: Clopidogrel Bisulfate 75 MG TAB PER TUBE SCH (09:09)
[2020-06-11] MEDS: Cholecalciferol (Vitamin D3) 400 UNITS TAB PO SCH (09:09)
[2020-06-11] MEDS: Aspirin Chewable 81 MG TAB PO SCH (09:09)
[2020-06-11] MEDS: Zinc Sulfate 220 MG CAP PER TUBE SCH (09:09)
[2020-06-11] MEDS: Fluticasone Propionate Nasal Spray 16 gm Bottle NASAL SCH ×2 (09:10→21:09)
[2020-06-11] MEDS: Enoxaparin Sodium 100 MG/ML SYRINGE SC SCH ×2 (09:10→21:08)
[2020-06-11] MEDS: guaiFENesin ER 600 MG TAB PO SCH ×2 (09:10→21:09)
[2020-06-11] MEDS: Ferrous Fumarate 324 MG TAB PO SCH (09:10)
[2020-06-11] MEDS: Azelastine 137 MCG/Spray 30 ML NS SCH ×2 (09:10→21:09)
[2020-06-11] MEDS: Famotidine/PF 20 mg/2ml Vial SLOW IVP SCH ×2 (09:10→21:08)
[2020-06-11] MEDS: Lantus 1000 UNITS/10 ML VIAL SC SCH (09:45)
[2020-06-11] MEDS ORDERED: Furosemide 20 MG/2 ML VIAL SLOW IVP SCH (11:45)
[2020-06-11] MEDS: VANCOMYCIN 1.75 GM/350 ML BAG 1.75 GM in Premix Bag 1 BAG IVPB SCH (13:46)
[2020-06-11] MEDS ORDERED: methylPREDNISolone Sod Succ/PF 125 MG/2 ML VIAL IVP SCH (15:00)
[2020-06-11] MEDS: Fluconazole In NaCl,Iso-Osm 200 MG in Premix Bag 1 BAG IVPB SCH (16:09)
[2020-06-11] MEDS: HumaLOG 300 UNITS/3 ML VIAL SC PRN ×2 (16:37→22:38)
[2020-06-11] MEDS: Atorvastatin Calcium 40 MG TAB PER TUBE SCH (21:08)
[2020-06-11] MEDS: Ascorbic Acid 2,000 MG in Sodium Chloride 0.9% 50 ML IVPB SCH (21:08)
[2020-06-11 21:22] LABS: Hemoglobin 9.6 g/dL (14.0-18.0)
[2020-06-12] MEDS: MEROPENEM 1 GM/50 ML 1 GM in Premix Bag 1 BAG IVPB SCH ×3 (00:24→16:36)
[2020-06-12] MEDS: HumaLOG 300 UNITS/3 ML VIAL SC PRN ×6 (00:39→21:58)
[2020-06-12] MEDS ORDERED: Fentanyl CADD 100 ML ONE (02:09)
[2020-06-12 04:57] LABS: Anion Gap 13 mmol/L (10-20); BUN (Urea Nitrogen) 96 mg/dL (8.4-25.7); Calc. Creatinine Clearance 0 mL/min (70-130); Calcium 6.7 mg/dL (7.8-10.44); Carbon Dioxide 23 mmol/L (23-31); Chloride 116 mmol/L (98-107); Glucose 378 mg/dL (80-115); Potassium 3.9 mmol/L (3.5-5.1); Sodium 148 mmol/L (136-145)
[2020-06-12 05:00] LABS: Band 35 % (5-11); Hemoglobin 9.6 g/dL (14.0-18.0); Lymphocytes 7 % (21-51); MDiff Complete? YES; Mean Corpuscular Hemoglobin 29.4 pg (27.0-31.0); Mean Corpuscular Volume 89.1 fL (78.0-98.0); Mean Platelet Volume 9.7 fL (7.4-10.4); Monocytes 10 % (0-10); Neutrophil 48 % (42-75); Platelet Count 120 thou/uL (130-400); Platelet Morphology Comment Appears Adequate; Red Blood Cell (RBC) Count 3.26 mill/uL (4.70-6.10); White Blood Cell (WBC) Count 11.6 thou/uL (4.8-10.8)
[2020-06-12] MEDS ORDERED: Lantus 1000 UNITS/10 ML VIAL SC SCH (06:00)
[2020-06-12] MEDS: Mometasone 100 MCG/Formoterol 5 MCG 120 PUFF INHALER INH SCH ×2 (07:56→18:58)
[2020-06-12] MEDS: Thiamine 100 MG TAB PER TUBE SCH (08:13)
[2020-06-12] MEDS: Clopidogrel Bisulfate 75 MG TAB PER TUBE SCH (08:13)
[2020-06-12] MEDS: Cholecalciferol (Vitamin D3) 400 UNITS TAB PO SCH (08:13)
[2020-06-12] MEDS: guaiFENesin ER 600 MG TAB PO SCH ×2 (08:13→21:38)
[2020-06-12] MEDS: Zinc Sulfate 220 MG CAP PER TUBE SCH (08:14)
[2020-06-12] MEDS: Amlodipine 10 MG TAB PER TUBE SCH (08:14)
[2020-06-12 08:15] LABS: Vancomycin, Trough 21.4 ug/mL
[2020-06-12] MEDS: Aspirin Chewable 81 MG TAB PER TUBE SCH (08:15)
[2020-06-12] MEDS: Ferrous Fumarate 324 MG TAB PO SCH (08:16)
[2020-06-12] MEDS: Enoxaparin Sodium 100 MG/ML SYRINGE SC SCH ×2 (08:16→21:46)
[2020-06-12 08:25] LABS: Actual Bicarbonate (HCO3a) 20.5 mEq/L (22-28); CO2 Tension 34.9 mmHg (35.0-45.0); Calcium, Ionized (arterial) 1.04 mmol/L (1.12-1.30); Carboxyhemoglobin (COHb) 0.5 gm% (0.0-3.0); Hemoglobin (Hb) 10.6 g/dL (14.0-18.0); Potassium - ABG Lab 3.72 mmol/L (3.70-5.30); pH, Arterial 7.39 (7.35-7.45)
[2020-06-12 08:49] LABS: Band 14 % (5-11); Crenated RBC SLIGHT = 1-5 cells (100X) (None Seen); Hemoglobin 9.9 g/dL (14.0-18.0); Lymphocytes 13 % (21-51); MDiff Complete? YES; Mean Corpuscular HGB CONC 32.6 g/dL (32.0-36.0); Mean Corpuscular Hemoglobin 29.2 pg (27.0-31.0); Mean Corpuscular Volume 89.5 fL (78.0-98.0); Mean Platelet Volume 9.6 fL (7.4-10.4); Monocytes 9 % (0-10); Neutrophil 64 % (42-75); Ovalocytes SLIGHT = 2-5 cells (100X) (0-1/hpf); Platelet Count 122 thou/uL (130-400); Platelet Morphology Comment Appears Adequate; Red Blood Cell (RBC) Count 3.38 mill/uL (4.70-6.10); White Blood Cell (WBC) Count 12.2 thou/uL (4.8-10.8)
[2020-06-12] MEDS ORDERED: Furosemide 20 MG/2 ML VIAL SLOW IVP SCH (09:00)
[2020-06-12] MEDS ORDERED: Pantoprazole 40 MG VIAL IVP SCH (09:00)
[2020-06-12] MEDS: Fluticasone Propionate Nasal Spray 16 gm Bottle NASAL SCH (09:15)
[2020-06-12] MEDS: Ascorbic Acid 2,000 MG in Sodium Chloride 0.9% 50 ML IVPB SCH ×2 (09:17→21:55)
[2020-06-12] MEDS: Vancomycin 1.5 GRAM/300 ML BAG 1.5 GM in Premix Bag 1 BAG IVPB SCH (09:18)
[2020-06-12] MEDS: Ivermectin 3 MG TAB PO SCH (09:32)
[2020-06-12 11:00] LABS: ALV-art Gradient 258.875 mmHg (0-20); Puncture Site LRA
[2020-06-12] MEDS: methylPREDNISolone Sod Succ/PF 125 MG/2 ML VIAL IVP SCH ×2 (14:27→21:51)
[2020-06-12] MEDS: Fluconazole In NaCl,Iso-Osm 200 MG in Premix Bag 1 BAG IVPB SCH (14:30)
[2020-06-12] MEDS ORDERED: Carvedilol 25 MG TAB PO SCH (21:00)
[2020-06-12] MEDS: Atorvastatin Calcium 40 MG TAB PER TUBE SCH (21:38)
[2020-06-12] MEDS: Pantoprazole 40 MG VIAL IVP SCH (21:40)
[2020-06-13] MEDS: MEROPENEM 1 GM/50 ML 1 GM in Premix Bag 1 BAG IVPB SCH ×3 (00:40→17:21)
[2020-06-13] MEDS: Fluticasone Propionate Nasal Spray 16 gm Bottle NASAL SCH ×3 (00:41→22:14)
[2020-06-13] MEDS: HumaLOG 300 UNITS/3 ML VIAL SC PRN ×4 (01:36→20:48)
[2020-06-13 05:14] LABS: Anion Gap 15 mmol/L (10-20); BUN (Urea Nitrogen) 103 mg/dL (8.4-25.7); Calc. Creatinine Clearance 62 mL/min (70-130); Calcium 6.8 mg/dL (7.8-10.44); Carbon Dioxide 21 mmol/L (23-31); Chloride 118 mmol/L (98-107); Glucose 174 mg/dL (80-115); Potassium 3.8 mmol/L (3.5-5.1); Sodium 150 mmol/L (136-145)
[2020-06-13] MEDS: methylPREDNISolone Sod Succ/PF 125 MG/2 ML VIAL IVP SCH ×3 (05:19→21:29)
[2020-06-13] MEDS: Mometasone 100 MCG/Formoterol 5 MCG 120 PUFF INHALER INH SCH ×2 (06:56→18:54)
[2020-06-13] MEDS ORDERED: Furosemide 40 MG/4 ML VIAL SLOW IVP SCH (08:15)
[2020-06-13] MEDS: Enoxaparin Sodium 40 MG/0.4 ML SYRINGE SC SCH ×2 (10:31→10:34)
[2020-06-13] MEDS: Aspirin Chewable 81 MG TAB PER TUBE SCH (10:35)
[2020-06-13] MEDS: Ascorbic Acid 500 mg Chewable Tablet PER TUBE SCH ×2 (10:35→20:49)
[2020-06-13] MEDS: Thiamine 100 MG TAB PER TUBE SCH (10:35)
[2020-06-13] MEDS: guaiFENesin ER 600 MG TAB PO SCH ×2 (10:35→20:49)
[2020-06-13] MEDS: Carvedilol 25 MG TAB PO SCH ×3 (10:36→21:33)
[2020-06-13] MEDS: Clopidogrel Bisulfate 75 MG TAB PER TUBE SCH (10:36)
[2020-06-13] MEDS: Zinc Sulfate 220 MG CAP PER TUBE SCH (10:36)
[2020-06-13] MEDS: Amlodipine 10 MG TAB PER TUBE SCH (10:36)
[2020-06-13] MEDS: Cholecalciferol (Vitamin D3) 400 UNITS TAB PO SCH (10:37)
[2020-06-13] MEDS: Ivermectin 3 MG TAB PO SCH (10:38)
[2020-06-13] MEDS: Lantus 1000 UNITS/10 ML VIAL SC SCH (10:39)
[2020-06-13] MEDS: Ferrous Fumarate 324 MG TAB PO SCH (10:48)
[2020-06-13] MEDS: Vancomycin 1.5 GRAM/300 ML BAG 1.5 GM in Premix Bag 1 BAG IVPB SCH (10:49)
[2020-06-13] MEDS: Fluconazole In NaCl,Iso-Osm 200 MG in Premix Bag 1 BAG IVPB SCH (14:36)
[2020-06-13] MEDS ORDERED: Dextrose 5% in Water 1,000 ML IV SCH (15:15)
[2020-06-13] MEDS: Lorazepam 2 MG/ML VIAL SLOW IVP PRN (17:21)
[2020-06-13] MEDS ORDERED: Fentanyl CADD 100 ML ONE (19:23)
[2020-06-13] MEDS: Pantoprazole 40 MG VIAL IVP SCH (20:49)
[2020-06-13] MEDS: Atorvastatin Calcium 40 MG TAB PER TUBE SCH (20:50)
[2020-06-14] MEDS: MEROPENEM 1 GM/50 ML 1 GM in Premix Bag 1 BAG IVPB SCH ×3 (00:19→16:41)
[2020-06-14] MEDS: HumaLOG 300 UNITS/3 ML VIAL SC PRN ×6 (00:38→20:58)
[2020-06-14 04:36] LABS: Anion Gap 18 mmol/L (10-20); BUN (Urea Nitrogen) 120 mg/dL (8.4-25.7); Calc. Creatinine Clearance 56 mL/min (70-130); Calcium 6.6 mg/dL (7.8-10.44); Carbon Dioxide 19 mmol/L (23-31); Chloride 117 mmol/L (98-107); Glucose 385 mg/dL (80-115); Potassium 3.8 mmol/L (3.5-5.1); Sodium 150 mmol/L (136-145)
[2020-06-14] MEDS: methylPREDNISolone Sod Succ/PF 125 MG/2 ML VIAL IVP SCH ×3 (05:04→20:53)
[2020-06-14] MEDS: Mometasone 100 MCG/Formoterol 5 MCG 120 PUFF INHALER INH SCH ×2 (07:25→18:39)
[2020-06-14] MEDS: Sodium Chloride 0.45% 1,000 ML IV SCH ×2 (07:28→09:19)
[2020-06-14] MEDS ORDERED: methylPREDNISolone Sod Succ/PF 125 MG/2 ML VIAL IVP SCH (08:30)
[2020-06-14] MEDS: Ascorbic Acid 500 mg Chewable Tablet PER TUBE SCH ×2 (09:13→21:18)
[2020-06-14] MEDS: Ivermectin 3 MG TAB PO SCH (09:13)
[2020-06-14] MEDS: Zinc Sulfate 220 MG CAP PER TUBE SCH (09:13)
[2020-06-14] MEDS: Carvedilol 25 MG TAB PO SCH ×2 (09:14→20:54)
[2020-06-14] MEDS: Clopidogrel Bisulfate 75 MG TAB PER TUBE SCH (09:14)
[2020-06-14] MEDS: Aspirin Chewable 81 MG TAB PER TUBE SCH (09:14)
[2020-06-14] MEDS: Cholecalciferol (Vitamin D3) 400 UNITS TAB PO SCH (09:14)
[2020-06-14] MEDS: Ferrous Fumarate 324 MG TAB PO SCH (09:15)
[2020-06-14] MEDS: guaiFENesin ER 600 MG TAB PO SCH ×2 (09:15→20:54)
[2020-06-14] MEDS: Amlodipine 10 MG TAB PER TUBE SCH (09:15)
[2020-06-14] MEDS: Thiamine 100 MG TAB PER TUBE SCH (09:15)
[2020-06-14] MEDS: Enoxaparin Sodium 40 MG/0.4 ML SYRINGE SC SCH (09:16)
[2020-06-14] MEDS: Lantus 1000 UNITS/10 ML VIAL SC SCH (09:17)
[2020-06-14] MEDS: Fluticasone Propionate Nasal Spray 16 gm Bottle NASAL SCH ×2 (09:17→20:57)
[2020-06-14] MEDS: Vancomycin 1.5 GRAM/300 ML BAG 1.5 GM in Premix Bag 1 BAG IVPB SCH ×2 (09:23→10:38)
[2020-06-14 10:30] LABS: Vancomycin, Trough 30.9 ug/mL
[2020-06-14] MEDS ORDERED: NPH, Human Insulin Isophane 300 UNIT/3 ML VIAL SC SCH (14:00)
[2020-06-14] MEDS: Fluconazole In NaCl,Iso-Osm 200 MG in Premix Bag 1 BAG IVPB SCH (14:21)
[2020-06-14] MEDS: Lorazepam 2 MG/ML VIAL SLOW IVP PRN (14:47)
[2020-06-14] MEDS ORDERED: Fentanyl CADD 100 ML ONE (17:07)
[2020-06-14] MEDS: Atorvastatin Calcium 40 MG TAB PER TUBE SCH (20:54)
[2020-06-14] MEDS: Pantoprazole 40 MG VIAL IVP SCH (20:54)
[2020-06-15] MEDS: Sodium Chloride 0.45% 1,000 ML IV SCH ×3 (00:46→18:13)
[2020-06-15] MEDS: MEROPENEM 1 GM/50 ML 1 GM in Premix Bag 1 BAG IVPB SCH ×3 (00:46→16:26)
[2020-06-15] MEDS: HumaLOG 300 UNITS/3 ML VIAL SC PRN ×3 (00:48→10:05)
[2020-06-15] MEDS: methylPREDNISolone Sod Succ/PF 125 MG/2 ML VIAL IVP SCH ×3 (05:19→21:31)
[2020-06-15 05:20] LABS: ALT (SGPT) 32 U/L (8-55); AST (SGOT) 29 U/L (5-34); Albumin 2.1 g/dL (3.4-4.8); Alkaline Phosphatase 198 U/L (40-110); Anion Gap 14 mmol/L (10-20); Bilirubin, Total 0.4 mg/dL (0.2-1.2); Calc. Creatinine Clearance 53 mL/min (70-130); Calcium 6.5 mg/dL (7.8-10.44); Carbon Dioxide 22 mmol/L (23-31); Chloride 117 mmol/L (98-107); Globulin 2.9 g/dL (2.4-3.5); Glucose 276 mg/dL (80-115); Potassium 4.2 mmol/L (3.5-5.1); Sodium 149 mmol/L (136-145)
[2020-06-15 05:27] LABS: Hemoglobin 9.4 g/dL (14.0-18.0); Mean Corpuscular Hemoglobin 29.3 pg (27.0-31.0); Mean Corpuscular Volume 88.7 fL (78.0-98.0); Mean Platelet Volume 10.8 fL (7.4-10.4); Platelet Count 126 thou/uL (130-400); RBC Distribution Width 15.7 % (11.5-14.5); Red Blood Cell (RBC) Count 3.21 mill/uL (4.70-6.10)
[2020-06-15 05:28] LABS: Lymphocytes 14 % (21-51); MDiff Complete? YES; Metamyelocyte 1 % (0-0); Monocytes 5 % (0-10); Neutrophil 80 % (42-75); Platelet Morphology Comment Appears Decreased
[2020-06-15 05:32] LABS: BUN (Urea Nitrogen) 130 mg/dL (8.4-25.7)
[2020-06-15] MEDS ORDERED: NPH, Human Insulin Isophane 300 UNIT/3 ML VIAL SC SCH ×3 (06:00→18:00)
[2020-06-15 06:43] LABS: Actual Bicarbonate (HCO3a) 19.9 mEq/L (22-28); CO2 Tension 32.1 mmHg (35.0-45.0); Calcium, Ionized (arterial) 0.98 mmol/L (1.12-1.30); Carboxyhemoglobin (COHb) 0.3 gm% (0.0-3.0); Hemoglobin (Hb) 9.7 g/dL (14.0-18.0); O2 Tension (PaO2), arterial 68.8 mmHg (> 80.0); Potassium - ABG Lab 4.02 mmol/L (3.70-5.30); pH, Arterial 7.41 (7.35-7.45)
[2020-06-15 06:46] LABS: ALV-art Gradient 211.925 mmHg (0-20); Puncture Site RRA
[2020-06-15] MEDS: Mometasone 100 MCG/Formoterol 5 MCG 120 PUFF INHALER INH SCH ×2 (06:58→18:56)
[2020-06-15] MEDS: guaiFENesin ER 600 MG TAB PO SCH ×2 (09:54→21:00)
[2020-06-15] MEDS: Carvedilol 25 MG TAB PO SCH ×2 (09:54→21:31)
[2020-06-15] MEDS: Zinc Sulfate 220 MG CAP PER TUBE SCH (09:54)
[2020-06-15] MEDS: Aspirin Chewable 81 MG TAB PER TUBE SCH (09:54)
[2020-06-15] MEDS: Enoxaparin Sodium 40 MG/0.4 ML SYRINGE SC SCH (09:54)
[2020-06-15] MEDS: Clopidogrel Bisulfate 75 MG TAB PER TUBE SCH (09:54)
[2020-06-15] MEDS: Amlodipine 10 MG TAB PER TUBE SCH (09:54)
[2020-06-15] MEDS: Cholecalciferol (Vitamin D3) 400 UNITS TAB PO SCH (09:54)
[2020-06-15] MEDS: Thiamine 100 MG TAB PER TUBE SCH (09:55)
[2020-06-15] MEDS: Fluticasone Propionate Nasal Spray 16 gm Bottle NASAL SCH (09:55)
[2020-06-15] MEDS: Ivermectin 3 MG TAB PO SCH (09:56)
[2020-06-15] MEDS: Ascorbic Acid 500 mg Chewable Tablet PER TUBE SCH ×2 (10:28→21:29)
[2020-06-15] MEDS: Ferrous Fumarate 324 MG TAB PO SCH (10:29)
[2020-06-15 10:33] LABS: Vancomycin, Random 24.8 ug/mL (See Comment)
[2020-06-15] MEDS ORDERED: VANCOMYCIN 1.25 GM/250 ML BAG 1.25 GM in Premix Bag 1 BAG IVPB SCH (11:00)
[2020-06-15] MEDS: Fluconazole In NaCl,Iso-Osm 200 MG in Premix Bag 1 BAG IVPB SCH (13:46)
[2020-06-15] MEDS: NPH, Human Insulin Isophane 300 UNIT/3 ML VIAL SC SCH (17:39)
[2020-06-15] MEDS: Atorvastatin Calcium 40 MG TAB PER TUBE SCH (21:29)
[2020-06-15] MEDS: Melatonin 3 MG TAB PER TUBE SCH (21:29)
[2020-06-15] MEDS: Gabapentin 100 MG CAP PO SCH (21:30)
[2020-06-15] MEDS: Pantoprazole 40 MG VIAL IVP SCH (21:31)
[2020-06-16] MEDS: MEROPENEM 1 GM/50 ML 1 GM in Premix Bag 1 BAG IVPB SCH ×2 (02:48→09:15)
[2020-06-16 04:25] LABS: Anion Gap 18 mmol/L (10-20); Calc. Creatinine Clearance 48 mL/min (70-130); Calcium 6.7 mg/dL (7.8-10.44); Carbon Dioxide 20 mmol/L (23-31); Chloride 115 mmol/L (98-107); Glucose 159 mg/dL (80-115); Potassium 4.5 mmol/L (3.5-5.1); Sodium 148 mmol/L (136-145)
[2020-06-16 04:38] LABS: BUN (Urea Nitrogen) 141 mg/dL (8.4-25.7)
[2020-06-16] MEDS: NPH, Human Insulin Isophane 300 UNIT/3 ML VIAL SC SCH ×2 (05:54→16:39)
[2020-06-16] MEDS: methylPREDNISolone Sod Succ/PF 125 MG/2 ML VIAL IVP SCH ×4 (05:54→21:44)
[2020-06-16] MEDS: HumaLOG 300 UNITS/3 ML VIAL SC PRN ×4 (05:55→21:14)
[2020-06-16 06:06] LABS: Actual Bicarbonate (HCO3a) 19.5 mEq/L (22-28); Base Excess (BEa) -4.2 mEq/L (-2.0 to +3.0); CO2 Tension 30.6 mmHg (35.0-45.0); Carboxyhemoglobin (COHb) 0.1 gm% (0.0-3.0); Hemoglobin (Hb) 9.2 g/dL (14.0-18.0); O2 Tension (PaO2), arterial 71.3 mmHg (> 80.0); pH, Arterial 7.42 (7.35-7.45)
[2020-06-16 06:07] LABS: Puncture Site RRA
[2020-06-16 06:08] LABS: Peep/CPAP 7.5 cmH2O
[2020-06-16 06:54] LABS: #Lymphocytes 0.8 thou/uL (1.20-3.40); #Monocytes 0.5 thou/uL (0.11-0.59); #Neutrophils 5.8 thou/uL (1.40-6.50); %Basophils 0.6 % (0.0-1.0); %Eosinophils 0.1 % (0.0-10.0); %Lymphocytes 11.9 % (21.0-51.0); %Monocytes 6.3 % (0.0-10.0); %Neutrophils 81.1 % (42.0-75.0); Hemoglobin 8.3 g/dL (14.0-18.0); Mean Corpuscular HGB CONC 33.4 g/dL (32.0-36.0); Mean Corpuscular Hemoglobin 29.5 pg (27.0-31.0); Mean Corpuscular Volume 88.5 fL (78.0-98.0); Mean Platelet Volume 10.5 fL (7.4-10.4); Platelet Count 131 thou/uL (130-400); RBC Distribution Width 15.8 % (11.5-14.5); Red Blood Cell (RBC) Count 2.81 mill/uL (4.70-6.10); White Blood Cell (WBC) Count 7.1 thou/uL (4.8-10.8)
[2020-06-16] MEDS: Mometasone 100 MCG/Formoterol 5 MCG 120 PUFF INHALER INH SCH ×2 (07:13→18:47)
[2020-06-16] MEDS: Enoxaparin Sodium 40 MG/0.4 ML SYRINGE SC SCH (07:28)
[2020-06-16] MEDS: Amlodipine 10 MG TAB PER TUBE SCH (07:28)
[2020-06-16] MEDS: Ascorbic Acid 500 mg Chewable Tablet PER TUBE SCH ×2 (07:29→21:01)
[2020-06-16] MEDS: Ivermectin 3 MG TAB PO SCH (07:29)
[2020-06-16] MEDS: Aspirin Chewable 81 MG TAB PER TUBE SCH (07:29)
[2020-06-16] MEDS: Cholecalciferol (Vitamin D3) 400 UNITS TAB PO SCH (07:29)
[2020-06-16] MEDS: Clopidogrel Bisulfate 75 MG TAB PER TUBE SCH (07:30)
[2020-06-16] MEDS: guaiFENesin ER 600 MG TAB PO SCH ×2 (07:30→21:13)
[2020-06-16] MEDS: Zinc Sulfate 220 MG CAP PER TUBE SCH (07:30)
[2020-06-16] MEDS: Thiamine 100 MG TAB PER TUBE SCH (07:30)
[2020-06-16] MEDS: Ferrous Fumarate 324 MG TAB PO SCH (07:30)
[2020-06-16] MEDS: Carvedilol 25 MG TAB PO SCH ×2 (07:31→21:02)
[2020-06-16] MEDS: Sodium Chloride 0.45% 1,000 ML IV SCH (07:53)
[2020-06-16] MEDS ORDERED: Fentanyl CADD 100 ML ONE (09:24)
[2020-06-16] MEDS: Fentanyl CADD 100 ML IV SCH (09:25)
[2020-06-16] MEDS ORDERED: Labetalol HCl 100 MG/20 ML VIAL SLOW IVP PRN (09:49)
[2020-06-16] MEDS ORDERED: hydrALAZINE 20 MG/ML VIAL SLOW IVP PRN (11:13)
[2020-06-16 13:41] LABS: Albumin 1.9 g/dL (3.4-4.8); Phosphorus 5.5 mg/dL (2.3-4.7)
[2020-06-16 14:42] LABS: Bilirubin Negative (Negative); Blood, Urine 3+ (Negative); Clarity Turbid (Clear); Glucose, Urine (Dipstick) Normal (Negative); Ketone, Urine Negative (Negative); Leukocyte 250 Leu/uL (Negative); Nitrite Negative (Negative); Protein, Urine (Dipstick) 30 mg/dL (Neg-Trace); RBC/HPF Greater than 50 HPF (0-3); Specific Gravity, Urine 1.019 (1.002-1.036); Squamous Epithelial 0-3 HPF (0-3); Urobilinogen Normal mg/dL (Less than 2)
[2020-06-16 14:50] LABS: Bacteria/HPF Rare-Few HPF (None Seen); Yeast-Budding 1+ HPF (None Seen)
[2020-06-16 14:51] LABS: Urine Culture Reflex Yes Yes
[2020-06-16 14:55] LABS: Creatinine, Urine 74.01 mg/dL (63-166)
[2020-06-16] MEDS: Albumin 25% 25 GM/100 ML BOT IVPB SCH ×2 (15:28→21:00)
[2020-06-16] MEDS: Pantoprazole 40 MG VIAL IVP SCH (21:01)
[2020-06-16] MEDS: Melatonin 3 MG TAB PER TUBE SCH (21:02)
[2020-06-16] MEDS: Atorvastatin Calcium 40 MG TAB PER TUBE SCH (21:02)
[2020-06-16] MEDS: Gabapentin 100 MG CAP PO SCH (21:03)
[2020-06-17] MEDS: HumaLOG 300 UNITS/3 ML VIAL SC PRN ×2 (04:15→09:02)
[2020-06-17 04:52] LABS: Hemoglobin 7.2 g/dL (14.0-18.0); Lymphocytes 12 % (21-51); MDiff Complete? YES; Mean Corpuscular HGB CONC 33.7 g/dL (32.0-36.0); Mean Corpuscular Hemoglobin 29.4 pg (27.0-31.0); Mean Corpuscular Volume 87.3 fL (78.0-98.0); Mean Platelet Volume 10.8 fL (7.4-10.4); Monocytes 5 % (0-10); Neutrophil 83 % (42-75); Platelet Count 130 thou/uL (130-400); Platelet Morphology Comment Appears Adequate; RBC Distribution Width 15.7 % (11.5-14.5); Red Blood Cell (RBC) Count 2.44 mill/uL (4.70-6.10); White Blood Cell (WBC) Count 6.7 thou/uL (4.8-10.8)
[2020-06-17 04:54] LABS: Anion Gap 17 mmol/L (10-20); Calc. Creatinine Clearance 47 mL/min (70-130); Calcium 6.7 mg/dL (7.8-10.44); Carbon Dioxide 20 mmol/L (23-31); Chloride 114 mmol/L (98-107); Glucose 275 mg/dL (80-115); Potassium 4.6 mmol/L (3.5-5.1); Sodium 146 mmol/L (136-145)
[2020-06-17 05:05] LABS: BUN (Urea Nitrogen) 165 mg/dL (8.4-25.7)
[2020-06-17] MEDS: Albumin 25% 25 GM/100 ML BOT IVPB SCH ×3 (05:19→15:47)
[2020-06-17] MEDS: methylPREDNISolone Sod Succ/PF 125 MG/2 ML VIAL IVP SCH ×2 (05:20→13:09)
[2020-06-17] MEDS: NPH, Human Insulin Isophane 300 UNIT/3 ML VIAL SC SCH ×2 (05:21→18:02)
[2020-06-17] MEDS: Mometasone 100 MCG/Formoterol 5 MCG 120 PUFF INHALER INH SCH ×2 (06:55→18:35)
[2020-06-17 06:59] LABS: Actual Bicarbonate (HCO3a) 18.5 mEq/L (22-28); Base Excess (BEa) -5.4 mEq/L (-2.0 to +3.0); CO2 Tension 29.3 mmHg (35.0-45.0); Calcium, Ionized (arterial) 0.99 mmol/L (1.12-1.30); Carboxyhemoglobin (COHb) 0.5 gm% (0.0-3.0); Hemoglobin (Hb) 7.2 g/dL (14.0-18.0); Potassium - ABG Lab 4.42 mmol/L (3.70-5.30); pH, Arterial 7.42 (7.35-7.45)
[2020-06-17 07:01] LABS: ALV-art Gradient 265.675 mmHg (0-20); O2 Tension (PaO2), arterial 54.2 mmHg (> 80.0); Puncture Site RRA
[2020-06-17] MEDS: Thiamine 100 MG TAB PER TUBE SCH (08:51)
[2020-06-17] MEDS: Ascorbic Acid 500 mg Chewable Tablet PER TUBE SCH ×2 (08:51→20:42)
[2020-06-17] MEDS: Zinc Sulfate 220 MG CAP PER TUBE SCH (08:51)
[2020-06-17] MEDS: Clopidogrel Bisulfate 75 MG TAB PER TUBE SCH (08:51)
[2020-06-17] MEDS: Aspirin Chewable 81 MG TAB PER TUBE SCH (08:52)
[2020-06-17] MEDS: Ivermectin 3 MG TAB PO SCH (08:52)
[2020-06-17] MEDS: Ferrous Fumarate 324 MG TAB PO SCH (08:52)
[2020-06-17] MEDS: guaiFENesin ER 600 MG TAB PO SCH ×2 (08:52→20:41)
[2020-06-17] MEDS: Cholecalciferol (Vitamin D3) 400 UNITS TAB PO SCH (08:52)
[2020-06-17] MEDS: Carvedilol 25 MG TAB PO SCH ×2 (08:54→20:43)
[2020-06-17] MEDS ORDERED: Enoxaparin Sodium 30 MG/0.3 ML SYRINGE SC SCH (09:00)
[2020-06-17] MEDS: Lorazepam 2 MG/ML VIAL SLOW IVP PRN (09:49)
[2020-06-17 10:04] LABS: HBSAg Index 0.21 S/CO (0-0.99); Hep B Surf Ag Non-Reactive S/CO (NonReactive)
[2020-06-17] MEDS ORDERED: Propofol 1,000 MG/100 ML VIAL IV ONE (10:23)
[2020-06-17] MEDS: Propofol 1,000 MG/100 ML VIAL IV PRN ×3 (10:28→22:02)
[2020-06-17] MEDS ORDERED: Norepinephrine 8 MG/0.9% NS 250 ML IVPB SCH (10:30)
[2020-06-17 11:47] LABS: HBSAB Concentration Less than 8.00 mIU/mL; Hep B Core Total Ab Non-Reactive (NonReactive); Hep B Core Total Index 0.41 S/CO (0-0.79); Hep B Surf AB Non-Reactive (NonReactive); Hep B Surf Ag Non-Reactive S/CO (NonReactive); Hep C IgG Ab Non-Reactive (NonReactive); Hep C Index 0.31 S/CO (0-0.79)
[2020-06-17] MEDS ORDERED: Heparin 10,000 UNITS/ 10 ML VIAL ONE (11:52)
[2020-06-17] MEDS ORDERED: Labetalol HCl 100 MG/20 ML VIAL ONE (15:43)
[2020-06-17] MEDS: Gabapentin 100 MG CAP PO SCH (20:42)
[2020-06-17] MEDS: Melatonin 3 MG TAB PER TUBE SCH (20:42)
[2020-06-17] MEDS: Atorvastatin Calcium 40 MG TAB PER TUBE SCH (20:43)
[2020-06-17] MEDS ORDERED: Pantoprazole 40 MG GRANULES PACKET PER TUBE SCH (21:00)
[2020-06-18] MEDS ORDERED: Pantoprazole 40 MG VIAL IVP SCH (04:00)
[2020-06-18 04:46] LABS: #Lymphocytes 2.3 thou/uL (1.20-3.40); #Monocytes 1.4 thou/uL (0.11-0.59); %Basophils 0.1 % (0.0-1.0); %Eosinophils 0.1 % (0.0-10.0); %Lymphocytes 13.9 % (21.0-51.0); %Monocytes 8.3 % (0.0-10.0); %Neutrophils 77.6 % (42.0-75.0); Hemoglobin 6.3 g/dL (14.0-18.0); Mean Corpuscular HGB CONC 33.7 g/dL (32.0-36.0); Mean Corpuscular Hemoglobin 29.5 pg (27.0-31.0); Mean Corpuscular Volume 87.5 fL (78.0-98.0); Mean Platelet Volume 10.5 fL (7.4-10.4); Platelet Count 135 thou/uL (130-400); RBC Distribution Width 15.2 % (11.5-14.5); Red Blood Cell (RBC) Count 2.14 mill/uL (4.70-6.10); White Blood Cell (WBC) Count 16.8 thou/uL (4.8-10.8)
[2020-06-18 04:57] LABS: Anion Gap 20 mmol/L (10-20); Calc. Creatinine Clearance 50 mL/min (70-130); Calcium 6.8 mg/dL (7.8-10.44); Carbon Dioxide 19 mmol/L (23-31); Chloride 112 mmol/L (98-107); Glucose 127 mg/dL (80-115); Potassium 4.7 mmol/L (3.5-5.1); Sodium 146 mmol/L (136-145)
[2020-06-18 05:00] LABS: Iron 91 ug/dL (65-175); Iron Binding Capacity, Total 118 mcg/dL (261-462)
[2020-06-18 05:11] LABS: BUN (Urea Nitrogen) 161 mg/dL (8.4-25.7)
[2020-06-18] MEDS ORDERED: Fentanyl CADD 0 ML ONE (06:01)
[2020-06-18] MEDS: Propofol 1,000 MG/100 ML VIAL IV PRN ×3 (06:07→22:32)
[2020-06-18] MEDS: NPH, Human Insulin Isophane 300 UNIT/3 ML VIAL SC SCH ×2 (06:08→18:35)
[2020-06-18] MEDS: methylPREDNISolone Sod Succ/PF 125 MG/2 ML VIAL IVP SCH ×3 (06:12→21:19)
[2020-06-18] MEDS ORDERED: Fentanyl CADD 100 ML ONE ×2 (06:46→08:45)
[2020-06-18 06:55] LABS: Actual Bicarbonate (HCO3a) 21.7 mEq/L (22-28); Base Excess (BEa) -3.3 mEq/L (-2.0 to +3.0); CO2 Tension 38.2 mmHg (35.0-45.0); Calcium, Ionized (arterial) 0.98 mmol/L (1.12-1.30); Carboxyhemoglobin (COHb) 1.3 gm% (0.0-3.0); O2 Tension (PaO2), arterial 66.8 mmHg (> 80.0); Potassium - ABG Lab 4.55 mmol/L (3.70-5.30); pH, Arterial 7.37 (7.35-7.45)
[2020-06-18] MEDS: Mometasone 100 MCG/Formoterol 5 MCG 120 PUFF INHALER INH SCH ×2 (07:22→18:54)
[2020-06-18 07:24] LABS: Puncture Site RRA
[2020-06-18] MEDS: Clopidogrel Bisulfate 75 MG TAB PER TUBE SCH (09:00)
[2020-06-18] MEDS ORDERED: Ivermectin 3 MG TAB PO SCH (09:00)
[2020-06-18 09:55] LABS: INR-International Normal Ratio 1.3; Prothrombin Time 16.2 sec (12.0-14.7)
[2020-06-18 09:56] LABS: PTT 34.5 sec (22.9-36.1)
[2020-06-18] MEDS: Ascorbic Acid 500 mg Chewable Tablet PER TUBE SCH ×2 (10:00→21:12)
[2020-06-18] MEDS: Zinc Sulfate 220 MG CAP PER TUBE SCH (10:00)
[2020-06-18] MEDS: Thiamine 100 MG TAB PER TUBE SCH (10:01)
[2020-06-18] MEDS: Cholecalciferol (Vitamin D3) 400 UNITS TAB PO SCH (10:01)
[2020-06-18] MEDS: guaiFENesin ER 600 MG TAB PO SCH ×2 (10:01→21:13)
[2020-06-18] MEDS: Ferrous Fumarate 324 MG TAB PO SCH (10:38)
[2020-06-18] MEDS: Pantoprazole 40 MG VIAL IVP SCH ×2 (10:52→21:13)
[2020-06-18] MEDS ORDERED: Heparin 10,000 UNITS/ 10 ML VIAL ONE (10:59)
[2020-06-18] MEDS ORDERED: EPOETIN ALFA-EPBX (ESRD) 10,000 UNIT/ML VIAL SC SCH (12:45)
[2020-06-18] MEDS ORDERED: Albumin 25% 25 GM/100 ML BOT IVPB SCH (15:30)
[2020-06-18] MEDS: HumaLOG 300 UNITS/3 ML VIAL SC PRN ×3 (15:33→21:21)
[2020-06-18 20:48] LABS: Hemoglobin 7.5 g/dL (14.0-18.0)
[2020-06-18] MEDS: Melatonin 3 MG TAB PER TUBE SCH (21:12)
[2020-06-18] MEDS: Atorvastatin Calcium 40 MG TAB PER TUBE SCH (21:13)
[2020-06-19 01:36] LABS: Hemoglobin 6.7 g/dL (14.0-18.0)
[2020-06-19 04:06] LABS: INR-International Normal Ratio 1.3; PTT 37.5 sec (22.9-36.1); Prothrombin Time 16.4 sec (12.0-14.7)
[2020-06-19 04:20] LABS: Hemoglobin 5.8 g/dL (14.0-18.0); Mean Corpuscular HGB CONC 34.4 g/dL (32.0-36.0); Mean Corpuscular Hemoglobin 29.5 pg (27.0-31.0); Mean Corpuscular Volume 85.6 fL (78.0-98.0); Mean Platelet Volume 10.1 fL (7.4-10.4); Platelet Count 114 thou/uL (130-400); RBC Distribution Width 14.6 % (11.5-14.5); Red Blood Cell (RBC) Count 1.96 mill/uL (4.70-6.10)
[2020-06-19 04:36] LABS: Anion Gap 17 mmol/L (10-20); BUN (Urea Nitrogen) 124 mg/dL (8.4-25.7); Calc. Creatinine Clearance 66 mL/min (70-130); Calcium 5.7 mg/dL (7.8-10.44); Carbon Dioxide 17 mmol/L (23-31); Chloride 117 mmol/L (98-107); Glucose 143 mg/dL (80-115); Sodium 147 mmol/L (136-145)
[2020-06-19 04:45] LABS: #Lymphocytes 1.8 thou/uL (1.20-3.40); #Monocytes 0.7 thou/uL (0.11-0.59); #Neutrophils 16.5 thou/uL (1.40-6.50); %Basophils 0.1 % (0.0-1.0); %Eosinophils 0.2 % (0.0-10.0); %Lymphocytes 9.2 % (21.0-51.0); %Monocytes 3.7 % (0.0-10.0); %Neutrophils 86.7 % (42.0-75.0); Platelet Morphology Comment Appears Decreased
[2020-06-19] MEDS: NPH, Human Insulin Isophane 300 UNIT/3 ML VIAL SC SCH ×2 (06:30→18:34)
[2020-06-19] MEDS: methylPREDNISolone Sod Succ/PF 125 MG/2 ML VIAL IVP SCH ×3 (06:30→21:28)
[2020-06-19 06:59] LABS: Actual Bicarbonate (HCO3a) 23.7 mEq/L (22-28); Base Excess (BEa) 0.4 mEq/L (-2.0 to +3.0); CO2 Tension 32.2 mmHg (35.0-45.0); Calcium, Ionized (arterial) 0.96 mmol/L (1.12-1.30); Carboxyhemoglobin (COHb) 0.2 gm% (0.0-3.0); Hemoglobin (Hb) 7.2 g/dL (14.0-18.0); O2 Tension (PaO2), arterial 116.9 mmHg (> 80.0); Potassium - ABG Lab 4.69 mmol/L (3.70-5.30); pH, Arterial 7.49 (7.35-7.45)
[2020-06-19] MEDS: Mometasone 100 MCG/Formoterol 5 MCG 120 PUFF INHALER INH SCH ×2 (07:05→19:11)
[2020-06-19 07:08] LABS: Puncture Site RRA
[2020-06-19 07:18] LABS: ALT (SGPT) 18 U/L (8-55); AST (SGOT) 28 U/L (5-34); Albumin 2.1 g/dL (3.4-4.8); Alkaline Phosphatase 102 U/L (40-110); Bilirubin, Direct 0.4 mg/dL (0.1-0.3); Bilirubin, Total 0.6 mg/dL (0.2-1.2); Protein, Total 3.6 g/dL (5.8-8.1)
[2020-06-19] MEDS: Amlodipine 10 MG TAB PER TUBE SCH (09:00)
[2020-06-19] MEDS: guaiFENesin ER 600 MG TAB PO SCH ×2 (09:53→21:09)
[2020-06-19] MEDS: Pantoprazole 40 MG VIAL IVP SCH ×2 (09:53→21:28)
[2020-06-19] MEDS: Zinc Sulfate 220 MG CAP PER TUBE SCH (09:53)
[2020-06-19] MEDS: Thiamine 100 MG TAB PER TUBE SCH (09:53)
[2020-06-19] MEDS: Ascorbic Acid 500 mg Chewable Tablet PER TUBE SCH ×2 (09:53→21:09)
[2020-06-19] MEDS: Cholecalciferol (Vitamin D3) 400 UNITS TAB PO SCH (09:53)
[2020-06-19] MEDS: Fluconazole In NaCl,Iso-Osm 400 MG in Premix Bag 1 BAG IVPB SCH ×2 (09:59→12:23)
[2020-06-19] MEDS: HumaLOG 300 UNITS/3 ML VIAL SC PRN ×2 (11:49→15:39)
[2020-06-19] MEDS: Propofol 1,000 MG/100 ML VIAL IV PRN ×2 (12:41→18:43)
[2020-06-19 15:46] LABS: Mean Corpuscular HGB CONC 35.4 g/dL (32.0-36.0); Mean Corpuscular Hemoglobin 30.7 pg (27.0-31.0); Mean Corpuscular Volume 86.7 fL (78.0-98.0); Mean Platelet Volume 10.1 fL (7.4-10.4); Platelet Count 113 thou/uL (130-400); RBC Distribution Width 14.7 % (11.5-14.5); Red Blood Cell (RBC) Count 2.59 mill/uL (4.70-6.10); White Blood Cell (WBC) Count 20.2 thou/uL (4.8-10.8)
[2020-06-19] MEDS: Albumin 25% 25 GM/100 ML BOT IVPB SCH (18:37)
[2020-06-19] MEDS ORDERED: Fentanyl CADD 100 ML ONE (20:56)
[2020-06-19] MEDS: Atorvastatin Calcium 40 MG TAB PER TUBE SCH (21:09)
[2020-06-19] MEDS: Melatonin 3 MG TAB PER TUBE SCH (21:09)
[2020-06-20 00:22] LABS: #Basophils 0.1 thou/uL (0.0-0.2); #Lymphocytes 1.8 thou/uL (1.20-3.40); #Monocytes 0.6 thou/uL (0.11-0.59); #Neutrophils 16.2 thou/uL (1.40-6.50); %Basophils 0.4 % (0.0-1.0); %Eosinophils 0.2 % (0.0-10.0); %Lymphocytes 9.7 % (21.0-51.0); %Neutrophils 86.7 % (42.0-75.0); Hemoglobin 7.5 g/dL (14.0-18.0); Mean Corpuscular Hemoglobin 30.5 pg (27.0-31.0); Mean Corpuscular Volume 87.1 fL (78.0-98.0); Mean Platelet Volume 9.6 fL (7.4-10.4); Platelet Count 104 thou/uL (130-400); RBC Distribution Width 14.7 % (11.5-14.5); Red Blood Cell (RBC) Count 2.47 mill/uL (4.70-6.10); White Blood Cell (WBC) Count 18.6 thou/uL (4.8-10.8)
[2020-06-20] MEDS ORDERED: Metoprolol Tartrate 5 MG/5 ML VIAL IVP SCH ×2 (00:45→01:15)
[2020-06-20 00:55] LABS: Anion Gap 14 mmol/L (10-20); BUN (Urea Nitrogen) 88 mg/dL (8.4-25.7); Calc. Creatinine Clearance 79 mL/min (70-130); Calcium 7.4 mg/dL (7.8-10.44); Carbon Dioxide 28 mmol/L (23-31); Chloride 106 mmol/L (98-107); Glucose 149 mg/dL (80-115); Magnesium 2.1 mg/dL (1.6-2.6); Phosphorus 4.7 mg/dL (2.3-4.7); Potassium 4.4 mmol/L (3.5-5.1); Sodium 144 mmol/L (136-145)
[2020-06-20 01:08] LABS: Troponin I 0.879 ng/mL (< 0.028)
[2020-06-20] MEDS: Propofol 1,000 MG/100 ML VIAL IV PRN ×3 (04:00→18:13)
[2020-06-20 04:17] LABS: INR-International Normal Ratio 1.1; Prothrombin Time 14.5 sec (12.0-14.7)
[2020-06-20 04:18] LABS: PTT 33.1 sec (22.9-36.1)
[2020-06-20 04:25] LABS: Anion Gap 14 mmol/L (10-20); BUN (Urea Nitrogen) 93 mg/dL (8.4-25.7); Calc. Creatinine Clearance 73 mL/min (70-130); Calcium 7.3 mg/dL (7.8-10.44); Carbon Dioxide 27 mmol/L (23-31); Chloride 105 mmol/L (98-107); Glucose 146 mg/dL (80-115); Potassium 4.4 mmol/L (3.5-5.1); Sodium 142 mmol/L (136-145)
[2020-06-20 04:46] LABS: #Basophils 0.1 thou/uL (0.0-0.2); #Lymphocytes 1.9 thou/uL (1.20-3.40); #Monocytes 0.7 thou/uL (0.11-0.59); #Neutrophils 16.9 thou/uL (1.40-6.50); %Basophils 0.3 % (0.0-1.0); %Eosinophils 0.2 % (0.0-10.0); %Lymphocytes 9.5 % (21.0-51.0); %Monocytes 3.7 % (0.0-10.0); %Neutrophils 86.3 % (42.0-75.0); Hemoglobin 7.3 g/dL (14.0-18.0); Mean Corpuscular HGB CONC 34.6 g/dL (32.0-36.0); Mean Corpuscular Hemoglobin 30.1 pg (27.0-31.0); Mean Corpuscular Volume 87.1 fL (78.0-98.0); Mean Platelet Volume 10.2 fL (7.4-10.4); Platelet Count 114 thou/uL (130-400); RBC Distribution Width 14.8 % (11.5-14.5); Red Blood Cell (RBC) Count 2.43 mill/uL (4.70-6.10); White Blood Cell (WBC) Count 19.6 thou/uL (4.8-10.8)
[2020-06-20 05:31] LABS: Critical Call Chem Troponin I RESULT DECREASING; Troponin I 0.746 ng/mL (< 0.028)
[2020-06-20] MEDS: methylPREDNISolone Sod Succ/PF 125 MG/2 ML VIAL IVP SCH (05:40)
[2020-06-20 07:15] LABS: Actual Bicarbonate (HCO3a) 24.9 mEq/L (22-28); Base Excess (BEa) 0.9 mEq/L (-2.0 to +3.0); CO2 Tension 36.5 mmHg (35.0-45.0); Calcium, Ionized (arterial) 0.98 mmol/L (1.12-1.30); Carboxyhemoglobin (COHb) 1.4 gm% (0.0-3.0); Hemoglobin (Hb) 7.4 g/dL (14.0-18.0); O2 Tension (PaO2), arterial 92.9 mmHg (> 80.0); Potassium - ABG Lab 4.28 mmol/L (3.70-5.30); pH, Arterial 7.45 (7.35-7.45)
[2020-06-20 07:32] LABS: ALV-art Gradient 217.975 mmHg (0-20); Puncture Site RRA
[2020-06-20] MEDS: Mometasone 100 MCG/Formoterol 5 MCG 120 PUFF INHALER INH SCH ×2 (07:33→18:39)
[2020-06-20] MEDS: Pantoprazole 40 MG VIAL IVP SCH ×2 (09:57→20:39)
[2020-06-20] MEDS: Fluconazole In NaCl,Iso-Osm 400 MG in Premix Bag 1 BAG IVPB SCH (09:58)
[2020-06-20] MEDS: Zinc Sulfate 220 MG CAP PER TUBE SCH (09:59)
[2020-06-20] MEDS: guaiFENesin ER 600 MG TAB PO SCH ×2 (09:59→20:26)
[2020-06-20] MEDS: NPH, Human Insulin Isophane 300 UNIT/3 ML VIAL SC SCH ×2 (09:59→18:22)
[2020-06-20] MEDS: Thiamine 100 MG TAB PER TUBE SCH (09:59)
[2020-06-20] MEDS: Cholecalciferol (Vitamin D3) 400 UNITS TAB PO SCH (09:59)
[2020-06-20] MEDS: Ascorbic Acid 500 mg Chewable Tablet PER TUBE SCH ×2 (09:59→20:26)
[2020-06-20] MEDS ORDERED: Bacteriostatic Water 30 ML VIAL FS PRN (11:00)
[2020-06-20] MEDS ORDERED: Heparin 10,000 UNITS/ 10 ML VIAL ONE (11:01)
[2020-06-20] MEDS: methylPREDNISolone Sod Succ 40 MG VIAL IVP SCH ×2 (12:17→19:40)
[2020-06-20] MEDS: HumaLOG 300 UNITS/3 ML VIAL SC PRN (12:39)
[2020-06-20 16:46] LABS: Hemoglobin 7.1 g/dL (14.0-18.0); Platelet Count 117 thou/uL (130-400)
[2020-06-20] MEDS: Albumin 25% 25 GM/100 ML BOT IVPB SCH (18:37)
[2020-06-20] MEDS: Atorvastatin Calcium 40 MG TAB PER TUBE SCH (20:26)
[2020-06-20] MEDS: Melatonin 3 MG TAB PER TUBE SCH (20:27)
[2020-06-21] MEDS: Propofol 1,000 MG/100 ML VIAL IV PRN ×2 (01:20→10:20)
[2020-06-21] MEDS ORDERED: Fentanyl CADD 100 ML ONE (03:23)
[2020-06-21] MEDS: Fentanyl CADD 100 ML IV SCH (03:26)
[2020-06-21] MEDS: methylPREDNISolone Sod Succ 40 MG VIAL IVP SCH ×3 (03:26→21:35)
[2020-06-21 04:46] LABS: INR-International Normal Ratio 1.1; PTT 29.4 sec (22.9-36.1); Prothrombin Time 14.1 sec (12.0-14.7)
[2020-06-21 05:01] LABS: Anion Gap 12 mmol/L (10-20); BUN (Urea Nitrogen) 65 mg/dL (8.4-25.7); Calc. Creatinine Clearance 75 mL/min (70-130); Carbon Dioxide 32 mmol/L (23-31); Chloride 101 mmol/L (98-107); Glucose 99 mg/dL (80-115); Potassium 4.3 mmol/L (3.5-5.1); Sodium 141 mmol/L (136-145)
[2020-06-21 05:25] LABS: Band 5 % (5-11); Hemoglobin 8.5 g/dL (14.0-18.0); Lymphocytes 12 % (21-51); MDiff Complete? YES; Mean Corpuscular Hemoglobin 30.9 pg (27.0-31.0); Mean Corpuscular Volume 88.2 fL (78.0-98.0); Mean Platelet Volume 9.6 fL (7.4-10.4); Monocytes 4 % (0-10); Neutrophil 79 % (42-75); Platelet Count 117 thou/uL (130-400); Platelet Morphology Comment Appears Decreased; RBC Distribution Width 14.2 % (11.5-14.5); Red Blood Cell (RBC) Count 2.74 mill/uL (4.70-6.10); White Blood Cell (WBC) Count 20.3 thou/uL (4.8-10.8)
[2020-06-21 05:43] VITALS: BMI 37.4
[2020-06-21] MEDS: NPH, Human Insulin Isophane 300 UNIT/3 ML VIAL SC SCH ×2 (05:59→17:58)
[2020-06-21 06:55] LABS: Actual Bicarbonate (HCO3a) 28.4 mEq/L (22-28); Base Excess (BEa) 3.7 mEq/L (-2.0 to +3.0); CO2 Tension 43.3 mmHg (35.0-45.0); Calcium, Ionized (arterial) 0.98 mmol/L (1.12-1.30); Carboxyhemoglobin (COHb) 0.6 gm% (0.0-3.0); O2 Tension (PaO2), arterial 72.2 mmHg (> 80.0); Potassium - ABG Lab 4.26 mmol/L (3.70-5.30); pH, Arterial 7.43 (7.35-7.45)
[2020-06-21] MEDS: Mometasone 100 MCG/Formoterol 5 MCG 120 PUFF INHALER INH SCH ×2 (06:59→18:39)
[2020-06-21 07:02] LABS: Puncture Site RRA
[2020-06-21 07:03] LABS: ALV-art Gradient 158.875 mmHg (0-20)
[2020-06-21] MEDS: Cholecalciferol (Vitamin D3) 400 UNITS TAB PO SCH (08:25)
[2020-06-21] MEDS: Thiamine 100 MG TAB PER TUBE SCH (08:25)
[2020-06-21] MEDS: Ascorbic Acid 500 mg Chewable Tablet PER TUBE SCH ×2 (08:25→21:34)
[2020-06-21] MEDS: guaiFENesin ER 600 MG TAB PO SCH ×2 (08:25→21:35)
[2020-06-21] MEDS: Zinc Sulfate 220 MG CAP PER TUBE SCH (08:26)
[2020-06-21] MEDS: Fluconazole In NaCl,Iso-Osm 400 MG in Premix Bag 1 BAG IVPB SCH (08:31)
[2020-06-21] MEDS: Pantoprazole 40 MG VIAL IVP SCH ×2 (08:32→21:35)
[2020-06-21] MEDS ORDERED: Heparin 10,000 UNITS/ 10 ML VIAL ONE (10:36)
[2020-06-21] MEDS ORDERED: Norepinephrine 8 MG/0.9% NS 0 ML ONE (14:06)
[2020-06-21] MEDS ORDERED: Albumin 25% 25 GM/100 ML BOT IVPB ONE (14:30)
[2020-06-21] MEDS ORDERED: Albumin 25% 25 GM/100 ML BOT IVPB SCH (14:45)
[2020-06-21 16:12] VITALS: TEMP 97.5
[2020-06-21 18:43] VITALS: BP 83/43
[2020-06-21] MEDS: Melatonin 3 MG TAB PER TUBE SCH (21:34)
[2020-06-21] MEDS: Atorvastatin Calcium 40 MG TAB PER TUBE SCH (21:35)
[2020-06-21] MEDS ORDERED: Amiodarone 150 MG/3 ML VIAL ONE (22:06)
[2020-06-21] MEDS ORDERED: Sodium Bicarb 50 MEQ/50 ML Abboject 8.4% SYRINGE ONE (22:06)
[2020-06-21] MEDS ORDERED: EPINEPHrine 1 MG/10 ML Abboject SYRINGE ONE (22:06)
[2020-06-21] MEDS ORDERED: Calcium Chloride 1 GM/10 ML Abboject SYRINGE ONE (22:06)
[2020-06-21] MEDS ORDERED: Magnesium 5 GM/10 ML Abboject SYRINGE ONE (22:06)
== END 2020-06-21 22:34 | disposition expired | DRG 870 ==
LOC: ERS 16:08 → 2SW 20:13 → IMCU/EMU 06-03 11:52 → CCU 06-09 12:53
PROVIDERS: ADMIT Family Medicine; ATTEND Family Medicine
PROC: 8E0ZXY6 Isolation (ICD-10-PCS; 2020-05-25)
PROC: 5A09557 Assistance with Respiratory Ventilation, Greater than 96 Consecutive Hours, Continuous Positive Airway Pressure (ICD-10-PCS; 2020-06-02)
PROC: 5A12012 Performance of Cardiac Output, Single, Manual (ICD-10-PCS; principal; 2020-06-09)
PROC: 5A1955Z Respiratory Ventilation, Greater than 96 Consecutive Hours (ICD-10-PCS; 2020-06-09)
PROC: 0BH18EZ Insertion of Endotracheal Airway into Trachea, Via Natural or Artificial Opening Endoscopic (ICD-10-PCS; 2020-06-09)
PROC: 05HY33Z Insertion of Infusion Device into Upper Vein, Percutaneous Approach (ICD-10-PCS; 2020-06-09)
PROC: 30233N1 Transfusion of Nonautologous Red Blood Cells into Peripheral Vein, Percutaneous Approach (ICD-10-PCS; 2020-06-11)
PROC: 0B9D8ZX Drainage of Right Middle Lung Lobe, Via Natural or Artificial Opening Endoscopic, Diagnostic (ICD-10-PCS; 2020-06-16)
PROC: 06HY33Z Insertion of Infusion Device into Lower Vein, Percutaneous Approach (ICD-10-PCS; 2020-06-17)
PROC: 5A1D70Z Performance of Urinary Filtration, Intermittent, Less than 6 Hours Per Day (ICD-10-PCS; 2020-06-17)
PROC: 06HY33Z Insertion of Infusion Device into Lower Vein, Percutaneous Approach (ICD-10-PCS; 2020-06-17)
PROC: 30233K1 Transfusion of Nonautologous Frozen Plasma into Peripheral Vein, Percutaneous Approach (ICD-10-PCS; 2020-06-19)
PROC: 0W3P8ZZ Control Bleeding in Gastrointestinal Tract, Via Natural or Artificial Opening Endoscopic (ICD-10-PCS; 2020-06-19)
PROC: 5A2204Z Restoration of Cardiac Rhythm, Single (ICD-10-PCS; 2020-06-21)
PROC: 5A12012 Performance of Cardiac Output, Single, Manual (ICD-10-PCS; 2020-06-21)
DX: A41.89 Other specified sepsis (principal); E11.00 Type 2 diabetes mellitus with hyperosmolarity without nonketotic hyperglycemic-hyperosmolar coma (NKHHC); U07.1 COVID-19; J96.01 Acute respiratory failure with hypoxia; I50.23 Acute on chronic systolic (congestive) heart failure; J12.82 Pneumonia due to coronavirus disease 2019; N17.0 Acute kidney failure with tubular necrosis; K26.4 Chronic or unspecified duodenal ulcer with hemorrhage; K29.71 Gastritis, unspecified, with bleeding; I21.A1 Myocardial infarction type 2; L97.909 Non-pressure chronic ulcer of unspecified part of unspecified lower leg with unspecified severity; I13.0 Hypertensive heart and chronic kidney disease with heart failure and stage 1 through stage 4 chronic kidney disease, or unspecified chronic kidney disease; E87.0 Hyperosmolality and hypernatremia; E87.2 Acidosis; E46 Unspecified protein-calorie malnutrition; D62 Acute posthemorrhagic anemia; L03.115 Cellulitis of right lower limb; I48.92 Unspecified atrial flutter; I47.2 Ventricular tachycardia; B97.29 Other coronavirus as the cause of diseases classified elsewhere; R65.20 Severe sepsis without septic shock; I25.10 Atherosclerotic heart disease of native coronary artery without angina pectoris; I83.009 Varicose veins of unspecified lower extremity with ulcer of unspecified site; N18.2 Chronic kidney disease, stage 2 (mild); E11.22 Type 2 diabetes mellitus with diabetic chronic kidney disease; I25.5 Ischemic cardiomyopathy; I46.9 Cardiac arrest, cause unspecified; D69.6 Thrombocytopenia, unspecified; E86.0 Dehydration; E87.8 Other disorders of electrolyte and fluid balance, not elsewhere classified; Z51.5 Encounter for palliative care; J98.09 Other diseases of bronchus, not elsewhere classified; E66.01 Morbid (severe) obesity due to excess calories; D63.1 Anemia in chronic kidney disease; E88.09 Other disorders of plasma-protein metabolism, not elsewhere classified; E83.51 Hypocalcemia; I49.5 Sick sinus syndrome; I48.0 Paroxysmal atrial fibrillation; Z88.5 Allergy status to narcotic agent; Z79.4 Long term (current) use of insulin; Z79.82 Long term (current) use of aspirin; Z95.1 Presence of aortocoronary bypass graft; Z98.42 Cataract extraction status, left eye; Z98.41 Cataract extraction status, right eye; Z89.512 Acquired absence of left leg below knee; Z83.3 Family history of diabetes mellitus; Z79.02 Long term (current) use of antithrombotics/antiplatelets; Z79.899 Other long term (current) drug therapy; Z68.37 Body mass index [BMI] 37.0-37.9, adult
CPT/HCPCS: 0240U; 31624; 36415; 36416; 36430; 36600; 70450; 71045; 71275; 72125; 80048; 80053; 80076; 80202; 81001; 82040; 82271; 82274; 82553; 82570; 82607; 82728; 82746; 82805; 83036; 83540; 83550; 83605; 83735; 83880; 84100; 84134; 84145; 84156; 84300; 84484; 84540; 85025; 85379; 85610; 85652; 85730; 86140; 86704; 86706; 86803; 86850; 86900; 86901; 87040; 87070; 87086; 87324; 87340; 87449; 90935; 93005; 93010; 93306; 93970; 94002; 94003; 94660; 96365; 96366; 96367; 96372; 96375; C9113; G0257; J0171; J0282; J0696; J1100; J1450; J1642; J1644; J1650; J1720; J1756; J1815; J1940; J2001; J2060; J2185; J2405; J2704; J2920; J2930; J3010; J3370; J3475; J3490; J7050; J8540; P9016; P9047; P9059; Q5105; Q9967; S0028